=== PATIENT | female | born 1925 | race Caucasian/White ===

== ENCOUNTER 2016-11-13 12:42 | Inpatient (IN) ==
[2016-11-13] MEDS ORDERED: Aspirin 81 MG TAB.CHEW PO ONE (12:47)
[2016-11-13 13:06] LABS: Basophils % 0.4 %; Eosinophils % 0.1 %; Hematocrit 35.4 % (35.3-44.9); Hemoglobin 11.8 g/dL (11.5-15.4); Immature Granulocytes % 0.4 % (0-4); Lymphocytes # 0.5 K/mcL (0.6-4.6); Lymphocytes % 6.3 %; Mean Corpuscular HGB Conc 33.3 g/dL (31.6-35.5); Mean Corpuscular Hemoglobin 30.2 pg (28.0-33.3); Mean Corpuscular Volume 90.5 fL (83.0-100.0); Monocytes # 0.3 K/mcL (0.0-1.3); Monocytes % 4.1 %; Neutrophils # 6.3 K/mcL (1.6-8.9); Platelet Count 171 K/mcL (140-400); Red Blood Count 3.91 M/mcL (3.82-4.97); Red Cell Distribution Width 13.8 % (11.5-14.5); Segmented Neutrophils % 88.7 %
[2016-11-13 13:10] LABS: INR 1.6
[2016-11-13 13:17] LABS: Calcium 10.2 mg/dL (8.6-10.8); Potassium 2.9 mEq/L (3.5-4.5)
[2016-11-13] MEDS ORDERED: Nitroglycerin 0.4 MG TAB.SUBL SL PRN (13:27)
--- NOTE | 2016-11-13 13:28 | Emergency Department Note ---
Disposition Clinical Impression: Elevated troponin Chest pain Qualifiers: Chest pain type: unspecified Qualified Code(s): R07.9 - Chest pain, unspecified CKD (chronic kidney disease) Qualifiers: Chronic kidney disease stage: stage 3 (moderate) Qualified Code(s): N18.3 - Chronic kidney disease, stage 3 (moderate) Disposition: Admitted As Inpatient Condition: Good Chest Pain HPI - General Chief Complaint: ED Chest Pain Stated Complaint: chest pain Time Seen by Provider: 11/13/16 12:47 Source: EMS Mode of arrival: EMS Limitations: no limitations Vital Signs Reviewed: Yes Nursing Notes Reviewed: Yes - History of Present Illness HPI Narrative: 89-year-old female history of A. fib, CHF with a history of pacemaker since for evaluation of chest pain that started early this morning. Nonexertional retrosternal without radiation. No history of this pain in the past. Patient denies any vomiting but does note some nausea. No abdominal pain. No shortness of breath. Patient denies history of pain in the past. Patient denies any aggravating or alleviating symptoms. Patient states that she is on eloquent. Patient was told that she should not take aspirin by her primary doctor because she is on eloquent. Patient refused aspirin in route and also on arrival in the ER. Patient received 2 nitroglycerin prior to arrival without significant relief area will trial nitroglycerin here in the emergency department Pt complaint: chest pain Onset (ago): hour(s) Severity scale (1-10): 7 - Related Data Home Medications Medication Instructions Recorded Confirmed Furosemide [Lasix] 20 mg PO DAILY 06/12/15 11/13/16 LevETIRAcetam [Keppra] 250 mg PO DAILY 06/12/15 11/13/16 Potassium Chloride 10 meq PO DAILY 06/12/15 11/13/16 Chlorthalidone 25 mg PO DAILY 06/16/15 11/13/16 Apixaban [Eliquis] 2.5 mg PO BID 08/11/16 11/13/16 Acetaminophen [Tylenol] 1,000 mg PO BID PRN 11/13/16 11/13/16 Clotrimazole 1% CRM [Lotrimin 1%] 1 appl TP BID 11/13/16 11/13/16 Melatonin 5 mg PO HS 11/13/16 11/13/16 Mupirocin [Bactroban Oint] 1 appl TP BID 11/13/16 11/13/16 Ondansetron HCl [Zofran] 4 mg PO QID PRN 11/13/16 11/13/16 Tramadol HCl [Ultram] 50 mg PO BID PRN 11/13/16 11/13/16 Allergies Allergy/AdvReac Type Severity Reaction Status Date / Time azithromycin Allergy See Verified 11/13/16 12:44 [From Zithromax Z-Kimo] Comments Sulfa (Sulfonamide Allergy See Verified 11/13/16 12:44 Antibiotics) Comments All systems ED: reviewed and negative except as stated. Constitutional: Reports: as per HPI. Denies: fever Eyes: Reports: as per HPI ENT ED: Reports: as per HPI Cardiovascular: Reports: as per HPI, chest pain. Denies: palpitations Respiratory: Reports: as per HPI Gastrointestinal: Reports: as per HPI, nausea. Denies: abdominal pain, vomiting Genitourinary: Reports: as per HPI Musculoskeletal: Reports: as per HPI Integumentary: Reports: as per HPI Neurological: Reports: as per HPI Psychiatric: Reports: as per HPI Endocrine: Reports: as per HPI Chest Pain PMH - Past Medical History Medical history: Reports: atrial fibrillation, CHF, TIA Surgical history: Reports: non-contributory, thyroidectomy Psychiatric history: Reports: anxiety VIDEO PRODUCTION ENGINEER history: Reports: no VIDEO PRODUCTION ENGINEER history, other - Social History Smoking Status: Never smoker Alcohol use: Reports: none Drug use: Reports: none Physical Exam - General Limitations: no limitations General appearance: alert, in no apparent distress - Head Head exam: atraumatic, normocephalic, normal inspection - Eye Eye exam: Present: normal appearance, EOMI - ENT ENT exam: normal exam, mucous membranes moist - Neck Neck exam: Present: normal inspection, trachea midline - Chest Chest inspection: Present: normal inspection, symmetric chest wall rise - Respiratory Respiratory exam: Present: normal lung sounds bilaterally. Absent: respiratory distress - Cardiovascular Cardiovascular exam: Present: regular rate, normal rhythm - Abdominal Exam Abdominal exam: Present: soft, Non-Tender - Extremities Exam Extremities exam: Present: normal inspection. Absent: pedal edema - Back Exam Back exam: Present: normal inspection - Neurological Exam Neurological exam: Present: alert, oriented X3 - Skin Skin exam: Present: warm, dry, intact, normal color Course Vital Signs Temperature 98.3 F 11/13/16 12:49 Pulse Rate 68 11/13/16 12:49 Respiratory Rate 16 11/13/16 12:49 Blood Pressure 132/72 11/13/16 12:49 O2 Sat by Pulse Oximetry 97 11/13/16 12:49 Temperature 98.2 F 11/13/16 19:37 Pulse Rate 72 11/13/16 19:37 Respiratory Rate 18 11/13/16 19:37 Blood Pressure 138/71 11/13/16 19:37 O2 Sat by Pulse Oximetry 94 11/13/16 19:37 Oxygen Delivery Oxygen Delivery Room Air Chest Pain - MDM Narrative Medical decision making narrative: 89-year-old female presents for violation of chest pain. Patient states pain started this morning. Patient's pain was not entirely resolved with nitroglycerin. Patient received small doses of opioids to further resolve the pain. Patient does have a pacemaker. Patient's chest x-ray and lab work are significant for an elevated troponin which has not been elevated in the past. Patient does have an elevated kidney function as well. Patient did have prior elevated troponins but not recently. Patient was admitted to the hospitalist service for further evaluation. Patient does live at home. - Lab Data Lab results reviewed: Yes I reviewed the patient's lab results. Result diagrams: 11/13/16 12:58 11/13/16 12:58 Lab Results 11/13/16 11/13/16 11/13/16 Range/Units 12:58 12:58 12:58 WBC 7.1 (4.3-11.1) K/mcL RBC 3.91 (3.82-4.97) M/mcL Hgb 11.8 (11.5-15.4) g/dL Hct 35.4 (35.3-44.9) % MCV 90.5 (83.0-100.0) fL MCH 30.2 (28.0-33.3) pg MCHC 33.3 (31.6-35.5) g/dL RDW 13.8 (11.5-14.5) % Plt Count 171 (140-400) K/mcL MPV 10.0 (9.4-12.4) fL Immature Gran % 0.4 (0-4) % Seg Neutrophils % 88.7 % Lymphocytes % 6.3 % Monocytes % 4.1 % Eosinophils % 0.1 % Basophils % 0.4 % Neutrophils # 6.3 (1.6-8.9) K/mcL Lymphocytes # 0.5 L (0.6-4.6) K/mcL Monocytes # 0.3 (0.0-1.3) K/mcL Eosinophils # 0.0 (0.0-0.6) K/mcL Basophils # 0.0 (0.0-0.2) K/mcL PT 18.0 H (9.4-12.1) Seconds INR 1.6 Sodium 140 (136-145) mEq/L Potassium 2.9 L (3.5-4.5) mEq/L Chloride 100 (98-109) mEq/L Carbon Dioxide 29 (19-29) mEq/L BUN 54 H (7-20) mg/dL Creatinine 1.87 H (0.57-1.11) mg/dL Est GFR ( Amer) 31 L (> 60) Est GFR (Non-Af Amer) 25 L (> 60) BUN/Creatinine Ratio 29 H (6-26) Glucose 130 H (70-99) mg/dL Calculated Osmolality 307 H (280-300) Calcium 10.2 (8.6-10.8) mg/dL Troponin I (0-0.03) ng/mL 11/13/16 Range/Units 12:58 WBC (4.3-11.1) K/mcL RBC (3.82-4.97) M/mcL Hgb (11.5-15.4) g/dL Hct (35.3-44.9) % MCV (83.0-100.0) fL MCH (28.0-33.3) pg MCHC (31.6-35.5) g/dL RDW (11.5-14.5) % Plt Count (140-400) K/mcL MPV (9.4-12.4) fL Immature Gran % (0-4) % Seg Neutrophils % % Lymphocytes % % Monocytes % % Eosinophils % % Basophils % % Neutrophils # (1.6-8.9) K/mcL Lymphocytes # (0.6-4.6) K/mcL Monocytes # (0.0-1.3) K/mcL Eosinophils # (0.0-0.6) K/mcL Basophils # (0.0-0.2) K/mcL PT (9.4-12.1) Seconds INR Sodium (136-145) mEq/L Potassium (3.5-4.5) mEq/L Chloride (98-109) mEq/L Carbon Dioxide (19-29) mEq/L BUN (7-20) mg/dL Creatinine (0.57-1.11) mg/dL Est GFR ( Amer) (> 60) Est GFR (Non-Af Amer) (> 60) BUN/Creatinine Ratio (6-26) Glucose (70-99) mg/dL Calculated Osmolality (280-300) Calcium (8.6-10.8) mg/dL Troponin I 0.07 H* (0-0.03) ng/mL - Radiology Data Radiology results reviewed: Yes I reviewed the patient's radiology results. - EKG Data EKG attestation: Yes I reviewed and interpreted this EKG. EKG results narrative: Electronic ventricular pacemaker at a rate of 78. QTC 47. QRS duration 146. No ST changes that are notable on EKG. S.B.ALakeisha - Barbara.Karin.Pauline Situation: Demographics Background: Presenting Complaint Assessment: Vital Signs, Course and respsone to treatment, Patient/Family Expectation Recommendation: Barrier(s) to disposition, Recommendation based on pending studies, treatments, or consults S.B.A.RReji Report Given to: Dr. Dalia Urbano Repor Time: 14:39
[2016-11-13] MEDS ORDERED: *HR* Morphine 2 MG/ML SYRINGE IVP ONE (13:36)
[2016-11-13] MEDS ORDERED: Ondansetron 4 MG/2 ML VIAL IVP ONE (13:36)
--- NOTE | 2016-11-13 13:44 | Emergency Department Note ---
START Narrative - START START: I examined this patient and my medical decision-making was reviewed with the PRODUCTION PLANNER/PA/Advanced Practice Nurse/Resident Physician. I agree with the documented findings, disposition and treatment plan as described except to the extent set forth below. ED attending note: Patient seen with emergency medicine resident Dr Matt. We independently evaluated the patient. We independently had [id number] contact with the patient. Please see a copy of his note for details of the history and physical, evaluation, management and disposition of this emergency Department patient. Briefly: A 89-year-old female history of A. fib and pacemaker, presents with nonexertional chest pain unresponsive to nitroglycerin. Patient has not had a recent stress test. She does have a chronic kidney disease. EKG shows paced rhythm with no acute ischemic changes. Patient is hemodynamically stable. Receiving a cardiac analgesics to help control her chest discomfort. Troponin elevated. Provided 45 minutes critical care service for this patient. Patient will be admitted for chest pain with elevated troponin acute coronary syndrome. Disposition pending, awaiting callback from hospitalists. Patient is comfortable with this plan.
[2016-11-13] MEDS ORDERED: Naloxone 0.4 MG/ML INJ IVP PRN (17:29)
[2016-11-13] MEDS ORDERED: Acetaminophen 325 MG TABLET PO PRN (17:29)
--- NOTE | 2016-11-13 18:14 | Internal Med History&Physical ---
Date of Encounter: 11/13/16 Time of Encounter: 18:10 Assessment and Plan (1) Chest pain Current visit: Yes Status: Acute This is not likely a chest pain. This is most likely and epigastric pain. This is likely secondary to gastroenteritis. Patient has ongoing nausea. She is dehydrated. That is the reason her creatinine is elevated. Plan: We will start patient on IV normal saline 75 mL per hour. We will check labs tomorrow morning. We will cycle troponin. We will get echocardiogram. Qualifiers: Chest pain type: unspecified Qualified Code(s): R07.9 - Chest pain, unspecified (2) Elevated troponin Current visit: Yes Status: Acute Likely secondary to renal impairment. The reason for elevated troponin can be multifactorial. (3) CKD (chronic kidney disease) Current visit: Yes Status: Acute Chronic kidney disease is likely secondary age related. The possibility of an acute component secondary to dehydration. Qualifiers: Chronic kidney disease stage: stage 3 (moderate) Qualified Code(s): N18.3 - Chronic kidney disease, stage 3 (moderate) (4) DVT prophylaxis Current visit: Yes Status: Acute Patient on Elliquis Patient's home medication is Keppra which we continued. Patient is also taking elliquis and the reason for which she is not sure. Medical decision making: This patient has a moderate to severe risk of worsening cardiac perfusion in spite of being on appropriate treatment. Internal Medicine - H&P: HPI Chief complaint: Epigastric discomfort Admitted From: Emergency Dept Plans for Post Hospital Care: Home History of present illness: PCP: Dr Rod Russell. Brief PMH: HTN, Epilepsy, on Anticoagulation ? Cause HPI: Patient was complaining of a epigastric pain which was nonradiating and localized pain associated with nausea. Her symptoms started this morning around 7:30 am. Patient was at home by herself. She tried some home remedies but it did not help and that is the reason she called 911. Patient was evaluated by EMS. She denies chest pain, palpitation, dizziness, diplopia, vomiting, abdominal pain or diarrhea. Course in the emergency room: Patient was evaluated in the emergency room. Basic labs were drawn. Noted that patient has renal impairment. Also noted that patient's troponin is elevated. Reason for admission: Rule out ACS. Family history: Noncontributory Past Med Surg Social Fam HX - Past Medical History Medical history: atrial fibrillation, CHF, TIA Psychiatric history: anxiety - Past Surgical History Surgical History: non-contributory, thyroidectomy - Social History Smoking Status: Never smoker Smokeless Tobacco Status: No Alcohol use: none Drug use: none - Family History Mother History Unknown: Yes Father History Unknown: Yes Internal Medicine - H&P: Meds Furosemide [Lasix] 20 mg PO DAILY 06/12/15 [History] LevETIRAcetam [Keppra] 250 mg PO DAILY 06/12/15 [History] Potassium Chloride 10 meq PO DAILY 06/12/15 [History] Chlorthalidone 25 mg PO DAILY 06/16/15 [History] Apixaban [Eliquis] 2.5 mg PO BID 08/11/16 [History] Acetaminophen [Tylenol] 1,000 mg PO BID PRN 11/13/16 [History] Clotrimazole 1% CRM [Lotrimin 1%] 1 appl TP BID 11/13/16 [History] Melatonin 5 mg PO HS 11/13/16 [History] Mupirocin [Bactroban Oint] 1 appl TP BID 11/13/16 [History] Ondansetron HCl [Zofran] 4 mg PO QID PRN 11/13/16 [History] Tramadol HCl [Ultram] 50 mg PO BID PRN 11/13/16 [History] Allergies azithromycin [From Zithromax Z-Kimo] Allergy (Verified 11/13/16 12:44) See Comments UNKNOWN REACTION Sulfa (Sulfonamide Antibiotics) Allergy (Verified 11/13/16 12:44) See Comments UNKNOWN REACTION All Systems PM: A 10-system review of systems was performed and is negative for pertinent findings except as documented above in the HPI. - Constitutional Constitutional: no chills, no fever(s), no night sweats - EENT Eyes: no change in vision, no discharge, no pain, no photophobia Ears: no ear discharge, no ear pain, no tinnitus Nose, mouth and throat: no dysphagia, no nasal discharge, no neck pain, no sore throat - Cardiovascular Cardiovascular ROS IM: no chest pain, no diaphoresis, no dyspnea, no lightheadedness, no palpitations, no syncope - Respiratory Respiratory: no cough, no dyspnea, no wheezing, no excessive phlegm production - Gastrointestinal Gastrointestinal: no abdominal pain, no diarrhea, no hematemesis, no hematochezia, no melena, no nausea, no vomiting - Genitourinary Genitourinary: no change in urinary stream, no dysuria, no flank pain, no hematuria - Musculoskeletal Musculoskeletal ROS IM: no numbness, no tingling - Integumentary Integumentary IM: no rash, no unusual bruising - Neurological Neurological ROS: no confusion, no convulsions, no focal weakness, no numbness, no tingling, no tremor(s) - Hematologic/Lymphatic Hematologic/Lymphatic: no easy bruising - Constitutional Vitals: Temp Pulse Resp BP Pulse Ox 97.6 F 86 16 122/78 97 11/13/16 15:20 11/13/16 15:20 11/13/16 15:20 11/13/16 15:20 11/13/16 15:20 General appearance: Present: A&O X 3, pleasant, no acute distress, answers questions appropriately - Head Head exam: Present: atraumatic, normocephalic - Eye Eye exam: Present: PERRL, conjuntiva pink, sclera anicteric Pupils: Present: PERRL - Neck Neck exam general surgery: Present: supple, trachea midline. Absent: lymphadenopathy - Respiratory Respiratory exam: Present: CTAB. Absent: accessory muscle use, rales, rhonchi, wheezes - Cardiovascular Cardiovascular exam: Present: RRR, +S1, +S2. Absent: diastolic murmur, gallop, rubs, systolic murmur - GI/Abdominal GI/Abdominal exam: Present: normal bowel sounds, soft, no peritoneal signs. Absent: distended, tenderness - Extremities Exam Extremities exam: Present: warm, radial pulses palpable and symetrical. Absent : calf tenderness, cyanotic, pedal edema - Neurological Exam Neurological exam: Present: CN II-XII intact, oriented X3, no focal deficits. Absent: pronater drift, facial droop, speech deficit - Skin Skin exam: Present: dry, intact Internal Med - H&P Results - Labs CBC & Chem 7: 11/13/16 12:58 11/13/16 12:58 Labs: Results discussed with emergency room physician Teddy
[2016-11-13] MEDS: 0.9 % Sodium Chloride 1,000 ML IVC SCH (19:02)
[2016-11-13] MEDS: Melatonin 3 MG TABLET PO SCH (20:47)
[2016-11-13] MEDS: APIXABAN 2.5 MG TABLET PO SCH (20:47)
[2016-11-14 04:04] LABS: Basophils % 0.3 %; Eosinophils % 0.3 %; Hematocrit 33.2 % (35.3-44.9); Immature Granulocytes % 0.3 % (0-4); Lymphocytes # 0.9 K/mcL (0.6-4.6); Lymphocytes % 15.3 %; Mean Corpuscular HGB Conc 33.1 g/dL (31.6-35.5); Mean Corpuscular Volume 90.5 fL (83.0-100.0); Mean Platelet Volume 10.6 fL (9.4-12.4); Monocytes # 0.5 K/mcL (0.0-1.3); Monocytes % 8.8 %; Neutrophils # 4.5 K/mcL (1.6-8.9); Platelet Count 153 K/mcL (140-400); Red Blood Count 3.67 M/mcL (3.82-4.97); Red Cell Distribution Width 13.7 % (11.5-14.5)
[2016-11-14 04:25] LABS: Albumin 3.6 g/dL (3.5-5.0); Albumin/Globulin Ratio 1.2 (1.1-2.2); Bilirubin,Total 1.5 mg/dL (0.2-1.2); Calcium 9.8 mg/dL (8.6-10.8); Chol/HDL Ratio 5.1 (0-4.9); Globulin 3.1 g/dL (2.4-3.5); Magnesium 2.2 mg/dL (1.6-2.6); Phosphorous 4.1 mg/dL (2.3-4.7); Potassium 3.5 mEq/L (3.5-4.5); Total Protein 6.7 g/dL (6.0-8.3)
[2016-11-14] MEDS ORDERED: 0.9 % Sodium Chloride 500 ML IVC ONE (08:16)
[2016-11-14] MEDS: levETIRAcetam 250 MG TABLET PO SCH (08:33)
[2016-11-14] MEDS: APIXABAN 2.5 MG TABLET PO SCH ×2 (08:33→22:11)
[2016-11-14] MEDS: 0.9 % Sodium Chloride 1,000 ML IVC SCH (09:28)
--- NOTE | 2016-11-14 10:11 | Internal Med Progress Note ---
Date of Encounter: 11/14/16 Time of Encounter: 10:47 - Assessment and plan (1) Chest pain Current Visit: Yes Status: Acute Assessment and plan: Per H/P, patient has epigastric pain patient is a poor historian EKG showed Afib She had troponin elevation peak 0.11 She is not having chest pain at time of review She is on eliquis for AC I suspect her troponin elevation is from CHARLES on CKD ECHO has been ordered, will follow Qualifiers: Chest pain type: unspecified Qualified Code(s): R07.9 - Chest pain, unspecified (2) Atrial fibrillation Current Visit: Yes Status: Chronic Assessment and plan: Chronic, s/p AICD HR controlled Continue meds Continue eliquis Qualifiers: Atrial fibrillation type: chronic Qualified Code(s): I48.2 - Chronic atrial fibrillation (3) Seizure disorder Current Visit: Yes Status: Chronic Assessment and plan: Per patient and EMR, it was a suspicion of Seizures in 2013 when she had recurrent syncope She has been filling keppra at her pharmacy but has refused to take it in- patient Continue seizure precautions Encourage to take medicatio (4) Elevated troponin Current Visit: Yes Status: Acute Assessment and plan: As in chest pain, downtrending, follow ECHO (5) DVT prophylaxis Current Visit: Yes Status: Acute Assessment and plan: On Eliquis (6) Acute on chronic renal insufficiency Current Visit: Yes Status: Acute Assessment and plan: CKD III with baseline between 1.5-1.7 It is likely that her CKD has progressed since 2014 However, will give 500cc bolus will reevaluate a.m Renal eval if persistent - Subjective Interval history: Seen and evaluated at bedside When asked about her symptoms She reports feeling "chest tightness but is pointing to her epigastric region She denies nausea, vomiting, diaphoresis She has Afib with an ICD, CHF, Epilepsy and CKD III troponin has been adynamic-0.07-0.11-0.08 EKG is paced rhythm I have ordered an ECHO, will follow Kidney function is slightly worse today than on admission, potassium has improved - Constitutional Vitals: Temp Pulse Resp BP Pulse Ox 98.1 F 71 17 94/55 95 11/14/16 07:48 11/14/16 07:48 11/14/16 07:48 11/14/16 07:48 11/14/16 08:36 General appearance: Present: A&O X 3, pleasant, no acute distress, answers questions appropriately - Head Head exam: Present: atraumatic - Eye Eye exam: Present: PERRL, conjuntiva pink, sclera anicteric Pupils: Present: PERRL - Neck Neck exam general surgery: Present: supple, trachea midline. Absent: lymphadenopathy - Respiratory Respiratory exam: Present: CTAB. Absent: accessory muscle use, rales, rhonchi, wheezes Additional comments: Chest wall not tender, AICD site is clean - Cardiovascular Cardiovascular exam: Present: RRR, +S1, +S2. Absent: diastolic murmur, gallop, rubs, systolic murmur - GI/Abdominal GI/Abdominal exam: Present: normal bowel sounds, soft, no peritoneal signs. Absent: distended, tenderness - Extremities Exam Extremities exam: Present: warm, radial pulses palpable and symetrical. Absent : calf tenderness, cyanotic, pedal edema - Neurological Exam Neurological exam: Present: alert, CN II-XII intact, oriented X3, no focal deficits. Absent: pronater drift, facial droop, speech deficit - Skin Skin exam: Present: dry, intact Internal Medicine: Result - Labs CBC & Chem 7: 11/14/16 03:15 11/14/16 03:15 Labs: Short CBC 11/14/16 Range/Units 03:15 WBC 6.0 (4.3-11.1) K/mcL Hgb 11.0 L (11.5-15.4) g/dL Hct 33.2 L (35.3-44.9) % Plt Count 153 (140-400) K/mcL Neutrophils # 4.5 (1.6-8.9) K/mcL BMP 11/14/16 03:15 Sodium 141 Potassium 3.5 Chloride 101 Carbon Dioxide 28 BUN 52 H Creatinine 2.09 H Glucose 106 H Calcium 9.8 Cardiac Enzymes 11/13/16 11/14/16 11/14/16 Range/Units 18:52 03:15 09:32 Troponin I 0.09 H* 0.11 H* 0.08 H* (0-0.03) ng/mL Liver Function 11/14/16 Range/Units 03:15 Total Bilirubin 1.5 H (0.2-1.2) mg/dL AST 21 (5-34) Units/L ALT 7 (0-55) Units/L Alkaline Phosphatase 43 (38-126) Units/L Albumin 3.6 (3.5-5.0) g/dL - ABG Interpretation ABG results: PT/INR, D-dimer PT 18.0 Seconds (9.4-12.1) H 11/13/16 12:58 Consult Discharge Plan - Plan Referrals: Rod Russell MD [Primary Care Provider] - 11/20/16 11:00 am (Follow up with Michelle Garland CNP)
--- NOTE | 2016-11-14 16:45 | Electrocardiograph Report ---
[place] [id number] Test Date: 2016-11-13 Pat Name: Evangelina Canales Department: 112 Room: 2A24 Gender: F Online Advertising Analyst: : [id number] Requested By: Lucas Lopez Order Number: [id number] Reading MD: Daniela Garcia Measurements Intervals [place] Rate: 75 P: ND: 0 QRS: 232 QRSD: 155 T: 43 QT: 460 QTc: 488 Interpretive Statements ELECTRONIC VENTRICULAR PACEMAKER ABNORMAL RHYTHM ECG Electronically Signed On 11-14-2016 16:44:18 EDT by Daniela Garcia
[2016-11-14] MEDS: Melatonin 3 MG TABLET PO SCH (22:11)
--- NOTE | 2016-11-14 22:36 | Electrocardiograph Report ---
[place] [facility] Test Date: 2016-11-13 Pat Name: Evangelina Canales Department: 104 Room: 2A24 Gender: F Patent Agent: : 1925 Requested By: Moris Powers Order Number: [id number] Reading MD: Bhaskar Garcia MD Measurements Intervals [place] Rate: 75 P: DC: 0 QRS: 231 QRSD: 146 T: 39 QT: 458 QTc: 487 Interpretive Statements ELECTRONIC VENTRICULAR PACEMAKER ABNORMAL RHYTHM ECG Electronically Signed On 11-14-2016 22:35:10 EDT by Bhaskar Garcia MD
[2016-11-15] MEDS: levETIRAcetam 250 MG TABLET PO SCH (08:35)
[2016-11-15] MEDS: APIXABAN 2.5 MG TABLET PO SCH ×2 (08:36→22:14)
[2016-11-15] MEDS: 0.9 % Sodium Chloride 1,000 ML IVC SCH (08:36)
[2016-11-15 08:42] LABS: Basophils % 0.7 %; Eosinophils # 0.1 K/mcL (0.0-0.6); Eosinophils % 1.3 %; Hematocrit 34.4 % (35.3-44.9); Hemoglobin 11.1 g/dL (11.5-15.4); Immature Granulocytes % 0.8 % (0-4); Immature Platelets 2.8 % (1.1-6.1); Lymphocytes # 1.4 K/mcL (0.6-4.6); Lymphocytes % 22.8 %; Mean Corpuscular HGB Conc 32.3 g/dL (31.6-35.5); Mean Corpuscular Hemoglobin 29.8 pg (28.0-33.3); Mean Corpuscular Volume 92.5 fL (83.0-100.0); Mean Platelet Volume 10.2 fL (9.4-12.4); Monocytes # 0.5 K/mcL (0.0-1.3); Monocytes % 7.9 %; Neutrophils # 4.1 K/mcL (1.6-8.9); Platelet Count 155 K/mcL (140-400); Red Blood Count 3.72 M/mcL (3.82-4.97); Red Cell Distribution Width 13.6 % (11.5-14.5); Segmented Neutrophils % 66.5 %
[2016-11-15 08:57] LABS: Calcium 9.5 mg/dL (8.6-10.8); Potassium 3.4 mEq/L (3.5-4.5)
--- NOTE | 2016-11-15 12:01 | Internal Med Progress Note ---
Date of Encounter: 11/15/16 Time of Encounter: 12:00 - Assessment and plan (1) Chest pain Current Visit: Yes Status: Acute Assessment and plan: Per H/P, patient has epigastric pain patient is a poor historian, however, she denies CP today and same yesterday EKG showed Afib She had troponin elevation peak 0.11-0.08 She is on eliquis for AC, continue same I suspect her troponin elevation is from CHARLES on CKD ECHO has been ordered, will follow if ECHO does not show WMA, will discharge patient home Qualifiers: Chest pain type: unspecified Qualified Code(s): R07.9 - Chest pain, unspecified (2) Atrial fibrillation Current Visit: Yes Status: Chronic Assessment and plan: Chronic, s/p AICD HR controlled Continue meds Continue eliquis Qualifiers: Atrial fibrillation type: chronic Qualified Code(s): I48.2 - Chronic atrial fibrillation (3) Seizure disorder Current Visit: Yes Status: Chronic Assessment and plan: Per patient and EMR, it was a suspicion of Seizures in 2013 when she had recurrent syncope She has been filling keppra at her pharmacy but has refused to take it in- patient Continue seizure precautions Encourage to take medications (4) Elevated troponin Current Visit: Yes Status: Acute Assessment and plan: As in chest pain, downtrending, follow ECHO (5) DVT prophylaxis Current Visit: Yes Status: Acute Assessment and plan: On Eliquis (6) Acute on chronic renal insufficiency Current Visit: Yes Status: Acute Assessment and plan: CKD III with baseline between 1.5-1.7 It is likely that her CKD has progressed since 2014 However, will give 500cc bolus Cr and GFR slightly improved, almost at baseline - Subjective Interval history: Seen and evaluated at bedside She denies chest pain, nausea, vomiting, diaphoresis She reports her epigastric discomfort has improved She has Afib with an ICD, CHF, Epilepsy and CKD III troponin has been adynamic-0.07-0.11-0.08 EKG is paced rhythm Awaiting ECHO report - Constitutional Vitals: Temp Pulse Resp BP Pulse Ox 97.8 F 72 18 128/66 95 11/15/16 11:39 11/15/16 11:39 11/15/16 11:39 11/15/16 11:39 11/15/16 11:39 General appearance: Present: A&O X 3, pleasant, no acute distress, answers questions appropriately - Head Head exam: Present: atraumatic, normocephalic - Eye Eye exam: Present: PERRL, conjuntiva pink, sclera anicteric Pupils: Present: PERRL - Neck Neck exam general surgery: Present: supple, trachea midline. Absent: lymphadenopathy - Respiratory Respiratory exam: Present: CTAB. Absent: accessory muscle use, rales, rhonchi, wheezes - Cardiovascular Cardiovascular exam: Present: RRR, +S1, +S2. Absent: diastolic murmur, gallop, rubs, systolic murmur - GI/Abdominal GI/Abdominal exam: Present: normal bowel sounds, soft, no peritoneal signs. Absent: distended, tenderness - Extremities Exam Extremities exam: Present: warm, radial pulses palpable and symetrical. Absent : calf tenderness, cyanotic, pedal edema - Neurological Exam Neurological exam: Present: alert, CN II-XII intact, oriented X3, no focal deficits. Absent: pronater drift, facial droop, speech deficit - Skin Skin exam: Present: dry, intact Internal Medicine: Result - Labs CBC & Chem 7: 11/15/16 08:16 11/15/16 08:16 Labs: Short CBC 11/15/16 Range/Units 08:16 WBC 6.1 (4.3-11.1) K/mcL Hgb 11.1 L (11.5-15.4) g/dL Hct 34.4 L (35.3-44.9) % Plt Count 155 (140-400) K/mcL Neutrophils # 4.1 (1.6-8.9) K/mcL BMP 11/15/16 08:16 Sodium 141 Potassium 3.4 L Chloride 106 Carbon Dioxide 30 H BUN 46 H Creatinine 1.71 H Glucose 97 Calcium 9.5 - ABG Interpretation ABG results: PT/INR, D-dimer PT 18.0 Seconds (9.4-12.1) H 11/13/16 12:58 Consult Discharge Plan - Plan Referrals: Rod Russell MD [Primary Care Provider] - 11/20/16 11:00 am (Follow up with Michelle Garland CNP)
--- NOTE | 2016-11-15 14:41 | ECHO - Doppler Report ---
Echocardiogram Name: Evangelina Canales Date of Study: 11/15/2016 Date: 1925 Ht: 60.0 in Medical Record#: [id number] Age: 89 Wt: 90.0 lb Gender: Female BSA: 1.33 Order #: [id number] Location: [facility] Room #: 2A24 Reading Physician: Frederick Mckeon DO, [facility] Appeals Assistant: Jen Rocha Ordering Physician: Kane Manzanares MD Primary Physician: Rod Russell MD Indications: Chest pain, Epigastric pain Impressions: LVEF 35-40%. Global left ventricular systolic dysfunction. Indeterminate diastolic function. Normal right ventricular structure and function. Extremely severe enlargement of the left atrium. Moderately calcified aortic valve leaflets. Mild aortic regurgitation. Severely thickened, rheumatic-appearing mitral valve leaflets with reduced excursion. Moderate mitral regurgitation, which could be underestimated. Mild mitral stenosis suggested by Doppler (Mean gradient 4 mmHg). Visually, the severity of mitral stenosis appears worse. Moderate tricuspid regurgitation. Mild pulmonary hypertension. Left Ventricular Wall Motion: Rest Echo Findings The apex, apical inferior, mid inferior, basal inferior, apical anterior, mid anterior, basal anterior, apical septal, mid inferior septal, basal inferior septal, apical lateral, mid anterior lateral, basal anterior lateral, mid anterior septal, mid inferior lateral, basal anterior septal and basal inferior lateral alfredo were hypokinetic. Findings: Study Quality * Technically adequate exam. ECG Findings * Paced rhythm. Left Ventricle * LVEF 35-40%. * Normal LV chamber size. * Mild concentric left ventricular hypertrophy. * Global left ventricular systolic dysfunction. * Indeterminate diastolic function. Right Ventricle * Normal right ventricular structure and function. Left Atrium * Extremely severe enlargement of the left atrium. Right Atrium * Mildly dilated right atrium. Interatrial Septum * No evidence of PFO by color Doppler. Aortic Valve * Trileaflet aortic valve. * Moderately calcified aortic valve leaflets. * Mild aortic regurgitation. * No aortic stenosis. Mitral Valve * Severely thickened mitral valve leaflets with reduced excursion. * Mild mitral annular calcification. * Moderate mitral regurgitation, which could be underestimated. * Mild mitral stenosis suggested by Doppler (Mean gradient 4 mmHg). Visually, the severity of mitral stenosis appears worse. Tricuspid Valve * Normal tricuspid valve structure. * Moderate tricuspid regurgitation. * Mild pulmonary hypertension. Pulmonic Valve * Normal pulmonic valve structure and function. * Trace pulmonic regurgitation. Aorta * Normally sized aortic root. Pericardium * The pericardium appears normal. IVC * Normal IVC dimensions and inspiratory collapse. Pulmonary Artery * Normal visualized portions of the main pulmonary artery. Device lead * A device lead was visualized in the right atrium and right ventricle. History Hypertension Rheumatic Fever Family History of CAD Congestive Heart Failure Pacer/ICD Implant 08/24/2014 a Previous Echo was performed. Measurements: BP: 122/ 62 2D Normal Values RVIDd: 2.80 cm <2.7 cm IVSd: 1.60 cm 0.6 - 1.0 cm LVIDd: 4.80 cm 3.7 - 5.6 cm LVPWd: 1.40 cm 0.6 - 1.1 cm LVIDs: 3.90 cm 1.5 - 3.6 cm AO: 2.50 cm < 4.0 cm LA: 5.60 cm 2.0 - 4.0cm %FS: 18.70 cm >25 % LA volume: 252 Mitral Valve Peak Velocity 1.60 m/sec Mean Velocity:.92 m/sec Peak Grad:10.00 mmHg Mean Grad:4.00 mmHg Pressure Time:171.00 msec Valve Area:1.29 cm2 Peak E:1.26 m/sec Peak E' Lat Isai:6.63 cm/s Peak E' Med Isai:3.51 cm/s E/E' Lat Ratio:19 E/E' Med Ratio:35.9 Tricuspid Valve TV Regurg Peak Grad: 34.00mmHg TV Regurg Peak Isai: 2.92m/sec Updated by Frederick Mckeon DO, FACPatti, JUSTIN MENDOZA on 11/15/2016 2:34:45 PM electronically signed on 11/15/2016 2:36:48 PM with status of Final Wall Motion Adams: 1=Normal, 2=Hypokinesis, 3=Akinesis, 4=Dyskinesis, 5=Aneurysmal, 6=Hyperkinetic, X=Not Visualized (Blank)=Missing
--- NOTE | 2016-11-15 15:54 | Cardiology Consult Note ---
Date of Encounter: 11/15/16 Time of Encounter: 16:00 Assessment and Plan (1) Elevated troponin Current Visit: Yes Status: Acute Mild troponin elevation in the setting of CHARLES on CKD; doubt ACS, likely demand ischemia. Presented with epigastric pain, nausea and vomiting. Denies chest pain/ discomfort, arm/jaw/neck/or back pain. Denies dyspnea. ECG shows paced rhythm. Hx of non-ischemic cardiomyopathy. Recommend medical management. Follow-up with Dr. Lara ([facility]) in 2-3 weeks. (2) Non-ischemic cardiomyopathy Current Visit: Yes Status: Acute Long-standing hx of non-ischemic cardiomyopathy with systolic dysfunction dating back to 2006. TTE shows EF 35-40%, prior was 30%. s/p AICD implant--follows [facility]. Appears euvolemic upon exam. Continue home maintenance diuretic. Will add low dose Toprol XL. No ACEi/ARB due to CKD. Follow-up with Dr. Lara at [facility] in the outpatient setting within 2-3 weeks. (3) Atrial fibrillation Current Visit: Yes Status: Chronic Hx of atrial fibrillation, anticoagulated on Eliquis. Rate controlled, avg HR=73 paced. Qualifiers: Atrial fibrillation type: chronic Qualified Code(s): I48.2 - Chronic atrial fibrillation Discussion w patient/family: The assessment and plan as outlined above was discussed with the patient and/or family members who expressed understanding and agreement. All questions were answered. Thank you for involving us in the care of your patient. Please call with any questions. The patient will be discussed and reviewed with Dr. Goyal; changes to be made accordingly. History of Present Illness Consult date: 11/15/16 Requesting physician: Kane Manzanares Consult reason: Cardiomyopathy Chief complaint: Epigastric pain History of present illness: Ms. Canales is a 89 year old female with PMH significant for non-ischemic cardiomyopathy s/p AICD, CKD, and afib (eliquis) who presented to the ED on 11/13 with epigastric pain associated with nausea and vomiting. Cardiology consulted today due to EF 35-40% as demonstrated on TTE. Upon review, patient has a long-standing hx of systolic CHF dating back to 2006. She follows routinely with Dr. Lara at [facility]. Denies recent ICD shock or fire. Prior CV testing includes: TTE (limited) 1/25/15: Moderate-severely decreased LV systolic function, LVEF 30-35%, diffuse hypokinesis with regional variations.Mild concentric left ventricular hypertrophy.Normal right ventricular structure and function.Device lead seen in right atrium and right ventricle. Severely dilated left atrium.Mildly dilated right atrium.Mildly thickened aortic valve leaflets.Moderately thickened rheumatic-appearing mitral valve leaflets. TTE 06/15/14: LVEF 30%. Severe global left ventricular systolic dysfunction, indeterminate diastolic function.Normal RV size with mild hypokinesis. Severely biatrial enlargement. Mild aortic regurgitation.Moderately thickened MV leaflets with reduced mobility. No significant stenosis by Doppler, but likely underestimated. Mild mitral regurgitation.Moderate tricuspid regurgitation.Severe pulmonary hypertension. Estimated RVSP is 55 mmHg.A device lead was visualized in the right atrium and right ventricle. TTE 02/06/2007: EF 35-40% Past Med Surg Social Fam HX - Past Medical History Attestation: Yes The following information was validated with the patient. Source: patient, old records reviewed Medical history: atrial fibrillation, CHF, renal disease, TIA Psychiatric history: anxiety - Past Surgical History Surgical History: non-contributory, thyroidectomy - Social History Smoking Status: Never smoker Smokeless Tobacco Status: No Alcohol use: none Drug use: none - Family History Mother History Unknown: Yes Father History Unknown: Yes Medications and Allergies Furosemide [Lasix] 20 mg PO DAILY 06/12/15 [History] LevETIRAcetam [Keppra] 250 mg PO DAILY 06/12/15 [History] Potassium Chloride 10 meq PO DAILY 06/12/15 [History] Chlorthalidone 25 mg PO DAILY 06/16/15 [History] Apixaban [Eliquis] 2.5 mg PO BID 08/11/16 [History] Acetaminophen [Tylenol] 1,000 mg PO BID PRN 11/13/16 [History] Clotrimazole 1% CRM [Lotrimin 1%] 1 appl TP BID 11/13/16 [History] Melatonin 5 mg PO HS 11/13/16 [History] Mupirocin [Bactroban Oint] 1 appl TP BID 11/13/16 [History] Ondansetron HCl [Zofran] 4 mg PO QID PRN 11/13/16 [History] Tramadol HCl [Ultram] 50 mg PO BID PRN 11/13/16 [History] Allergies azithromycin [From Zithromax Z-Kmio] Allergy (Verified 11/13/16 12:44) See Comments UNKNOWN REACTION Sulfa (Sulfonamide Antibiotics) Allergy (Verified 11/13/16 12:44) See Comments UNKNOWN REACTION All Systems Review: A 10-system review of systems was performed and is negative for pertinent findings except as documented above in the HPI. - Cardiovascular Cardiovascular: as per HPI Physical Examination General: Conversant, Other (thin, frail) Cardiac: Other (irregularly irregular) Lungs: Normal Breath Sounds Neuro: Alert and responsive Abdomen: Soft Skin: No rashes noted on visualized skin Musculoskeletal: No Chest Wall Tenderness Extremities: No Edema, Normal Pulses Results 11/15/16 08:16 11/15/16 08:16 Lab Results 11/15/16 11/15/16 08:16 08:16 WBC 6.1 Hgb 11.1 L Hct 34.4 L Plt Count 155 Sodium 141 Potassium 3.4 L Chloride 106 Carbon Dioxide 30 H BUN 46 H Creatinine 1.71 H Glucose 97 Calcium 9.5 Active Medications Acetaminophen (Tylenol) 650 mg PO Q6HR PRN PRN Reason: Mild Pain (1-3) Stop: 05/15/17 17:30 Apixaban (Eliquis) 2.5 mg PO BID [facility] Stop: 05/15/17 21:01 Last Admin: 11/15/16 08:36 Dose: 2.5 mg Chlorthalidone (Chlorthalidone) 25 mg PO DAILY [facility] Stop: 05/16/17 09:01 Last Admin: 11/15/16 08:36 Dose: 25 mg Levetiracetam (Keppra) 250 mg PO DAILY [facility] Stop: 05/16/17 09:01 Last Admin: 11/15/16 08:35 Dose: Not Given Melatonin (Melatonin) 3 mg PO HS [facility] Stop: 05/15/17 21:01 Last Admin: 11/14/16 22:11 Dose: 3 mg Naloxone HCl (Narcan) 0.4 mg IVP Q2MIN PRN PRN Reason: Opioid Reversal Stop: 05/15/17 17:30 Nitroglycerin (Nitroglycerin) 0.4 mg SL Q5MIN PRN PRN Reason: Chest Pain Stop: 05/15/17 13:28 Omeprazole (Prilosec) 20 mg PO DAILY@0630 [facility] PRN Reason: Protocol Stop: 05/16/17 06:31 Last Admin: 11/15/16 07:13 Dose: 20 mg - Imaging and Cardiology Echo: report reviewed Other Results: 12 hour tele: avg HR=73 no significant event noted. - EKG Interpretation EKG results cardiology: personally reviewed Consult Discharge Plan - Plan Referrals: Rod Russell MD [Primary Care Provider] - 11/20/16 11:00 am (Follow up with Michelle Garland CNP)
[2016-11-15] MEDS: Melatonin 3 MG TABLET PO SCH (22:14)
[2016-11-16] MEDS: APIXABAN 2.5 MG TABLET PO SCH (07:54)
[2016-11-16] MEDS: levETIRAcetam 250 MG TABLET PO SCH (07:56)
[2016-11-16] MEDS ORDERED: Metoprolol XL (24 HR) Succ 25 MG TAB.ER.24H PO SCH (09:00)
--- NOTE | 2016-11-16 09:56 | Discharge Summary ---
Date of Encounter: 11/16/16 Time of Encounter: 09:44 - Discharge Diagnosis (1) Chest pain Priority: Primary Status: Resolved Qualifiers: Chest pain type: unspecified Qualified Code(s): R07.9 - Chest pain, unspecified (2) Atrial fibrillation Priority: Secondary Status: Chronic Qualifiers: Atrial fibrillation type: chronic Qualified Code(s): I48.2 - Chronic atrial fibrillation (3) Seizure disorder Priority: Secondary Status: Chronic (4) Elevated troponin Priority: Primary Status: Acute (5) DVT prophylaxis Priority: Secondary Status: Acute (6) Acute on chronic renal insufficiency Priority: Primary Status: Acute - Discharge Medications Prescriptions: Metoprolol XL (24 HR) Succ [Toprol Xl] 12.5 mg PO DAILY #30 tab.er.24h Home Medications: Potassium Chloride 10 meq PO DAILY 06/12/15 [History] Chlorthalidone 25 mg PO DAILY 06/16/15 [History] Apixaban [Eliquis] 2.5 mg PO BID 08/11/16 [History] Acetaminophen [Tylenol] 1,000 mg PO BID PRN 11/13/16 [History] Clotrimazole 1% CRM [Lotrimin 1%] 1 appl TP BID 11/13/16 [History] Melatonin 5 mg PO HS 11/13/16 [History] Mupirocin [Bactroban Oint] 1 appl TP BID 11/13/16 [History] Ondansetron HCl [Zofran] 4 mg PO QID PRN 11/13/16 [History] Tramadol HCl [Ultram] 50 mg PO BID PRN 11/13/16 [History] Metoprolol XL (24 HR) Succ [Toprol Xl] 12.5 mg PO DAILY #30 tab.er.24h 11/16/16 [Rx] Allergies/Adverse Reactions: Allergies azithromycin [From Zithromax Z-Kimo] Allergy (Verified 11/13/16 12:44) See Comments UNKNOWN REACTION Sulfa (Sulfonamide Antibiotics) Allergy (Verified 11/13/16 12:44) See Comments UNKNOWN REACTION Date of admission: 11/14/16 12:52 Primary care physician: Rod Russell MD Consults: 11/15/16 15:11 Consult to Cardiology [CONS] Routine Comment: Consulting Provider: [facility] [place] Reason for Consult: Patient with hx of Afib, known, presented with epigastric pain and adynamic troponin leak, ECHO with multiple wall motion abnormalities and decreased systolic function. Kindly evaluate, thank you. Call Completed: No Discharging clinician: Kane Manzanares Anticipated date of discharge: 11/16/16 - Patient Status Disposition: Home Health Service Condition: Good Functional capacity at discharge: independent ambulation Overall status at discharge: patient is back to baseline - Discharge Instructions Follow Up With: Rod Russell MD [Primary Care Provider] - 11/20/16 11:00 am (Follow up with Michelle Garland CNP) - Diet and Activity Activity: resume usual activities as tolerated Diet: low salt diet Interval History: See below Hospital course: Ms. Canales is a 89 year old female with PMH of CHFrEF with EF 35-40%, Non- ischemic CMP, Afib with ICD , Seizure disorder, HTN She presented with complains of chest and epigastric discomfort and generalized weakness and was admitted for management of chest pain to rule out ACS, CHARLES on CKD Labs on admission was significant for hypokalemia with potassium of 2.9, CHARLES on CKD with slight decrease in GFR and increased creatinine above baseline Troponin was elevated at 0.08 and peaked at 0.11, EKG was paced She was managed with gentle IVF hydration, potassium replacement ECHO was repeated and showed EF 35-40%, global left ventricular systolic dysfucntion, indeterminate diastolic dysfuncton, severe LAE, moderately calcified aortic valves, moderate MR, global wall hypokinesis cardiology was consulted given her complains and lab and ECHO findings, it was recommended that troponin leak was possibly from CHARLES on CKD as well as demand ischemia Her Symptoms have improved remarkably , her CR is trending towards baseline I have held her lasix and continued Chlorthalidone, Toprol low dose has also been started due to her EF, other home medications have been resumed She is stable for discharge home to follow up with PCP and Cardiology Patient persistently refused Keppra which was her home medications for suspected seizures since 2013, I have also discontinued that on her home med list as patient insists her neurologist has discontinued the medication for over 3 months Home services will be reinstated Plan of care discussed, verbalized understanding. - Time Spent with Patient Total time spent providing and/or coordinating discharge services: Less than 30 minutes - Constitutional Vitals: Temp Pulse Resp BP Pulse Ox 98.3 F 72 16 137/81 97 11/16/16 08:10 11/16/16 08:10 11/16/16 08:10 11/16/16 08:10 11/16/16 08:10 General appearance: Present: A&O X 3, pleasant, no acute distress, answers questions appropriately - Head Head exam: Present: atraumatic, normocephalic - Eye Eye exam: Present: PERRL, conjuntiva pink, sclera anicteric Pupils: Present: PERRL - Neck Neck exam general surgery: Present: supple, trachea midline. Absent: lymphadenopathy - Respiratory Respiratory exam: Present: CTAB. Absent: accessory muscle use, rales, rhonchi, wheezes - Cardiovascular Cardiovascular exam: Present: irregular rhythm, +S1, +S2, systolic murmur. Absent: diastolic murmur, gallop, rubs Additional comments: ICD site clean and dry - GI/Abdominal GI/Abdominal exam: Present: normal bowel sounds, soft, no peritoneal signs. Absent: distended, tenderness - Extremities Exam Extremities exam: Present: warm, radial pulses palpable and symetrical. Absent : calf tenderness, cyanotic, pedal edema - Neurological Exam Neurological exam: Present: alert, CN II-XII intact, normal gait, oriented X3, no focal deficits. Absent: pronater drift, facial droop, speech deficit - Skin Skin exam: Present: dry, intact
[2016-11-16 11:52] VITALS: BP 143/81
== END 2016-11-16 14:30 | disposition home health service (06) | DRG 311 ==
LOC: 2ANU 12:42 → EMEROO 12:42 → SUATTDRO 14:44 → 2ANU 15:06
PROVIDERS: ADMIT Internal Medicine; ATTEND Internal Medicine

== ENCOUNTER 2016-11-22 11:49 | Observation (INO) ==
--- NOTE | 2016-11-22 12:19 | Emergency Department Note ---
Disposition Clinical Impression: Unresponsive state, Seizure disorder, Acute on chronic renal insufficiency Altered mental status Qualifiers: Altered mental status type: disorientation Qualified Code(s): R41.0 - Disorientation, unspecified Atrial fibrillation Qualifiers: Atrial fibrillation type: chronic Qualified Code(s): I48.2 - Chronic atrial fibrillation Disposition: Admitted As Inpatient Condition: Fair Time of Disposition: 13:32 Altered Mental Status HPI - General Chief Complaint: ED Altered Mental Status Stated Complaint: ams Time Seen by Provider: 11/22/16 11:49 Source: EMS Limitations: no limitations - History of Present Illness HPI Narrative: 82-year-old female presents with chief complaint of unresponsiveness. Patient was being attended by her home health nurse when she was noticed to be unresponsive for 2-3 minutes. She is drooling with her head down and sitting in a chair. Afterwards patient regained consciousness but was disoriented until EMS arrived. She did not have jerking, tonic-clonic activity or staring spells. It is unknown how long until patient became alert and oriented 3 however when patient arrived to the ER she was alert oriented 3. She states she does not remember any of the events stated before. Per history from EMS and patient she denies any falls, head trauma. Patient has a history of TIA, stroke or seizure that was evaluated in 2013 and she was put on Keppra. However at that time is undetermined if patient actually has a seizure or TIA. Furthermore patient does not recall if she had any tonic-clonic activity, staring spells at that time. Patient has discontinued Keppra for the last 2 months stating it makes her dizzy and she does not want to be on it. She was recently discharged on 11/16 for chest discomfort and epigastric pain where she was found to have a TIA on CKD and elevated troponin which was considered secondary to demand ischemia and CHARLES. Patient has a history of atrial fibrillation and is on our request. She denies any bleeding. When patient was discharged on November 16 she refused to be restarted on Keppra. - Related Data Home Medications Medication Instructions Recorded Confirmed Potassium Chloride 10 meq PO DAILY 06/12/15 11/13/16 Chlorthalidone 25 mg PO DAILY 06/16/15 11/13/16 Apixaban [Eliquis] 2.5 mg PO BID 08/11/16 11/13/16 Acetaminophen [Tylenol] 1,000 mg PO BID PRN 11/13/16 11/13/16 Clotrimazole 1% CRM [Lotrimin 1%] 1 appl TP BID 11/13/16 11/13/16 Melatonin 5 mg PO HS 11/13/16 11/13/16 Mupirocin [Bactroban Oint] 1 appl TP BID 11/13/16 11/13/16 Ondansetron HCl [Zofran] 4 mg PO QID PRN 11/13/16 11/13/16 Tramadol HCl [Ultram] 50 mg PO BID PRN 11/13/16 11/13/16 Previous Rx's Medication Instructions Recorded Metoprolol XL (24 HR) Succ [Toprol 12.5 mg PO DAILY #30 tab.er.24h 11/16/16 Xl] Allergies Allergy/AdvReac Type Severity Reaction Status Date / Time azithromycin Allergy See Verified 11/13/16 12:44 [From Zithromax Z-Kimo] Comments Sulfa (Sulfonamide Allergy See Verified 11/13/16 12:44 Antibiotics) Comments Review of Systems: ROS: Constitutional: Denies fevers chills HEENT: Denies blurry vision, headache, sore throat, rhinorrhea Heart: Denies chest pain, palpitations, diaphoresis Lungs: Denies shortness of breath, cough Abdomen: Denies abdominal pain, nausea, vomiting : Denies dysuria, Extremeties: Denies leg cramps, swelling Neuro: Denies numbness and tingling All systems ED: reviewed and negative except as stated. Past Medical History - Past Medical History Medical history: Reports: atrial fibrillation, CHF, renal disease, seizures, TIA Surgical history: Reports: non-contributory, thyroidectomy Psychiatric history: Reports: anxiety RADIO COMMUNICATIONS SUPERINTENDENT history: Reports: no RADIO COMMUNICATIONS SUPERINTENDENT history, other - Social History Smoking Status: Never smoker Smokeless Tobacco Status: No Alcohol use: Reports: none Drug use: Reports: none Physical Exam General: Alert and oriented to place, time, self HEENT: Head normocephalic, atraumatic, EOMI, PERRLA, neck without lymphadenopathy, and no tenderness to palpation, absent JVD, moist mucous membranes Heart: Regular rate and irregular rhythm. Lungs: Clear to auscultation bilaterally Abdomen: Soft nontender nondistended with positive bowel sounds Extremities: Normal capillary refill, absent pedal edema back: No tenderness to palpation Neuro: Cranial 2 through 12 intact, upper and lower extremity strength 5 out of 5, bilateral sensation intact, alert oriented to place time situation. - General Limitations: no limitations General appearance: alert Course Course Narrative: We will order CT of the head without contrast, CBC, BMP, urinalysis, troponin, chest x-ray. This patient has history history of atrial fibrillation, seizures , TIA she will need to be most likely admitted for evaluation of her unresponsiveness. - Reevaluation(s) Reevaluation #1: CT had without contrast negative for acute changes, chest x-ray negative, troponin within normal limits, no abnormalities on CBC, BMP shows a serum creatinine 1.61 which is baseline for the patient, patient is still alert oriented 3. Patient states she does not know why she has a pacemaker, being from previous visits patient has a AICD for her atrial fibrillation. Time: 13:03 - Consultations Consultation #1: Discusssed with Dr. Pagan, rj. Time: 13:32 Vital Signs Temperature 98 F 11/22/16 11:50 Pulse Rate 72 11/22/16 11:50 Respiratory Rate 18 11/22/16 11:50 Blood Pressure 156/102 11/22/16 11:50 O2 Sat by Pulse Oximetry 96 11/22/16 11:50 Temperature 98 F 11/22/16 11:50 Pulse Rate 77 11/22/16 13:39 Respiratory Rate 18 11/22/16 13:39 Blood Pressure 174/105 11/22/16 13:39 O2 Sat by Pulse Oximetry 99 11/22/16 13:39 Oxygen Delivery Oxygen Delivery Room Air Altered Mental Status - MDM Narrative Medical decision making narrative: Patient's unresponsive state with a possible postictal state is concerning for seizures. Furthermore she has a AICD and will need to be evaluated for any abnormal arrhythmias. Currently she is alert and oriented 3, CT head is negative, hemoglobin is stable, urinalysis pending. Will admit patient for further evaluation. - Medical Records Medical records reviewed: Yes I reviewed the patient's medical records. - Lab Data Lab results reviewed: Yes I reviewed the patient's lab results. Result diagrams: 11/22/16 12:28 11/22/16 12:28 Lab Results 11/22/16 11/22/16 11/22/16 Range/Units 12:28 12:28 12:28 WBC 6.1 (4.3-11.1) K/mcL RBC 3.79 L (3.82-4.97) M/mcL Hgb 11.4 L (11.5-15.4) g/dL Hct 35.6 (35.3-44.9) % MCV 93.9 (83.0-100.0) fL MCH 30.1 (28.0-33.3) pg MCHC 32.0 (31.6-35.5) g/dL RDW 13.5 (11.5-14.5) % Plt Count 161 (140-400) K/mcL MPV 10.4 (9.4-12.4) fL Immature Gran % 0.3 (0-4) % Seg Neutrophils % 74.8 % Lymphocytes % 15.0 % Monocytes % 7.9 % Eosinophils % 1.3 % Basophils % 0.7 % Neutrophils # 4.5 (1.6-8.9) K/mcL Lymphocytes # 0.9 (0.6-4.6) K/mcL Monocytes # 0.5 (0.0-1.3) K/mcL Eosinophils # 0.1 (0.0-0.6) K/mcL Basophils # 0.0 (0.0-0.2) K/mcL Sodium 141 (136-145) mEq/L Potassium 3.7 (3.5-4.5) mEq/L Chloride 111 H (98-109) mEq/L Carbon Dioxide 18 L (19-29) mEq/L BUN 39 H (7-20) mg/dL Creatinine 1.62 H (0.57-1.11) mg/dL Est GFR ( Amer) 36 L (> 60) Est GFR (Non-Af Amer) 30 L (> 60) BUN/Creatinine Ratio 24 (6-26) Glucose 95 (70-99) mg/dL Calculated Osmolality 301 H (280-300) Calcium 9.5 (8.6-10.8) mg/dL Troponin I 0.03 (0-0.03) ng/mL Urine Color (Yellow) Urine Clarity (Clear) Urine pH (5.0-8.0) pH Units Ur Specific [place] (1.010-1.025) Urine Protein (Neg-Trace) mg/dL Urine Glucose (UA) (Normal) mg/dL Urine Ketones (Negative) mg/dL Urine Blood (Negative) Urine Nitrite (Negative) Urine Bilirubin (Negative) Urine Urobilinogen (Normal) mg/dL Ur Leukocyte Esterase (Negative) Urine Microscopic RBC (0-3) per hpf Urine Microscopic WBC (0-3) per hpf Ur Squamous Epith Cells (None-Few) per lpf Urine Bacteria (None-Few) per hpf Hyaline Casts (None-Few) per lpf Ur Culture Indicated? (NO) 11/22/16 Range/Units 13:29 WBC (4.3-11.1) K/mcL RBC (3.82-4.97) M/mcL Hgb (11.5-15.4) g/dL Hct (35.3-44.9) % MCV (83.0-100.0) fL MCH (28.0-33.3) pg MCHC (31.6-35.5) g/dL RDW (11.5-14.5) % Plt Count (140-400) K/mcL MPV (9.4-12.4) fL Immature Gran % (0-4) % Seg Neutrophils % % Lymphocytes % % Monocytes % % Eosinophils % % Basophils % % Neutrophils # (1.6-8.9) K/mcL Lymphocytes # (0.6-4.6) K/mcL Monocytes # (0.0-1.3) K/mcL Eosinophils # (0.0-0.6) K/mcL Basophils # (0.0-0.2) K/mcL Sodium (136-145) mEq/L Potassium (3.5-4.5) mEq/L Chloride (98-109) mEq/L Carbon Dioxide (19-29) mEq/L BUN (7-20) mg/dL Creatinine (0.57-1.11) mg/dL Est GFR ( Amer) (> 60) Est GFR (Non-Af Amer) (> 60) BUN/Creatinine Ratio (6-26) Glucose (70-99) mg/dL Calculated Osmolality (280-300) Calcium (8.6-10.8) mg/dL Troponin I (0-0.03) ng/mL Urine Color Yellow (Yellow) Urine Clarity Clear (Clear) Urine pH 6.0 (5.0-8.0) pH Units Ur Specific [place] 1.015 (1.010-1.025) Urine Protein Trace (Neg-Trace) mg/dL Urine Glucose (UA) Normal (Normal) mg/dL Urine Ketones Negative (Negative) mg/dL Urine Blood Negative (Negative) Urine Nitrite Negative (Negative) Urine Bilirubin Negative (Negative) Urine Urobilinogen Normal (Normal) mg/dL Ur Leukocyte Esterase Small H (Negative) Urine Microscopic RBC 0-3 (0-3) per hpf Urine Microscopic WBC 3-5 H (0-3) per hpf Ur Squamous Epith Cells Many H (None-Few) per lpf Urine Bacteria None Seen (None-Few) per hpf Hyaline Casts None Seen (None-Few) per lpf Ur Culture Indicated? YES A (NO) - Radiology Data Radiology results reviewed: Yes I reviewed the patient's radiology results. - EKG Data EKG attestation: Yes I reviewed and interpreted this EKG. EKG results narrative: Ventricular Paced rhythm, with PVC, absent ST-T wave elevation, rate 70. TPA Checklist - LKW: 3-4.5 hrs Add. Contraindications Patient/family understanding: The patient/family members have been counseled and understood the risk, benefit , and alternatives of treatment. Attestation Statement - Attestation Attestation: I examined this patient and my medical decision-making was reviewed with the VENTILATED RIB FITTER/PA/Advanced Practice Nurse/Resident Physician. I agree with the documented findings, disposition and treatment plan as described except to the extent set forth below. I had face to face time with the patient. 89-year-old with a 2-3 minute episode of which she became unresponsive head fell forward and she drooled. This was witnessed by home health care. Patient had a similar episode a couple years ago and is a question whether this was related to seizures or not. Home health did not report any tonic-clonic movement. Patient had been on Keppra and it was stopped a couple months ago. Patient states that she will not go back on Keppra due to the side effects. Skull examination the patient is awake and alert neuro is intact. CT of the head was negative lab work is essentially negative. I did speak to Dr. Pagan who will admit the patient. NIH Stroke Scale - Level of Consciousness LOC: Alert - LOC Questions LOC Questions: Answers both correctly - LOC Commands LOC Commands: Performs both correctly - Best Gaze Best Gaze: Normal - Visual Visual: No visual loss - Facial Palsy Facial Palsy: Normal - Motor Arms Motor Arm-Left: No drift for 10 seconds Motor Arm-Right: No drift for 10 seconds - Motor Legs Motor Leg-Left: No drift for 5 seconds Motor Leg-Right: No drift for 5 seconds - Limb Ataxia Limb Ataxia: Normal, No Ataxia - Sensory Sensory: Normal - Best Language Best Language: No aphasia - Dysarthria Dysarthria: Normal - Extinction and Inattention Extinction and Inattention: Normal - NIHSS Total Score NIHSS Total Score: 0
[2016-11-22 12:38] LABS: Basophils % 0.7 %; Eosinophils # 0.1 K/mcL (0.0-0.6); Eosinophils % 1.3 %; Hematocrit 35.6 % (35.3-44.9); Hemoglobin 11.4 g/dL (11.5-15.4); Immature Granulocytes % 0.3 % (0-4); Lymphocytes # 0.9 K/mcL (0.6-4.6); Mean Corpuscular Hemoglobin 30.1 pg (28.0-33.3); Mean Corpuscular Volume 93.9 fL (83.0-100.0); Mean Platelet Volume 10.4 fL (9.4-12.4); Monocytes # 0.5 K/mcL (0.0-1.3); Monocytes % 7.9 %; Neutrophils # 4.5 K/mcL (1.6-8.9); Platelet Count 161 K/mcL (140-400); Red Blood Count 3.79 M/mcL (3.82-4.97); Red Cell Distribution Width 13.5 % (11.5-14.5); Segmented Neutrophils % 74.8 %
[2016-11-22 12:51] LABS: Calcium 9.5 mg/dL (8.6-10.8); Potassium 3.7 mEq/L (3.5-4.5)
[2016-11-22] MEDS ORDERED: Ondansetron ODT 4 MG TAB.RAPDIS SL PRN (13:32)
[2016-11-22] MEDS ORDERED: Naloxone 0.4 MG/ML INJ IVP PRN (13:32)
[2016-11-22 13:38] LABS: Bilirubin,Urine Negative (Negative); Blood,Urine Negative (Negative); Clarity,Urine Clear (Clear); Color,Urine Yellow (Yellow); Glucose,Urine (UA) Normal (Normal); Ketones,Urine Negative (Negative); Leukocyte Esterase,Urine Small (Negative); Nitrite,Urine Negative (Negative); Protein,Urine Trace mg/dL (Neg-Trace); Specific Gravity,Urine 1.015 (1.010-1.025); Urobilinogen,Urine Normal (Normal)
[2016-11-22 13:39] LABS: Bacteria,Urine None Seen per hpf (None-Few); Hyaline Casts,Urine None Seen per lpf (None-Few); RBC,Urine 0-3 per hpf (0-3); Squamous Epithelial Cell,Urine Many per lpf (None-Few)
--- NOTE | 2016-11-22 14:01 | Internal Med History&Physical ---
<Finch,Elena J - Last Filed: 11/22/16 15:17> Date of Encounter: 11/22/16 Time of Encounter: 13:59 Assessment and Plan (1) Syncope Current visit: Yes Status: Acute on day of admission with 2-3 minute unresponsive episode. Patient does not remember episode; does not recall being light headed or dizzy. No evidence of bitting tongue, no bladder incont. ED head CT non-acute. TTE 11/14/2016 with no cardiac source. Etiology unknown at this time. She does have hx TIA and seizure disorder (self discontinued AEDs 2 months ago). Check orthostatics, EEG, carotids, Neurology consulted. Qualifiers: Syncope type: unspecified Qualified Code(s): R55 - Syncope and collapse (2) Seizure disorder Current visit: Yes Status: Chronic diagnosed in 2013 and was placed on Keppra at that time. Self discontinued 2 months prior to admission due to side effects. Now with syncopal episode. No reported seizure activity. EEG pending. Consult Neurology (3) Atrial fibrillation Current visit: Yes Status: Chronic per hx. Rate controlled. Cont home BB, eliquis Qualifiers: Atrial fibrillation type: chronic Qualified Code(s): I48.2 - Chronic atrial fibrillation (4) Hypertension Current visit: Yes Status: Acute uncontrolled in ED with SBPs 150-170s. Stop home chlorthaildone with stage 3 CKD. Cont home BB. Monitor BP, may need to increase. Monitor BP and titrate PRN Qualifiers: Hypertension type: essential hypertension Qualified Code(s): I10 - Essential (primary) hypertension (5) CKD (chronic kidney disease) Current visit: No Status: Acute per hx. Cr 1.6 on admission (baseline from 1.9-3.0 per chart review) Qualifiers: Chronic kidney disease stage: stage 3 (moderate) Qualified Code(s): N18.3 - Chronic kidney disease, stage 3 (moderate) (6) Non-ischemic cardiomyopathy Current visit: No Status: Acute with ICD. 11/14/2016 TTE with EF 35-40%. Appears compensated. Chlorthaliodne stopped with CKD as likely not diuresing with low GFR. Monitor fluid status. Will need reassess need for diuretic (7) DVT prophylaxis Current visit: Yes Status: Acute [facility] Internal Medicine - H&P: HPI Chief complaint: "I guess I blacked out" Admitted From: Home Plans for Post Hospital Care: Home History of present illness: Ms. Canales is a 89 year old female with PMH how presented to [facility] on 11/22/2016 after an unresponsive episode at home. She was admitted for further work-up and treatment. Information obtained from chart review and patient report although patient does not know or remember what happened. Per ED notes, patient was at home sitting in chair when she had a 2-3 minute unresponsive episode. Her [facility] aide was there and witnessed the event. No reported shaking or jerking noted. The [facility] aide is not at bedside so unable to obtain details. On my exam she says she feels fine, she actually has no complaints. She specifically denies no vision changes, no evidence of bitting tongue, no loss of bowel/bladder incont, CP, no SOB, no ABD pain Past Med Surg Social Fam HX - Past Medical History Medical history: atrial fibrillation, CHF, renal disease, seizures, TIA Psychiatric history: anxiety - Past Surgical History Surgical History: thyroidectomy - Social History Smoking Status: Never smoker Smokeless Tobacco Status: No Alcohol use: none Drug use: none - Additional Family History Additional family history: reviewed and non-contributory Internal Medicine - H&P: Meds Potassium Chloride 10 meq PO DAILY 06/12/15 [History] Chlorthalidone 25 mg PO DAILY 06/16/15 [History] Apixaban [Eliquis] 2.5 mg PO BID 08/11/16 [History] Acetaminophen [Tylenol] 1,000 mg PO BID PRN 11/13/16 [History] Clotrimazole 1% CRM [Lotrimin 1%] 1 appl TP BID 11/13/16 [History] Melatonin 5 mg PO HS 11/13/16 [History] Mupirocin [Bactroban Oint] 1 appl TP BID 11/13/16 [History] Metoprolol XL (24 HR) Succ [Toprol Xl] 12.5 mg PO DAILY #30 tab.er.24h 11/16/16 [Rx] Cholecalciferol (D-3) [Vitamin D] 1,000 unit PO DAILY 11/22/16 [History] Cyanocobalamin (Vitamin B-12) [Vitamin B12] 1,000 mcg PO DAILY 04/26/17 [History ] Allergies azithromycin [From Zithromax Z-Kimo] Allergy (Verified 11/13/16 12:44) See Comments UNKNOWN REACTION Sulfa (Sulfonamide Antibiotics) Allergy (Verified 11/13/16 12:44) See Comments UNKNOWN REACTION All Systems PM: A 10-system review of systems was performed and is negative for pertinent findings except as documented above in the HPI. - Constitutional Constitutional: no chills, no fever(s), no night sweats - EENT Eyes: no change in vision, no discharge, no pain, no photophobia Ears: no ear discharge, no ear pain, no tinnitus Nose, mouth and throat: no dysphagia, no nasal discharge, no neck pain, no sore throat - Cardiovascular Cardiovascular ROS IM: no chest pain, no diaphoresis, no dyspnea, no lightheadedness, no palpitations, no syncope - Respiratory Respiratory: no cough, no dyspnea, no wheezing, no excessive phlegm production - Gastrointestinal Gastrointestinal: no abdominal pain, no diarrhea, no hematemesis, no hematochezia, no melena, no nausea, no vomiting - Genitourinary Genitourinary: no change in urinary stream, no dysuria, no flank pain, no hematuria - Musculoskeletal Musculoskeletal ROS IM: no numbness, no tingling - Integumentary Integumentary IM: no rash, no unusual bruising - Neurological Neurological ROS: no confusion, no convulsions, no focal weakness, no numbness, no tingling, no tremor(s) - Hematologic/Lymphatic Hematologic/Lymphatic: no easy bruising - Constitutional Vitals: Temp Pulse Resp BP Pulse Ox 98 F 77 18 174/105 99 11/22/16 11:50 11/22/16 13:39 11/22/16 13:39 11/22/16 13:39 11/22/16 13:39 - Head Head exam: Present: atraumatic, normocephalic - Eye Eye exam: Present: PERRL, conjuntiva pink, sclera anicteric Pupils: Present: PERRL - Neck Neck exam general surgery: Present: supple, trachea midline. Absent: lymphadenopathy - Respiratory Respiratory exam: Present: CTAB. Absent: accessory muscle use, rales, rhonchi, wheezes - Cardiovascular Cardiovascular exam: Present: irregular rhythm, +S1, +S2. Absent: diastolic murmur, gallop, rubs, systolic murmur Additional comments: PPM/ICD to left chest - GI/Abdominal GI/Abdominal exam: Present: normal bowel sounds, soft, no peritoneal signs. Absent: distended, tenderness - Extremities Exam Extremities exam: Present: warm, radial pulses palpable and symetrical. Absent : calf tenderness, cyanotic, pedal edema - Neurological Exam Neurological exam: Present: CN II-XII intact, oriented X3, no focal deficits. Absent: pronater drift, facial droop, speech deficit - Skin Skin exam: Present: dry, intact Internal Med - H&P Results - Labs CBC & Chem 7: 11/22/16 12:28 11/22/16 12:28 Labs: Short CBC 11/22/16 Range/Units 12:28 WBC 6.1 (4.3-11.1) K/mcL Hgb 11.4 L (11.5-15.4) g/dL Hct 35.6 (35.3-44.9) % Plt Count 161 (140-400) K/mcL Neutrophils # 4.5 (1.6-8.9) K/mcL BMP 11/22/16 12:28 Sodium 141 Potassium 3.7 Chloride 111 H Carbon Dioxide 18 L BUN 39 H Creatinine 1.62 H Glucose 95 Calcium 9.5 Cardiac Enzymes 11/22/16 Range/Units 12:28 Troponin I 0.03 (0-0.03) ng/mL Urine 11/22/16 Range/Units 13:29 Urine Color Yellow (Yellow) Urine Clarity Clear (Clear) Urine pH 6.0 (5.0-8.0) pH Units Ur Specific [place] 1.015 (1.010-1.025) Urine Protein Trace (Neg-Trace) mg/dL Urine Glucose (UA) Normal (Normal) mg/dL - Impressions ITS Impressions Chest X-Ray 11/22/16 12:08 IMPRESSION: Stable cardiomegaly with no acute abnormality. D/ / 11/22/2016 12:26:22 Kali Esparza MD / kishan Interpreting Provider: Kali Esparza MD Head CT 11/22/16 12:08 IMPRESSION: 1. No acute intracranial abnormality. D/ / Alfonzo Wilkins MD / Alfonzo Wilkins MD Interpreting Provider: Alfonzo Wilkins MD <Sergo Pagan - Last Filed: 11/22/16 17:44> Date of Encounter: 11/22/16 Time of Encounter: 17:00 Internal Medicine - H&P: HPI History of present illness: Ms. Canales is a 89 year old female Past Med Surg Social Fam HX - Family History Mother Name: Denise Car Living Status: Age at : 87 Cause of : cancer Hx Family Cancer: Yes All Systems PM: A 10-system review of systems was performed and is negative for pertinent findings except as documented above in the HPI. - Constitutional Vitals: Temp Pulse Resp BP Pulse Ox 98.2 F 72 16 159/74 96 11/22/16 15:05 11/22/16 15:05 11/22/16 15:05 11/22/16 15:05 11/22/16 15:05 Internal Med - H&P Results - Labs CBC & Chem 7: 11/22/16 12:28 11/22/16 12:28 Labs: Urine 11/22/16 Range/Units 16:45 Urine Color Yellow (Yellow) Urine Clarity Clear (Clear) Urine pH 6.5 (5.0-8.0) pH Units Ur Specific [place] 1.015 (1.010-1.025) Urine Protein Negative (Neg-Trace) mg/dL Urine Glucose (UA) Normal (Normal) mg/dL - Attending Attestation I examined this patient and my medical decision-making was reviewed with the nurse practitioner. I agree with the documented history of present illness, review of systems, past medical, surgical social and family histories and examination findings, disposition and treatment plan as described above except to any changes set forth below. 89-year-old female patient with history of atrial fibrillation, congestive heart failure, prior TIA was brought in via EMS after she was found to have altered mental status by home health aide. Patient herself does not remember any of this episode but remembers being brought in to the EMS van. She began to recognize people soon but had trouble remembering the date and time. By the time she came to the ER, she was back to baseline. She does not recollect how long her episode lasted. According to the ED records, there was no bowel or bladder incontinence. No tonic-clonic activity noted. Patient had been treated for similar symptoms in 2013. At that time she was started on Keppra due to her symptoms for possible seizures although her EEG was negative. She had quit taking Keppra 2 months back due to increased somnolence and instability. She did not have any such episodes while she was on Keppra. Currently she denies any focal weakness or numbness. She feels like she is back to her baseline. CT of the head was negative. On examination patient is awake alert and oriented 3. Heart and lung examination is within normal limits. Neurologic examination shows normal cranial nerves with no focal deficits. Normal strength and sensation. Syncope/unresponsive state: This is although this has now resolved, will observe overnight in hospital and consult neurology for recommendations. Monitor telemetry. We will workup with EEG, carotid Dopplers. Patient did have a 2-D echocardiogram recently and she was admitted for chest pain. For A. fib, patient will continue her usual home medications For rate control and Eliquis. Patient also has chronic kidney disease stage III and renal function is at baseline. Essential hypertension: Blood pressure is uncontrolled. We will monitor blood pressure. Adjust antihypertensive regimen accordingly. Given her chronic kidney disease, will hold chlorthalidone.
--- NOTE | 2016-11-22 16:02 | Neurology - Consult Note ---
Date of Encounter: 11/22/16 Time of Encounter: 15:58 Assessment and Plan (1) Unresponsive state Current Visit: Yes Status: Acute At this juncture I am not absolute certain of what to make of the episodes that she has been experiencing. I would not expect a partial seizure to result in this type of unresponsiveness. And she does not seem to be having generalized tonic-clonic seizures. However since being on the Keppra she has not had any of the episodes. But she refuses to be restarted on Keppra or Dilantin. I would like to start her on Zonegran 100mg at hs. it is a good antiepileptic in works well for multiple seizure types. EEG is yet pending. I am not convinced that MRI is again necessary. I believe she is also had multiple cardiac workups. I will reassess her tomorrow. The documentation in the history of HPI and plan were at least partially created by [employer] voice recognition technology by Dr. Figueroa. Errors in grammar, wording or other phrases may exist. If errors are found after the documentation signed, they will be addressed individually in the addendum section of this document when appropriate. History of Present Illness HPI: Ms. Canales is a 89 year old female who is being seen for neurologic examination secondary to an unexplained episode of decreased level of consciousness. She has had multiple admissions and assessments for this complaint. Ultimately back in 2013 she was seen and evaluated by Dr. Sabillon who decided to try her on seizure medications. She was started on Keppra and hasn't had an episode since 2013. However she discontinued the medication on her own 2 months ago citing that it was "too strong and made her feel off balance. And today while in her apartment apparently she was found by her caregiver and sitting in a chair with decreased levels of consciousness. She was difficult to arouse. However she did not bite her tongue, she did not lose bladder or bowel continence. A CT scan of the brain revealed no acute changes. She has had previous MRI scan of the brain and EEGs which were negative for seizure activity then. She states that she will absolutely not consider going back on the Keppra. She was on Dilantin at some point in time and states that she will not consider Dilantin either. At the moment however she seems to be very lucid she gives a good history she is very tentative as not at all encephalopathic. She is actually very pleasant. Past Med Surg Social Fam HX - Past Medical History Medical history: atrial fibrillation, CHF, renal disease, seizures, TIA Psychiatric history: anxiety - Past Surgical History Surgical History: thyroidectomy - Social History Smoking Status: Never smoker Smokeless Tobacco Status: No Alcohol use: none Drug use: none Medications and Allergies Potassium Chloride 10 meq PO DAILY 06/12/15 [History] Chlorthalidone 25 mg PO DAILY 06/16/15 [History] Apixaban [Eliquis] 2.5 mg PO BID 08/11/16 [History] Acetaminophen [Tylenol] 1,000 mg PO BID PRN 11/13/16 [History] Clotrimazole 1% CRM [Lotrimin 1%] 1 appl TP BID 11/13/16 [History] Melatonin 5 mg PO HS 11/13/16 [History] Mupirocin [Bactroban Oint] 1 appl TP BID 11/13/16 [History] Metoprolol XL (24 HR) Succ [Toprol Xl] 12.5 mg PO DAILY #30 tab.er.24h 11/16/16 [Rx] Cholecalciferol (D-3) [Vitamin D] 1,000 unit PO DAILY 11/22/16 [History] Cyanocobalamin (Vitamin B-12) [Vitamin B12] 1,000 mcg PO DAILY 11/22/16 [History ] Allergies azithromycin [From Zithromax Z-Kimo] Allergy (Verified 11/13/16 12:44) See Comments UNKNOWN REACTION Sulfa (Sulfonamide Antibiotics) Allergy (Verified 11/13/16 12:44) See Comments UNKNOWN REACTION All Systems: A 10-system review of systems was performed and is negative for pertinent findings except as documented above in the HPI. Review of Systems: 10 point review of systems is consistent with a history of present illness and otherwise negative. Physical Examination - Vital Signs Vital Signs: Initial Vital Signs Temp Pulse Resp BP Pulse Ox 98 F 72 18 156/102 96 11/22/16 11:50 11/22/16 11:50 11/22/16 11:50 11/22/16 11:50 11/22/16 11:50 - Constitutional General appearance: comfortable - Neurologic Detailed motor examination: full strength in all major muscle groups (No involuntary movements or atrophy are present.) Detailed sensory examination: other (Light touch and deep touch are globally intact.) Reflexes: Biceps: 2+, Triceps: 1+, Brachioradialis: 2+, Patella: 1+, Achilles: 0 Mental Status Examination: awake, alert, oriented to person, oriented to place, oriented to time, follows commands appropriately, answers questions appropriately, no agnosia, no aphasia, no aproxia Cranial nerve examination: PERRL, EOMI, visual ignacio intact, corneal reflexes brisk symmetrically, sensory to face intact, mastication intact, no facial asymmetry is present, no dysarthria, hearing is intact symmetrically, soft palate elevates bilaterally upon phonation, gag reflex intact, flexes SCM and trapezius muscles symmetrically with full power, tongue protrudes midline, no atrophy or facial fasiculations present Cerebellar examination: no dysmetria, performs finger to nose and heel to yeung symmetrically without ataxia, no gait ataxia, no truncal ataxia, no difficulty with rapid alternating movements Results - Laboratory Findings CBC and BMP: 11/22/16 12:28 11/22/16 12:28 Abnormal lab findings: Abnormal lab results RBC 3.79 M/mcL (3.82-4.97) L 11/22/16 12:28 Hgb 11.4 g/dL (11.5-15.4) L 11/22/16 12:28 Chloride 111 mEq/L (98-109) H 11/22/16 12:28 Carbon Dioxide 18 mEq/L (19-29) L 11/22/16 12:28 BUN 39 mg/dL (7-20) H 11/22/16 12:28 Creatinine 1.62 mg/dL (0.57-1.11) H 11/22/16 12:28 Est GFR ( Amer) 36 (> 60) L 11/22/16 12:28 Est GFR (Non-Af Amer) 30 (> 60) L 11/22/16 12:28 Calculated Osmolality 301 (280-300) H 11/22/16 12:28 Ur Leukocyte Esterase Small (Negative) H 11/22/16 13:29 Urine Microscopic WBC 3-5 per hpf (0-3) H 11/22/16 13:29 Ur Squamous Epith Cells Many per lpf (None-Few) H 11/22/16 13:29 Ur Culture Indicated? YES (NO) A 11/22/16 13:29 Consult Discharge Plan - Plan Referrals: Rod Russell MD [Primary Care Provider] -
[2016-11-22] MEDS: Metoprolol XL (24 HR) Succ 25 MG TAB.ER.24H PO SCH (16:54)
[2016-11-22 17:01] LABS: Bilirubin,Urine Negative (Negative); Blood,Urine Negative (Negative); Clarity,Urine Clear (Clear); Color,Urine Yellow (Yellow); Glucose,Urine (UA) Normal (Normal); Ketones,Urine Negative (Negative); Leukocyte Esterase,Urine Small (Negative); Nitrite,Urine Negative (Negative); PH,Urine 6.5 pH Units (5.0-8.0); Protein,Urine Negative (Neg-Trace); Specific Gravity,Urine 1.015 (1.010-1.025); Urobilinogen,Urine Normal (Normal)
[2016-11-22 17:02] LABS: Bacteria,Urine None Seen per hpf (None-Few); Hyaline Casts,Urine None Seen per lpf (None-Few); RBC,Urine 0-3 per hpf (0-3); Squamous Epithelial Cell,Urine Moderate per lpf (None-Few); WBC,Urine 0-3 per hpf (0-3)
[2016-11-22] MEDS: APIXABAN 2.5 MG TABLET PO SCH (19:58)
[2016-11-22] MEDS ORDERED: Acetaminophen 325 MG TABLET PO PRN (22:14)
[2016-11-23 04:49] LABS: Basophils % 0.7 %; Eosinophils # 0.1 K/mcL (0.0-0.6); Eosinophils % 1.8 %; Hematocrit 32.9 % (35.3-44.9); Hemoglobin 10.9 g/dL (11.5-15.4); Immature Granulocytes % 0.5 % (0-4); Lymphocytes # 1.3 K/mcL (0.6-4.6); Lymphocytes % 22.8 %; Mean Corpuscular HGB Conc 33.1 g/dL (31.6-35.5); Mean Corpuscular Hemoglobin 30.2 pg (28.0-33.3); Mean Corpuscular Volume 91.1 fL (83.0-100.0); Mean Platelet Volume 10.2 fL (9.4-12.4); Monocytes # 0.5 K/mcL (0.0-1.3); Monocytes % 9.3 %; Neutrophils # 3.6 K/mcL (1.6-8.9); Platelet Count 162 K/mcL (140-400); Red Blood Count 3.61 M/mcL (3.82-4.97); Red Cell Distribution Width 13.5 % (11.5-14.5); Segmented Neutrophils % 64.9 %
[2016-11-23 05:06] LABS: Albumin 3.4 g/dL (3.5-5.0); Albumin/Globulin Ratio 1.1 (1.1-2.2); Alkaline Phosphatase 47 Units/L (38-126); Aspartate Amino Transferase 16 Units/L (5-34); BUN/Creatinine Ratio 21 (6-26); Bilirubin,Total 1.4 mg/dL (0.2-1.2); Blood Urea Nitrogen 33 mg/dL (7-20); Calcium 9.4 mg/dL (8.6-10.8); Carbon Dioxide 20 mEq/L (19-29); Chloride 111 mEq/L (98-109); Globulin 3.1 g/dL (2.4-3.5); Glucose 90 mg/dL (70-99); Osmolality,Calculated 297 (280-300); Potassium 3.7 mEq/L (3.5-4.5); Sodium 140 mEq/L (136-145); Total Protein 6.5 g/dL (6.0-8.3); eGFR For African Americans 38 (> 60); eGFR For Non-African Americans 31 (> 60)
[2016-11-23 05:07] LABS: Alanine Aminotransferase < 6 Units/L (0-55)
--- NOTE | 2016-11-23 08:19 | Neurology Progress Note ---
<Kraig Monge - Last Filed: 11/23/16 09:02> Date of Encounter: 11/23/16 Time of Encounter: 08:19 Assessment and Plan (1) Syncope Current Visit: Yes Status: Acute Patient never had this symptom before, previous echo from 11/15/2016 showed left ventricle ejection fraction 35-40%, global left ventricular systolic dysfunction, indeterminate diastolic function, extremely severe enlargement of the left atrium, moderately calcified aortic valve leaflets, severely thickened , rheumatic appearing mitral valve leaflets with reduced excursion, moderate mitral regurgitation and mild mitral stenosis/worsened severity of mitral stenosis, further questioning patient states that she had a strep throat infection 10 years ago with high fever, suspecting rheumatic heart disease, also patient has a history of a nonischemic cardiomyopathy status post AICD and atrial fibrillation on Eliquis, suspecting her syncopal episode is secondary to cardiovascular, patient had corrected QT prolongation more than 480 on previous EKG, recommend device check of her pacemaker and possible cardiology consultation, also recommend checking orthostatic vital sign since she was recently started on Toprol XL on top of diuretic medication and further syncopal workup, from neurology side, unlikely seizure activity however we will check EEG today and will make further recommendation after reviewing the test result. Qualifiers: Syncope type: unspecified Qualified Code(s): R55 - Syncope and collapse Subjective Principal diagnosis: Syncope Interval history: Patient seen and examined. Patient states that no more episode of syncope since the last time prior to this hospital admission, denies focal neurological symptoms such as slurred speech, facial droop, tingling/numbness/weakness of upper or lower extremities, patient states that she had a history of strep throat infection 10 years ago along with fever. Objective - Constitutional Vitals: Temp Pulse Resp BP Pulse Ox 97.8 F 74 16 137/80 93 11/23/16 06:55 11/23/16 06:55 11/23/16 06:55 11/23/16 06:55 11/23/16 06:55 General appearance: Present: cooperative, A&O X 3, pleasant, no acute distress, thin, answers questions appropriately - Head Head exam: Present: atraumatic, normal inspection, normocephalic - Eye Eye exam: Present: EOMI, normal appearance, PERRL - Extremities Exam Extremities exam: Present: normal capillary refill, normal inspection, warm, radial pulses palpable and symetrical. Absent: calf tenderness, pedal edema, tenderness - Neurological Exam Sensorimotor examination: Present: intact Motor Examination: Present: grossly full strength in all extremities, full strength in all major muscle groups Sensation intact: Present: intact, other (Light touch and deep touch are globally intact.) Reflex and gait examination: intact Reflexes: Biceps: 2+, Triceps: 2+, Brachioradialis: 2+, Patella: 2+, Achilles: 2 + Mental Status Examination: Present: awake, alert, oriented to person, oriented to place, oriented to time, follows commands appropriately, answers questions appropriately, no agnosia, no aphasia, no aproxia Cranial nerve examination: Present: PERRL, EOMI, visual ignacio intact, sensory to face intact, mastication intact, no facial asymmetry is present, no dysarthria, hearing is intact symmetrically, soft palate elevates bilaterally upon phonation, tongue protrudes midline, no atrophy or facial fasiculations present Cerebellar examination: Present: no dysmetria, no truncal ataxia, no difficulty with rapid alternating movements Results - Laboratory Findings CBC and BMP: 11/23/16 04:29 11/23/16 04:29 Abnormal lab findings: Abnormal lab results RBC 3.61 M/mcL (3.82-4.97) L 11/23/16 04:29 Hgb 10.9 g/dL (11.5-15.4) L 11/23/16 04:29 Hct 32.9 % (35.3-44.9) L 11/23/16 04:29 Chloride 111 mEq/L (98-109) H 11/23/16 04:29 BUN 33 mg/dL (7-20) H 11/23/16 04:29 Creatinine 1.57 mg/dL (0.57-1.11) H 11/23/16 04:29 Est GFR ( Amer) 38 (> 60) L 11/23/16 04:29 Est GFR (Non-Af Amer) 31 (> 60) L 11/23/16 04:29 Total Bilirubin 1.4 mg/dL (0.2-1.2) H 11/23/16 04:29 Albumin 3.4 g/dL (3.5-5.0) L 11/23/16 04:29 Ur Leukocyte Esterase Small (Negative) H 11/22/16 16:45 Ur Squamous Epith Cells Moderate per lpf (None-Few) H 11/22/16 16:45 Ur Culture Indicated? YES (NO) A 11/22/16 13:29 Consult Discharge Plan - Plan Referrals: Natasha Garland CNP [Advanced Practice Nurse] - 11/28/16 11:00 am <Palmer Figueroa - Last Filed: 11/23/16 14:04> Date of Encounter: 11/23/16 Time of Encounter: 13:59 Assessment and Plan (1) Unresponsive state Current Visit: Yes Status: Acute (2) Syncope Current Visit: Yes Status: Acute As stated above, I believe that the likelihood of a cardiogenic etiology for her episodic loss of consciousness is probably high. The EEG was normal. However the EKG rhythm strip revealed a very small polyphasic low voltage QRS complex. However it is suspicious that she been on the Keppra for 2 years without than event and subsequently has another one after she discontinued it on her own. For safe keeping I will simply keep her on Zonegran 100 mg at bedtime and will follow up with her my office as an outpatient for further titration. I will reevaluate her at your request. Qualifiers: Syncope type: unspecified Qualified Code(s): R55 - Syncope and collapse Subjective Interval history: The chart was reviewed, the patient was seen and examined. I agree with the resident's statement as above. I did review the EEG which was normal. However the EKG rhythm strip was abnormal. Objective - Constitutional Vitals: Temp Pulse Resp BP Pulse Ox 98.2 F 72 16 131/78 98 11/23/16 11:52 11/23/16 11:52 11/23/16 11:52 11/23/16 11:52 11/23/16 11:52 - Neurological Exam Sensorimotor examination: Present: intact Motor Examination: Present: grossly full strength in all extremities Sensation intact: Present: intact Reflex and gait examination: intact Reflexes: Biceps: 2+, Triceps: 2+, Brachioradialis: 2+, Patella: 2+, Achilles: 2 + Mental Status Examination: Present: awake, alert, oriented to person, oriented to place, oriented to time, follows commands appropriately, answers questions appropriately, no agnosia, no aphasia, no aproxia Cranial nerve examination: Present: PERRL, EOMI, visual ignacio intact, sensory to face intact, mastication intact, no facial asymmetry is present, hearing is intact symmetrically, soft palate elevates bilaterally upon phonation Results - Laboratory Findings CBC and BMP: 11/23/16 04:29 11/23/16 04:29 Abnormal lab findings: Abnormal lab results RBC 3.61 M/mcL (3.82-4.97) L 11/23/16 04:29 Hgb 10.9 g/dL (11.5-15.4) L 11/23/16 04:29 Hct 32.9 % (35.3-44.9) L 11/23/16 04:29 Chloride 111 mEq/L (98-109) H 11/23/16 04:29 BUN 33 mg/dL (7-20) H 11/23/16 04:29 Creatinine 1.57 mg/dL (0.57-1.11) H 11/23/16 04:29 Est GFR ( Amer) 38 (> 60) L 11/23/16 04:29 Est GFR (Non-Af Amer) 31 (> 60) L 11/23/16 04:29 Total Bilirubin 1.4 mg/dL (0.2-1.2) H 11/23/16 04:29 Albumin 3.4 g/dL (3.5-5.0) L 11/23/16 04:29 Ur Leukocyte Esterase Small (Negative) H 11/22/16 16:45 Ur Squamous Epith Cells Moderate per lpf (None-Few) H 11/22/16 16:45 Ur Culture Indicated? YES (NO) A 11/22/16 13:29
[2016-11-23] MEDS: APIXABAN 2.5 MG TABLET PO SCH ×2 (10:25→21:19)
[2016-11-23] MEDS: Metoprolol XL (24 HR) Succ 25 MG TAB.ER.24H PO SCH (10:25)
[2016-11-23] MEDS: Cholecalciferol (D-3) 1,000 UNIT TABLET PO SCH (10:25)
[2016-11-23] MEDS: Cyanocobalamin (B-12) 1,000 MCG TABLET PO SCH (10:26)
--- NOTE | 2016-11-23 13:30 | EEG/EMG/Oth Biometrics Report ---
EEG Procedure Report Date of procedure: 11/23/16 EEG Procedure: Routine EEG Procedure Note: This is a report of a 21 channel bipolar and referential montage EEG. A posterior dominant rhythm of 8 Hz moderate voltage alpha frequencies identified symmetrically and the posterior head regions. This rhythm attenuates symmetrically with eye opening. Hyperventilation is not performed during the study. Periods of drowsiness and stage II sleep are identified as reference by dropout of the posterior dominant rhythm, and the emergence of vertex activity, K complexes, and sleep spindles. Photic stimulation is performed and does not produce a driving response. The EKG rhythm strip is very low voltage and there appears to be a conduction block. Occasional PVCs are identified. Rate is 72 beats per minute. Impressions: This EEG recording is within normal limits. There is no evidence of epileptiform activity identified during the study. Comment: The EKG rhythm strip is very abnormal. The QRS complexes low-voltage and does not appear to be sinus rhythm. Cardiology assessment may prove beneficial. The documentation in the history of HPI and plan were at least partially created by [facility] voice recognition technology by Dr. Figueroa. Errors in grammar, wording or other phrases may exist. If errors are found after the documentation signed, they will be addressed individually in the addendum section of this document when appropriate.
--- NOTE | 2016-11-23 14:37 | Carotid Imaging Report ---
Carotid Duplex Patient Name:Evangelina Canales Order Number:[id number] Procedure Date:11/22/2016 Date:1925ge:89 yrs Gender:Female Rt.BP:159 / 74 mmHgHeart Rate: Location:[facility] Room #: 3B32 Senior Premium Auditor:Vera Izquierdo, TAYLOR Referring MD:Elena Finch CNP emr analyst:Rod Russell MD Reading MD:Kraig Blair MD Primary Indications:Syncope and collapse Risk Factors Yes/No Hypertension Yes Hx of TIA Yes Impressions: The right carotid artery has minimal plaque throughout. The left carotid artery is normal throughout. Recommendations: Preliminary discussed with pt RN and noted in pt EMR. Test completed on 11/22/2016 at 7:43:00 pm. Findings Carotid Duplex: Right: The right proximal common carotid artery has a PSV of 55 cm/s and a EDV of 12 cm/s. The right mid common carotid artery has a PSV of 58 cm/s and a EDV of 14 cm/s. There is nonstenotic plaque in the right bifurcation with a PSV of 49 cm/s and a EDV of 15 cm/s. There is smooth plaque. The right proximal internal carotid artery has a PSV of 45 cm/s and a EDV of 18 cm/s. The right mid internal carotid artery has a PSV of 48 cm/s and a EDV of 16 cm/s. The right distal internal carotid artery has a PSV of 53 cm/s and a EDV of 17 cm/s. The right eca has a PSV of 93 cm/s and a EDV of 14 cm/s. The right vertebral artery has a PSV of 67 cm/s and a EDV of 19 cm/s. There is antegrade spectral Doppler flow patterns. Left: The left proximal common carotid artery has a PSV of 89 cm/s and a EDV of 23 cm/s. The left mid common carotid artery has a PSV of 66 cm/s and a EDV of 18 cm/s. The left distal common carotid artery has a PSV of 79 cm/s and a EDV of 26 cm/s. The left bifurcation has a PSV of 71 cm/s and a EDV of 19 cm/s. The left proximal internal carotid artery has a PSV of 57 cm/s and a EDV of 18 cm/s. The left mid internal carotid artery has a PSV of 71 cm/s and a EDV of 28 cm/s. The left distal internal carotid artery has a PSV of 72 cm/s and a EDV of 28 cm/s. The left eca has a PSV of 94 cm/s and a EDV of 17 cm/s. The left vertebral artery has a PSV of 88 cm/s and a EDV of 16 cm/s. There is antegrade spectral Doppler flow patterns. Prior Study: No prior study available for comparison. Carotid Results Right PSV EDV Assessment Proximal CCA 55 12 Mid CCA 58 14 Bifurcation 49 15 Non Stenotic Plaque Proximal ICA 45 18 Mid ICA 48 16 Distal ICA 53 17 ECA 93 14 Vertebral Artery 67 19 Antegrade Flow Left PSV EDV Assessment Proximal CCA 89 23 Mid CCA 66 18 Distal CCA 79 26 Bifurcation 71 19 Proximal ICA 57 18 Mid ICA 71 28 Distal ICA 72 28 ECA 94 17 Vertebral Artery 88 16 Antegrade Flow Ratio's Right ICA/CCA Ratio: 0.91 ICA/CCA Values: 53/58 Left ICA/CCA Ratio: 1.09 ICA/CCA Values: 72/66 Updated by Kraig Blair MD on 11/23/2016 2:29:51 PM electronically signed on 11/23/2016 2:30:08 PM with status of Final
--- NOTE | 2016-11-23 18:08 | Internal Med Progress Note ---
Date of Encounter: 11/23/16 Time of Encounter: 09:00 - Assessment and plan (1) Syncope Current Visit: Yes Status: Acute Assessment and plan: Etiology is undetermined. - Patient has history of seizure disorder, off medication now. However, the syncope patient described is not consistent with seizure. - Neurology consult appreciated, medication adjusted per neurology. - EEG done. - Duplex carotid unremarkable - Echo shows systolic CHF with severe MS, will consult cardiology. Qualifiers: Syncope type: unspecified Qualified Code(s): R55 - Syncope and collapse (2) CKD (chronic kidney disease) Current Visit: No Status: Acute Assessment and plan: Stable, close monitoring Qualifiers: Chronic kidney disease stage: stage 3 (moderate) Qualified Code(s): N18.3 - Chronic kidney disease, stage 3 (moderate) (3) DVT prophylaxis Current Visit: Yes Status: Acute Assessment and plan: Patient is on Eliquis. (4) Atrial fibrillation Current Visit: Yes Status: Chronic Assessment and plan: Rate is a well-controlled. Continue beta janae and Eliquis Qualifiers: Atrial fibrillation type: chronic Qualified Code(s): I48.2 - Chronic atrial fibrillation (5) Seizure disorder Current Visit: Yes Status: Chronic Assessment and plan: History of seizure disorder. Zonegran placed per neurology (6) Non-ischemic cardiomyopathy Current Visit: No Status: Acute Assessment and plan: LVEF 35-40%, With MS, no signs of exacerbation, on beta janae. (7) Hypertension Current Visit: Yes Status: Acute Assessment and plan: Continue home medications Qualifiers: Hypertension type: essential hypertension Qualified Code(s): I10 - Essential (primary) hypertension - Time Spent With Patient 25 - 35 minutes - Subjective Interval history: Patient is a 89-year-old female admitted for syncope. Her past medical history is significant for A. fib, CHF, seizure, TIA. Patient was seen and examined. Denies dizziness or lightheaded. Denies shortness of breath or chest pain. Vitals are stable. Neurology CONSULT appreciated. EEG done. Carotid duplex result is unremarkable. Patient did echo a week ago, shows LVEF 35-40%, severe MS, will consult cardiology for further management. Closely monitor patient. - Constitutional Vitals: Temp Pulse Resp BP Pulse Ox 97.2 F L 72 15 130/76 96 11/23/16 15:51 11/23/16 15:51 11/23/16 15:51 11/23/16 15:51 11/23/16 15:51 General appearance: Present: A&O X 3, no acute distress, answers questions appropriately - Head Head exam: Present: atraumatic, normocephalic - Eye Eye exam: Present: PERRL, conjuntiva pink, sclera anicteric Pupils: Present: PERRL - Neck Neck exam general surgery: Present: supple, trachea midline. Absent: lymphadenopathy - Respiratory Respiratory exam: Present: CTAB. Absent: accessory muscle use, rales, rhonchi, wheezes - Cardiovascular Cardiovascular exam: Present: RRR, +S1, +S2. Absent: diastolic murmur, gallop, rubs, systolic murmur - GI/Abdominal GI/Abdominal exam: Present: normal bowel sounds, soft, no peritoneal signs. Absent: distended, tenderness - Extremities Exam Extremities exam: Present: warm, radial pulses palpable and symetrical. Absent : calf tenderness, cyanotic, pedal edema - Neurological Exam Neurological exam: Present: CN II-XII intact, oriented X3, no focal deficits. Absent: pronater drift, facial droop, speech deficit - Skin Skin exam: Present: dry, intact Internal Medicine: Result - Labs CBC & Chem 7: 11/23/16 04:29 11/23/16 04:29 Labs: Short CBC 11/23/16 Range/Units 04:29 WBC 5.5 (4.3-11.1) K/mcL Hgb 10.9 L (11.5-15.4) g/dL Hct 32.9 L (35.3-44.9) % Plt Count 162 (140-400) K/mcL Neutrophils # 3.6 (1.6-8.9) K/mcL BMP 11/23/16 04:29 Sodium 140 Potassium 3.7 Chloride 111 H Carbon Dioxide 20 BUN 33 H Creatinine 1.57 H Glucose 90 Calcium 9.4 Liver Function 11/23/16 Range/Units 04:29 Total Bilirubin 1.4 H (0.2-1.2) mg/dL AST 16 (5-34) Units/L ALT < 6 (0-55) Units/L Alkaline Phosphatase 47 (38-126) Units/L Albumin 3.4 L (3.5-5.0) g/dL Consult Discharge Plan - Plan Referrals: Natasha Garland CNP [Advanced Practice Nurse] - 11/28/16 11:00 am
--- NOTE | 2016-11-23 19:23 | Electrocardiograph Report ---
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
[2016-11-23] MEDS: Melatonin 3 MG TABLET PO SCH ×2 (21:19→21:20)
[2016-11-24 05:14] LABS: Basophils % 0.5 %; Eosinophils # 0.1 K/mcL (0.0-0.6); Eosinophils % 1.8 %; Hematocrit 34.7 % (35.3-44.9); Hemoglobin 11.3 g/dL (11.5-15.4); Immature Granulocytes % 0.4 % (0-4); Lymphocytes # 1.2 K/mcL (0.6-4.6); Lymphocytes % 20.9 %; Mean Corpuscular HGB Conc 32.6 g/dL (31.6-35.5); Mean Corpuscular Hemoglobin 29.7 pg (28.0-33.3); Mean Corpuscular Volume 91.1 fL (83.0-100.0); Mean Platelet Volume 10.2 fL (9.4-12.4); Monocytes # 0.5 K/mcL (0.0-1.3); Monocytes % 8.8 %; Neutrophils # 3.8 K/mcL (1.6-8.9); Platelet Count 173 K/mcL (140-400); Red Blood Count 3.81 M/mcL (3.82-4.97); Red Cell Distribution Width 13.4 % (11.5-14.5); Segmented Neutrophils % 67.6 %
[2016-11-24 05:28] LABS: Calcium 9.3 mg/dL (8.6-10.8); Potassium 3.7 mEq/L (3.5-4.5)
--- NOTE | 2016-11-24 08:57 | Cardiology Consult Note ---
Date of Encounter: 11/24/16 Time of Encounter: 08:55 Assessment and Plan (1) Syncope Current Visit: Yes Status: Acute Patient is an 89 year old female with history of afib on eliquis, non ischemic cardiomyopathy with systolic dysfunction, s/p pacemaker/AICD, CKD stage 3, seizure disorder, and history of TIA who was admitted with complaint of unresponsiveness/syncopal episode. EKG revealed electronic ventricular paced rhythm, rate 70, with uncertain underlying rhythm, no acute changes. CXR revealed stable cardiomegaly, stable ectatic atherosclerotic thoracic aorta , left sided AICD, pulmonary hyperinflation, and no acute lung consolidation or interstitial edema. Head CT was negative for acute intracranial abnormality Carotid duplex revealed minimal plaque throughout right carotid artery and normal left carotid artery. EEG was within normal limits, no evidence of epileptiform activity. Troponin 0.03, Cr 1.62 Orthostatics negative. Neuro was consulted for syncope, no MRI recommended at this time, started on Zonegran antiepileptic. Review of Neurology notes indicated episodic loss of consciousness likely cardiogenic. Review of Telemetry past 24 hours, no significant events or deviation from patient's normal. Pacemaker/AICD interrogation orders placed. [place] device. Qualifiers: Syncope type: unspecified Qualified Code(s): R55 - Syncope and collapse (2) Non-ischemic cardiomyopathy Current Visit: Yes Status: Chronic Known history of non-ischemic cardiomyopathy with systolic dysfunction with pacemaker/AICD placed in 2006, patient of Dr Lara at [facility]. Echo 11/14/16 revealed LVEF 35-40%. Global LV systolic dysfunction. Indeterminate diastolic function. Normal RV structure and function. Extremely severe enlargement of the Left Atrium. Moderately calcified aortic valve leaflets. Mild aortic regurgitation. 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 Moderate mitral regurgitation. Mild mitral stenosis suggested by Doppler, visually appears wore. Moderate tricuspid regurgitation. Mild pulmonary hypertension. Continue home medications for chronic disease management. (3) Atrial fibrillation Current Visit: Yes Status: Chronic Known history of afib on eliquis. s/p pacemaker/AICD EKG revealed electronic ventricular paced rhythm, rate 70, with uncertain underlying rhythm, no acute changes. Currently rate controlled. Continue Toprol and Eliquis home medications. Qualifiers: Atrial fibrillation type: chronic Qualified Code(s): I48.2 - Chronic atrial fibrillation (4) Hypertension Current Visit: Yes Status: Acute Borderline controlled. Bp 152/90, pulse 70 Cholorthalidone held during this hospital stay due to CKD stage 3, at baseline. Continue Toprol XL 12.5mg qd. Continue monitoring Qualifiers: Hypertension type: essential hypertension Qualified Code(s): I10 - Essential (primary) hypertension (5) Seizure disorder Current Visit: Yes Status: Chronic Seizure disorder diagnosed in 2013. Previously on Keppra, self dicontinued. EEG negative. Neuro notes reviewed, syncope likely cardiac etiology. Started patient on Zonegran antiepileptic. Discussion w patient/family: The assessment and plan as outlined above was discussed with the patient and/or family members who expressed understanding and agreement. All questions were answered. Thank you for involving us in the care of your patient. Please call with any questions. History of Present Illness Consult date: 11/23/16 Requesting physician: Shaka Rahman Consult reason: Syncope, echo with severe mitral stenosis Chief complaint: Unresponsive/syncope History of present illness: Ms. Canales is a 89 year old female with history of afib on eliquis, non ischemic cardiomyopathy with systolic dysfunction (11/15/16 LVEF 35-40%), s/p pacemaker/AICD, CKD stage 3, hypertension, seizure disorder, and history of TIA who was transferred to [facility] from [facility] with complaint of episode of unresponsiveness. Patient reports her home health nurse found her unresponsive for 2-3 minutes while sitting in a chair and drooling. Denies being conscious throughout episode. ED notes indicate patient did not have tonic-clonic activity or starring episodes. Patient reports that just prior to the event she was outside working in the garden, returned inside and was getting ready to go grocery shopping. She denies remembering any other preceding events including lightheadedness, dizziness, chest pain or pressure, palpitations, shortness of breath, or weakness. ED report indicates patient was disoriented until EMS arrived, but patient was back at baseline when EMS arrived. Patient reports she regained consciousness and was back to baseline upon EMS arrival. Denies prior episodes of unresponsiveness. Patient reports she self discontinued her Keppra for her seizures about 2 months ago due to side effect of lightheadedness and reportedly no seizure activity since. Patient was recently discharged from the hospital on 11/16/16 for epigastric pain and at that time was started on 12.5mg Toprol XL qd at last visit for non-ischemic cardiomyopathy. Reports no follow up appointment with [employer] after last hospital discharge. EKG revealed electronic ventricular paced rhythm, rate 70, with uncertain underlying rhythm, no acute changes. CXR revealed stable cardiomegaly, stable ectatic atherosclerotic thoracic aorta , left sided AICD, pulmonary hyperinflation, and no acute lung consolidation or interstitial edema. Head CT was negative for acute intracranial abnormality Carotid duplex revealed minimal plaque throughout right carotid artery and normal left carotid artery. EEG was within normal limits, no evidence of epileptiform activity. Neuro was consulted for syncope, no MRI recommended at this time, started on Zonegran antiepileptic, review of Neurology notes indicated episodic loss of consciousness likely cardiogenic Troponin 0.03, Cr 1.62 Orthostatics normal. Patient reports no additional episodes of syncope since admission. Denies fevers, chills, sweats, changes in vision or hearing, chest pain or pressure, shortness of breath, nausea, vomiting, abdominal pain, changes in bowels or bladder, weakness, or loss of sensation. Reports one of her sons had a pacemaker placed after hospitalization for episode of unresponsiveness. Cardiology was consulted to evaluate patient for syncope. Past Med Surg Social Fam HX - Past Medical History Medical history: atrial fibrillation, CHF ((EF 35-40% 11/14/16)), renal disease (CKD stage 3), seizures, TIA Psychiatric history: no psych history - Past Surgical History Surgical History: hysterectomy, thyroidectomy - Social History Smoking Status: Never smoker Smokeless Tobacco Status: No Alcohol use: none Drug use: none Occupational status: retired Current living situation: Home - Independent, Other (with home health nurse) Activity Level: Independent ambulation Recent Out of Country Travel Within the Last 8 Weeks: No Exposure or Possible Exposure to Illness During Travel: No - Family History Mother Name: Denise Car Living Status: Age at : 87 Cause of : cancer Hx Family Cancer: Yes Medications and Allergies Potassium Chloride 10 meq PO DAILY 06/12/15 [History] Chlorthalidone 25 mg PO DAILY 06/16/15 [History] Apixaban [Eliquis] 2.5 mg PO BID 08/11/16 [History] Acetaminophen [Tylenol] 1,000 mg PO BID PRN 11/13/16 [History] Clotrimazole 1% CRM [Lotrimin 1%] 1 appl TP BID 11/13/16 [History] Melatonin 5 mg PO HS 11/13/16 [History] Mupirocin [Bactroban Oint] 1 appl TP BID 11/13/16 [History] Metoprolol XL (24 HR) Succ [Toprol Xl] 12.5 mg PO DAILY #30 tab.er.24h 11/16/16 [Rx] Cholecalciferol (D-3) [Vitamin D] 1,000 unit PO DAILY 11/22/16 [History] Cyanocobalamin (Vitamin B-12) [Vitamin B12] 1,000 mcg PO DAILY 11/22/16 [History ] Allergies azithromycin [From Zithromax Z-Kimo] Allergy (Verified 11/13/16 12:44) See Comments UNKNOWN REACTION Sulfa (Sulfonamide Antibiotics) Allergy (Verified 11/13/16 12:44) See Comments UNKNOWN REACTION All Systems Review: A 10-system review of systems was performed and is negative for pertinent findings except as documented above in the HPI. - Constitutional Constitutional: no chills, no fever(s), no headache(s), no night sweats, no weakness, no weight gain - EENT Eyes: no blurred vision, no loss of vision Nose, mouth and throat: no dysphagia, no sore throat - Cardiovascular Cardiovascular: as per HPI, syncope, no chest pain at rest, no chest pain with exertion, no diaphoresis, no dyspnea at rest, no dyspnea on exertion, no lightheadedness, no palpitations - Respiratory Respiratory: no cough, no dyspnea - Gastrointestinal Gastrointestinal: no abdominal pain, no constipation, no diarrhea, no dysphagia , no nausea - Genitourinary Genitourinary: no dysuria - Musculoskeletal Musculoskeletal: no abnormal gait - Neurological Neurological: syncope, no abnormal speech, no dizziness, no focal weakness, no loss of vision, no memory loss, no numbness, no tingling Physical Examination Vital Signs, Last 4 Hours Temp Pulse Resp BP Pulse Ox 11/24/16 07:24 97.6 F 70 15 152/90 93 General: Conversant, No Apparent Distress HEENT: Atraumatic, Normocephaly, Mucus Membranes Moist Neck: No JVD Cardiac: Normal S1 and S2, No Murmur, Other (normal rate, irregular rhythm) Lungs: Normal Breath Sounds, No Wheeze, Rales, Rhonchi Neuro: Alert and responsive, No focal deficits noted Abdomen: Soft, Non-Tender Skin: No rashes noted on visualized skin Musculoskeletal: No Chest Wall Tenderness Extremities: No Clubbing, No Cyanosis, No Edema, Normal Pulses Results 11/24/16 04:34 11/24/16 04:34 Lab Results 11/24/16 11/24/16 04:34 04:34 WBC 5.6 Hgb 11.3 L Hct 34.7 L Plt Count 173 Sodium 141 Potassium 3.7 Chloride 111 H Carbon Dioxide 18 L BUN 39 H Creatinine 1.76 H Glucose 97 Calcium 9.3 Consult Discharge Plan - Plan Referrals: Natasha Garland CNP [Advanced Practice Nurse] - 11/28/16 11:00 am
[2016-11-24] MEDS: Metoprolol XL (24 HR) Succ 25 MG TAB.ER.24H PO SCH (08:58)
[2016-11-24] MEDS: Cholecalciferol (D-3) 1,000 UNIT TABLET PO SCH (08:58)
[2016-11-24] MEDS: APIXABAN 2.5 MG TABLET PO SCH (08:58)
[2016-11-24] MEDS: Cyanocobalamin (B-12) 1,000 MCG TABLET PO SCH (08:58)
[2016-11-24] MEDS ORDERED: Metoprolol XL (24 HR) Succ 25 MG TAB.ER.24H PO SCH (14:15)
[2016-11-24 15:36] VITALS: BP 147/81
--- NOTE | 2016-11-24 15:50 | Discharge Summary ---
Date of Encounter: 11/24/16 Time of Encounter: 15:00 - Discharge Diagnosis (1) Syncope Priority: Primary Status: Acute Qualifiers: Syncope type: unspecified Qualified Code(s): R55 - Syncope and collapse (2) CKD (chronic kidney disease) Priority: Secondary Status: Acute Qualifiers: Chronic kidney disease stage: stage 3 (moderate) Qualified Code(s): N18.3 - Chronic kidney disease, stage 3 (moderate) (3) DVT prophylaxis Priority: Secondary Status: Acute (4) Atrial fibrillation Priority: Secondary Status: Chronic Qualifiers: Atrial fibrillation type: chronic Qualified Code(s): I48.2 - Chronic atrial fibrillation (5) Seizure disorder Priority: Secondary Status: Chronic (6) Non-ischemic cardiomyopathy Priority: Secondary Status: Chronic (7) Hypertension Priority: Secondary Status: Acute Qualifiers: Hypertension type: essential hypertension Qualified Code(s): I10 - Essential (primary) hypertension - Discharge Medications Prescriptions: Metoprolol XL (24 HR) Succ [Toprol Xl] 25 mg PO DAILY #30 tab.er.24h Zonisamide [Zonegran] 100 mg PO DAILY #60 capsule Home Medications: Potassium Chloride 10 meq PO DAILY 06/12/15 [History] Chlorthalidone 25 mg PO DAILY 06/16/15 [History] Apixaban [Eliquis] 2.5 mg PO BID 08/11/16 [History] Acetaminophen [Tylenol] 1,000 mg PO BID PRN 11/13/16 [History] Clotrimazole 1% CRM [Lotrimin 1%] 1 appl TP BID 11/13/16 [History] Melatonin 5 mg PO HS 11/13/16 [History] Mupirocin [Bactroban Oint] 1 appl TP BID 11/13/16 [History] Cholecalciferol (D-3) [Vitamin D] 1,000 unit PO DAILY 11/22/16 [History] Cyanocobalamin (Vitamin B-12) [Vitamin B12] 1,000 mcg PO DAILY 11/22/16 [History ] Metoprolol XL (24 HR) Succ [Toprol Xl] 25 mg PO DAILY #30 tab.er.24h 11/24/16 [ Rx] Zonisamide [Zonegran] 100 mg PO DAILY #60 capsule 11/24/16 [Rx] Allergies/Adverse Reactions: Allergies azithromycin [From Zithromax Z-Kimo] Allergy (Verified 11/13/16 12:44) See Comments UNKNOWN REACTION Sulfa (Sulfonamide Antibiotics) Allergy (Verified 11/13/16 12:44) See Comments UNKNOWN REACTION - Notes to Outpatient Provider 1. Metoprolol XL has been increased dose to 25 mg daily, per cardiology recommendation. 2. Zonisamide 100mg po daidy added per neurology for seizure disorder. Date of admission: 11/22/16 14:02 Primary care physician: Rod Russell MD Consults: 11/22/16 15:25 Consult to Neurology [CONS] Routine Consulting Provider: Neurology [facility] Reason for Consult: Syncope Call Completed: Yes 11/23/16 11:27 Consult to Interpret Exam [CONS] Routine Consulting Provider: Singh Benito Consult to Interpret Exam: Interpret EEG 11/23/16 18:15 Consult to Cardiology [CONS] Routine Comment: Consulting Provider: Cardiology Karine Reason for Consult: Syncope, Echo shows severe MS with EF 35-40% Call Completed: No Discharging clinician: Shaka Rahman Anticipated date of discharge: 11/24/16 - Patient Status Disposition: Home Health Service Condition: Fair Overall status at discharge: patient is back to baseline - Discharge Instructions Follow Up With: Natasha aGrland CNP [Advanced Practice Nurse] - 11/28/16 11:00 am Forms: ED Satisfaction Letter - Diet and Activity Activity: increase activity as tolerated Diet: advance to your usual diet Interval History: Ms. Canales is a 89 year old female with PMH how presented to [facility] on 11/22/2016 after an unresponsive episode at home. She was admitted for further work-up and treatment. Information obtained from chart review and patient report although patient does not know or remember what happened. Per ED notes, patient was at home sitting in chair when she had a 2-3 minute unresponsive episode. Her [facility] aide was there and witnessed the event. No reported shaking or jerking noted. The [facility] aide is not at bedside so unable to obtain details. On my exam she says she feels fine, she actually has no complaints. She specifically denies no vision changes, no evidence of bitting tongue, no loss of bowel/bladder incont, CP, no SOB, no ABD pain Hospital course: Ms. Canales is a 89 year old female admitted for syncope. Patient was placed on continuous cardiac monitoring, duplex carotid. Patient recently had echo done about one week ago. Neurology and cardiology consult was called and saw patient. EEG has been done. All the tests results are unremarkable. Patient had no further syncope episode. Her medication has been adjusted by neurology and cardiology. Patient will discharge home with home health. Patient was seen and examined. She is awake alert, oriented 3. No dizziness. Call walk around in room. Vital signs stable. Patient is stable to discharge home with home health. Prescription given patient per neurology and cardiology recommendation. - Time Spent with Patient Total time spent providing and/or coordinating discharge services: 40 minutes Greater than 30 minutes - Constitutional Vitals: Temp Pulse Resp BP Pulse Ox 97.4 F L 78 17 147/81 96 11/24/16 15:36 11/24/16 15:36 11/24/16 15:36 11/24/16 15:36 11/24/16 15:36 General appearance: Present: A&O X 3, no acute distress, answers questions appropriately - Head Head exam: Present: atraumatic, normocephalic - Eye Eye exam: Present: PERRL, conjuntiva pink, sclera anicteric Pupils: Present: PERRL - Neck Neck exam general surgery: Present: supple, trachea midline. Absent: lymphadenopathy - Respiratory Respiratory exam: Present: CTAB. Absent: accessory muscle use, rales, rhonchi, wheezes - Cardiovascular Cardiovascular exam: Present: RRR, +S1, +S2. Absent: diastolic murmur, gallop, rubs, systolic murmur - GI/Abdominal GI/Abdominal exam: Present: normal bowel sounds, soft, no peritoneal signs. Absent: distended, tenderness - Extremities Exam Extremities exam: Present: warm, radial pulses palpable and symetrical. Absent : calf tenderness, cyanotic, pedal edema - Neurological Exam Neurological exam: Present: CN II-XII intact, oriented X3, no focal deficits. Absent: pronater drift, facial droop, speech deficit - Skin Skin exam: Present: dry, intact
--- NOTE | 2016-11-24 16:12 | Physician Discharge Referral ---
Home Health/Hosp Referral Info Transfer to: Home Health Provider in Charge Post Discharge: PCP - Diagnosis (1) Syncope Priority: Primary Status: Acute (2) CKD (chronic kidney disease) Priority: Secondary Status: Acute (3) DVT prophylaxis Priority: Secondary Status: Acute (4) Atrial fibrillation Priority: Secondary Status: Chronic (5) Seizure disorder Priority: Secondary Status: Chronic (6) Non-ischemic cardiomyopathy Status: Chronic (7) Hypertension Status: Acute - Respiratory Orders Smoking Cessation: Smoking cessation has been advised. For more information, call the [place] Tobacco Quit Line at 2-019-LIKQ-NOW. - Transfer Medications Prescriptions: Metoprolol XL (24 HR) Succ [Toprol Xl] 25 mg PO DAILY #30 tab.er.24h Zonisamide [Zonegran] 100 mg PO DAILY #60 capsule Home Medications: Potassium Chloride 10 meq PO DAILY 06/12/15 [History] Chlorthalidone 25 mg PO DAILY 06/16/15 [History] Apixaban [Eliquis] 2.5 mg PO BID 08/11/16 [History] Acetaminophen [Tylenol] 1,000 mg PO BID PRN 11/13/16 [History] Clotrimazole 1% CRM [Lotrimin 1%] 1 appl TP BID 11/13/16 [History] Melatonin 5 mg PO HS 11/13/16 [History] Mupirocin [Bactroban Oint] 1 appl TP BID 11/13/16 [History] Cholecalciferol (D-3) [Vitamin D] 1,000 unit PO DAILY 11/22/16 [History] Cyanocobalamin (Vitamin B-12) [Vitamin B12] 1,000 mcg PO DAILY 11/22/16 [History ] Metoprolol XL (24 HR) Succ [Toprol Xl] 25 mg PO DAILY #30 tab.er.24h 11/24/16 [ Rx] Zonisamide [Zonegran] 100 mg PO DAILY #60 capsule 11/24/16 [Rx] Allergies/Adverse Reactions: Allergies azithromycin [From Zithromax Z-Kimo] Allergy (Verified 11/13/16 12:44) See Comments UNKNOWN REACTION Sulfa (Sulfonamide Antibiotics) Allergy (Verified 11/13/16 12:44) See Comments UNKNOWN REACTION Certification: Further, I certify that my clinical findings support that this patient is homebound (i.e. absences from home require considerable and taxing effort and are for medical reasons or sikhism services or infrequently or short duration when for other reasons) because: Homebound Reason: Patient requires assistance of a person or device to safely leave home Attestation: My signature below is to certify that this patient is under my care and that I, or nurse practitioner, or a physician's dental assistant instructor working with me, has a face-to -face encounter with this patient.
== END 2016-11-24 16:34 | disposition home health service (06) ==
LOC: EMEROO 11:49 → 3BNU 11:49 → SUATTDRO 14:02 → 3BNU 14:18
PROVIDERS: ADMIT Internal Medicine; ATTEND Internal Medicine

== ENCOUNTER 2016-12-29 14:55 | Inpatient (IN) ==
[2016-12-29] MEDS ORDERED: Acetaminophen 325 MG TABLET PO PRN (17:44)
[2016-12-29] MEDS ORDERED: Naloxone 0.4 MG/ML INJ IVP PRN (17:44)
[2016-12-29] MEDS ORDERED: Ondansetron ODT 4 MG TAB.RAPDIS SL PRN (17:44)
--- NOTE | 2016-12-29 18:08 | Internal Med History&Physical ---
Date of Encounter: 12/29/16 Time of Encounter: 18:00 Assessment and Plan (1) Femoral neck fracture Current visit: Yes Status: Acute Patient had syncopal episode and fell earlier today. Xray revealed acute fracture of right femoral neck. On exam, right leg is externally rotated with tenderness over right hip. Given patient's syncope and cardiac disease, will need clearance from cardiology for surgery. Consulted cardiology for clearance. Orthopedic surgery consulted, Dr. Tez russ. Qualifiers: Encounter type: initial encounter Fracture type: closed Laterality: right Qualified Code(s): S72.001A - Fracture of unspecified part of neck of right femur, initial encounter for closed fracture (2) Syncope Current visit: Yes Status: Acute Patient had syncopal episode earlier today, resulting in a right hip fracture. Patient's episode was witnessed and she did not hit her head. She was admitted in October for syncope and had cardiology and neurology work up, and no cause was identified. Continuous front desk monitor Cardiology consulted for surgical clearance. Qualifiers: Syncope type: unspecified Qualified Code(s): R55 - Syncope and collapse (3) Atrial fibrillation Current visit: Yes Status: Chronic Patient with atrial fibrillation. EKG showed ventricular paced rhythm. Continue home dose of metoprolol. Hold Eliquis for expected surgery. Qualifiers: Atrial fibrillation type: chronic Qualified Code(s): I48.2 - Chronic atrial fibrillation (4) Non-ischemic cardiomyopathy Current visit: Yes Status: Chronic Patient with non-ischemic cardiomyopathy, and has pacemaker/AICD. 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 Cardiology consulted for surgical clearance. (5) Seizure disorder Current visit: No Status: Chronic Patient reports history of seizure disorder, was previously on Keppra, but stopped on her own. During last hospitalization for syncope evaluation, she was evaluated with an EEG by neurology, which was found to be normal. 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 Zonegram ordered seizure precautions. (6) Elevated troponin Current visit: Yes Status: Acute Patient's troponin is 0.04. She denies any chest pain. Upon review of previous results, she often has mildly elevated troponin. Will trend. (7) CKD (chronic kidney disease) Current visit: Yes Status: Chronic Patient with chronic kidney disease. Creatinine of 1.62 today is consistent with her baseline. Avoid NSAIDS and nephrotoxins Daily chemistry. Qualifiers: Chronic kidney disease stage: stage 3 (moderate) Qualified Code(s): N18.3 - Chronic kidney disease, stage 3 (moderate) (8) DVT prophylaxis Current visit: No Status: Acute Sequential compression Devices Patient on Eliquis for history of afib. Hold for expected surgery. Internal Medicine - H&P: HPI Chief complaint: syncope, hip fracture Admitted From: Emergency Dept Plans for Post Hospital Care: Transfer Custodial Facility History of present illness: Ms. Canales is a 89 year old female with atrial fibrillation on Eliquis, congestive heart failure, nonischemic cardiomyopathy with pacemaker and AICD, seizure disorder, chronic kidney disease, history of TIA who was transferred from the [place] ED after having a syncopal episode and breaking her right hip. Patient does not recall what happened. Per records from the [place] ED, patient was in a store with her health aide and lost consciousness falling against the grocery cart. Health aide was able to help patient to the floor, and patient did not hit her head per the report. Evaluation in the [place] ED included a hip x -ray which showed an acute fracture of the right femoral neck. Chest x-ray showed no acute cardiopulmonary disease, cardiomegaly, and COPD. EKG showed electronic ventricular paced rhythm with heart rate of 78. Creatinine was 1.62 , down from most recent previous value, and consistent with her baseline. Troponin was 0.04. Patient was hospitalized in October for syncope, and had cardiology evaluation as well as neurological evaluation, no cause was identified at that time. On exam, patient alert and oriented, in no distress. Heart had irregular rhythm with ilene. Lungs were clear. Right leg was externally rotated with tenderness over right hip. Past Med Surg Social Fam HX - Past Medical History Medical history: atrial fibrillation, CHF, renal disease, seizures, TIA, other Psychiatric history: no psych history - Past Surgical History Surgical History: hysterectomy, pacemaker/AICD, thyroidectomy - Social History Smoking Status: Never smoker Smokeless Tobacco Status: No Alcohol use: none Drug use: none - Family History Mother Living Status: Age at : 87 Hx Family Cancer: Yes Internal Medicine - H&P: Meds Potassium Chloride 10 meq PO DAILY 06/12/15 [History] Chlorthalidone 25 mg PO DAILY 06/16/15 [History] Apixaban [Eliquis] 2.5 mg PO BID 08/11/16 [History] Acetaminophen [Tylenol] 1,000 mg PO BID PRN 11/13/16 [History] Metoprolol XL (24 HR) Succ [Toprol Xl] 25 mg PO DAILY #30 tab.er.24h 11/24/16 [ Rx] Allergies azithromycin [From Zithromax Z-Kimo] Allergy (Severe, Verified 12/26/16 14:56) Anaphylaxis Sulfa (Sulfonamide Antibiotics) Allergy (Severe, Verified 12/26/16 14:56) Anaphylaxis nitrofurantoin [From Macrodantin] Allergy (Verified 12/26/16 14:58) burning & itching Influenza Virus Vaccines Adverse Reaction (Verified 12/26/16 14:58) See Comments severe side effects All Systems PM: A 10-system review of systems was performed and is negative for pertinent findings except as documented above in the HPI. - Constitutional Constitutional: falls, no chills, no fever(s), no night sweats - EENT Eyes: no change in vision, no discharge, no pain, no photophobia Ears: no ear discharge, no ear pain, no tinnitus Nose, mouth and throat: no dysphagia, no nasal discharge, no neck pain, no sore throat - Cardiovascular Cardiovascular ROS IM: syncope, no chest pain, no diaphoresis, no dyspnea, no lightheadedness, no palpitations - Respiratory Respiratory: no cough, no dyspnea, no wheezing, no excessive phlegm production - Gastrointestinal Gastrointestinal: no abdominal pain, no diarrhea, no hematemesis, no hematochezia, no melena, no nausea, no vomiting - Genitourinary Genitourinary: no change in urinary stream, no dysuria, no flank pain, no hematuria - Musculoskeletal Musculoskeletal ROS IM: no numbness, no tingling Additional comments: pain in right hip - Integumentary Integumentary IM: no rash, no unusual bruising - Neurological Neurological ROS: no confusion, no convulsions, no focal weakness, no numbness, no tingling, no tremor(s) - Hematologic/Lymphatic Hematologic/Lymphatic: no easy bruising - Constitutional Vitals: Temp Pulse Resp BP Pulse Ox 97.9 F 69 15 171/77 97 12/29/16 16:18 12/29/16 16:18 12/29/16 16:18 12/29/16 16:18 12/29/16 16:18 General appearance: Present: cachectic, A&O X 3, pleasant - Head Head exam: Present: atraumatic, normocephalic - Eye Eye exam: Present: PERRL, conjuntiva pink, sclera anicteric Pupils: Present: PERRL - Neck Neck exam general surgery: Present: supple, trachea midline. Absent: lymphadenopathy - Respiratory Respiratory exam: Present: CTAB. Absent: accessory muscle use, rales, rhonchi, wheezes - Cardiovascular Cardiovascular exam: Present: gallop, irregular rhythm, +S1, +S2. Absent: diastolic murmur, rubs, systolic murmur - GI/Abdominal GI/Abdominal exam: Present: normal bowel sounds, soft, no peritoneal signs. Absent: distended, tenderness - Extremities Exam Extremities exam: Present: warm, radial pulses palpable and symetrical. Absent : calf tenderness, cyanotic, pedal edema Additional comments: right leg externally rotated with tenderness over right hip - Neurological Exam Neurological exam: Present: CN II-XII intact, oriented X3, no focal deficits. Absent: pronater drift, facial droop, speech deficit - Skin Skin exam: Present: dry, intact Internal Med - H&P Results - Labs Labs: Labs from [place] ED: Hgb 11.7 Hct 35.8 WBC 7.0 Plt 187 Na 141 K 3.6 CL 107 Co2 19 BUN 41 Cr 1.62 Glu 104 Trop 0.04 PT 14.5 INR 1.3 PTT 22.7
[2016-12-29] MEDS: *HR* OxyCODONE Immed Rel 5 MG TABLET PO PRN (18:12)
[2016-12-30] MEDS: *HR* OxyCODONE Immed Rel 5 MG TABLET PO PRN ×2 (03:48→12:49)
[2016-12-30 03:54] LABS: Basophils % 0.4 %; Eosinophils % 0.1 %; Hematocrit 38.6 % (35.3-44.9); Immature Granulocytes % 0.7 % (0-4); Lymphocytes # 0.7 K/mcL (0.6-4.6); Lymphocytes % 6.8 %; Mean Corpuscular HGB Conc 31.1 g/dL (31.6-35.5); Mean Corpuscular Hemoglobin 29.5 pg (28.0-33.3); Mean Corpuscular Volume 94.8 fL (83.0-100.0); Mean Platelet Volume 10.1 fL (9.4-12.4); Monocytes # 1.1 K/mcL (0.0-1.3); Platelet Count 158 K/mcL (140-400); Red Blood Count 4.07 M/mcL (3.82-4.97); Red Cell Distribution Width 12.9 % (11.5-14.5)
[2016-12-30 03:58] LABS: Neutrophils # 8.9 K/mcL (1.6-8.9)
[2016-12-30 04:10] LABS: Calcium 9.7 mg/dL (8.6-10.8); Potassium 4.1 mEq/L (3.5-4.5)
--- NOTE | 2016-12-30 09:05 | Cardiology Consult Note ---
Date of Encounter: 12/30/16 Time of Encounter: 09:00 Assessment and Plan (1) Preop cardiovascular exam Current Visit: Yes Status: Acute Moderate risk patient for this moderate risk surgery. No active chest pain. Known NICMP, LVEF improved per reports, most recent 35-40%. Preoperative cardiac testing appears unnecessary - unlikely to change risk stratification. Recommend continue BB therapy. (2) Atrial fibrillation Current Visit: Yes Status: Chronic AF on Eliquis as outpatient. Recommend heparin or Lovenox during perioperative period. Resume Eliquis prior to D/C. Continue BB. Followup with primary claim examiner. Qualifiers: Atrial fibrillation type: chronic Qualified Code(s): I48.2 - Chronic atrial fibrillation (3) Non-ischemic cardiomyopathy Current Visit: Yes Status: Chronic Known NICMP. Euvolemic on examination. CHF education provided. BB: Continue Toprol XL. ACEi: CKD noted. Start low dose ACEi when able. Diuretic: None. AA: Not on aldactone. CKD noted. ICD: In place. No further inpatient testing needed. Followup with primary claim examiner. Discussion w patient/family: The assessment and plan as outlined above was discussed with the patient and/or family members who expressed understanding and agreement. All questions were answered. Thank you for involving us in the care of your patient. Please call with any questions. History of Present Illness Consult date: 12/30/16 Requesting physician: Mercy Najera Consult reason: Preop Chief complaint: Preop History of present illness: Ms. Canales is a 89 year old female here for fall. Reported history of unexplained syncope. Similar event last night - walking in store when fall. Consultation requested re: preop. Past cardiac history: NICMP, s/p ICD, LVEF 35-40%, MV disease (Moderate MR, Mild MS (by gradients, visually appeared worse). Moderate TR. Mild pHTN. Functional capacity - somewhat frail appearing, but seems relatively active. No chest pain reported. Minimal flat troponin noted. Personal claim examiner - Aretha Syed. Past Med Surg Social Fam HX - Past Medical History Medical history: atrial fibrillation, CHF, renal disease, seizures, TIA, other Psychiatric history: no psych history - Past Surgical History Surgical History: hysterectomy, pacemaker/AICD, thyroidectomy - Social History Smoking Status: Never smoker Smokeless Tobacco Status: No Alcohol use: none Drug use: none - Family History Mother Living Status: Age at : 87 Hx Family Cancer: Yes Medications and Allergies Potassium Chloride 10 meq PO DAILY 06/12/15 [History] Chlorthalidone 25 mg PO DAILY 06/16/15 [History] Apixaban [Eliquis] 2.5 mg PO BID 08/11/16 [History] Acetaminophen [Tylenol] 1,000 mg PO BID PRN 11/13/16 [History] Metoprolol XL (24 HR) Succ [Toprol Xl] 25 mg PO DAILY #30 tab.er.24h 11/24/16 [ Rx] Allergies azithromycin [From Zithromax Z-Kimo] Allergy (Severe, Verified 12/26/16 14:56) Anaphylaxis Sulfa (Sulfonamide Antibiotics) Allergy (Severe, Verified 12/26/16 14:56) Anaphylaxis nitrofurantoin [From Macrodantin] Allergy (Verified 12/26/16 14:58) burning & itching Influenza Virus Vaccines Adverse Reaction (Verified 12/26/16 14:58) See Comments severe side effects All Systems Review: A 10-system review of systems was performed and is negative for pertinent findings except as documented above in the HPI. - Cardiovascular Cardiovascular: as per HPI Physical Examination Vital Signs, Last 4 Hours Temp Pulse Resp BP Pulse Ox 12/30/16 06:38 98.5 F 76 18 158/79 99 General: Conversant, No Apparent Distress HEENT: Atraumatic, Mucus Membranes Moist Neck: No JVD Cardiac: Other (Irregular at times, Mild murur) Lungs: Normal Breath Sounds, No Wheeze, Rales, Rhonchi Neuro: Alert and responsive, No focal deficits noted Abdomen: Soft, Non-Tender Skin: No rashes noted on visualized skin Musculoskeletal: No Chest Wall Tenderness Extremities: No Clubbing, No Cyanosis, No Edema Results 12/30/16 03:27 12/30/16 03:27 Lab Results 12/29/16 12/30/16 12/30/16 19:55 03:27 03:27 WBC 10.8 D Hgb 12.0 Hct 38.6 Plt Count 158 Sodium 136 Potassium 4.1 Chloride 105 Carbon Dioxide 17 L BUN 34 H Creatinine 1.37 H Glucose 123 H Calcium 9.7 Troponin I 0.05 H* 12/30/16 03:27 WBC Hgb Hct Plt Count Sodium Potassium Chloride Carbon Dioxide BUN Creatinine Glucose Calcium Troponin I 0.05 H* - Imaging and Cardiology Echo: report reviewed - EKG Interpretation EKG results cardiology: personally reviewed Consult Discharge Plan - Plan Referrals: Rod Russell MD [Primary Care Provider] -
[2016-12-30] MEDS: Metoprolol XL (24 HR) Succ 25 MG TAB.ER.24H PO SCH (09:13)
[2016-12-30] MEDS: *HR* Morphine 2 MG/ML SYRINGE IVP PRN ×2 (09:17→14:51)
--- NOTE | 2016-12-30 15:31 | Internal Med Progress Note ---
Date of Encounter: 12/30/16 Time of Encounter: 13:00 - Assessment and plan (1) Hip fracture Current Visit: Yes Status: Acute Assessment and plan: Acute right hip fracture status post fall. Pending orthopedic surgery for the consult but plan for possible surgical fixation tomorrow. Pain control with when necessary IV morphine and oral Percocet. Supportive care. Patient has been cleared with moderate risk by cardiology. Qualifiers: Encounter type: initial encounter Fracture type: closed Laterality: right Qualified Code(s): S72.001A - Fracture of unspecified part of neck of right femur, initial encounter for closed fracture (2) CKD (chronic kidney disease) Current Visit: Yes Status: Chronic Assessment and plan: Serum creatinine noted to be at baseline. Qualifiers: Chronic kidney disease stage: stage 3 (moderate) Qualified Code(s): N18.3 - Chronic kidney disease, stage 3 (moderate) (3) Atrial fibrillation Current Visit: Yes Status: Chronic Assessment and plan: Rate controlled. Continue beta janae. Start IV heparin drip for anticoagulation pending surgery when oral anticoagulation will be resumed. Qualifiers: Atrial fibrillation type: chronic Qualified Code(s): I48.2 - Chronic atrial fibrillation (4) Non-ischemic cardiomyopathy Current Visit: Yes Status: Chronic Assessment and plan: Cardiology consult appreciated. Continue home medications, currently not in acute exacerbation of CHF. (5) Syncope Current Visit: Yes Status: Acute Assessment and plan: Underwent full workup recently with no definitive diagnosis. We will continue Zonesamide per Neurology recommendations, for seizure prevention. Qualifiers: Syncope type: unspecified Qualified Code(s): R55 - Syncope and collapse (6) Hypertension Current Visit: Yes Status: Chronic Qualifiers: Hypertension type: essential hypertension Qualified Code(s): I10 - Essential (primary) hypertension - Subjective Interval history: Reports poor appetite. No nausea, emesis or abdominal pain. Reports right hip pain. - Constitutional Vitals: Temp Pulse Resp BP Pulse Ox 98.7 F 66 16 152/79 95 12/30/16 14:47 12/30/16 14:47 12/30/16 14:47 12/30/16 14:47 12/30/16 14:47 General appearance: Present: cachectic, A&O X 3, answers questions appropriately - Respiratory Respiratory exam: Present: CTAB (Anterolaterally). Absent: accessory muscle use , rales, rhonchi, wheezes - Cardiovascular Cardiovascular exam: Present: RRR, +S1, +S2, systolic murmur. Absent: diastolic murmur, gallop, rubs - GI/Abdominal GI/Abdominal exam: Present: normal bowel sounds, soft, no peritoneal signs. Absent: distended, tenderness - Extremities Exam Extremities exam: Present: full ROM (Restricted at right hip. Right lateral hip and proximal thigh tenderness noted.), warm, radial pulses palpable and symetrical. Absent: calf tenderness, cyanotic, pedal edema - Neurological Exam Neurological exam: Present: CN II-XII intact, oriented X3, no focal deficits. Absent: pronater drift, facial droop, speech deficit Internal Medicine: Result - Labs CBC & Chem 7: 12/30/16 03:27 12/30/16 03:27 Labs: Short CBC 12/30/16 Range/Units 03:27 WBC 10.8 D (4.3-11.1) K/mcL Hgb 12.0 (11.5-15.4) g/dL Hct 38.6 (35.3-44.9) % Plt Count 158 (140-400) K/mcL Neutrophils # 8.9 (1.6-8.9) K/mcL BMP 12/30/16 03:27 Sodium 136 Potassium 4.1 Chloride 105 Carbon Dioxide 17 L BUN 34 H Creatinine 1.37 H Glucose 123 H Calcium 9.7 Cardiac Enzymes 12/29/16 12/30/16 Range/Units 19:55 03:27 Troponin I 0.05 H* 0.05 H* (0-0.03) ng/mL - VTE Documentation of Mechanical Device: Intermittent pneumatic compression device Consult Discharge Plan - Plan Referrals: Rod Russell MD [Primary Care Provider] -
[2016-12-30] MEDS ORDERED: *HR* Heparin 5,000 UNIT/ML VIAL IVP PRN ×2 (15:34)
[2016-12-30] MEDS ORDERED: *HR* Heparin 5,000 UNIT/ML VIAL IVP ONE (15:34)
[2016-12-30] MEDS ORDERED: Heparin 25,000 UNIT/500 ML D5W 25,000 UNIT/500 ML MLS IVC SCH (15:45)
--- NOTE | 2016-12-30 16:16 | Orthopedic Consult Note ---
Date of Encounter: 12/30/16 Time of Encounter: 16:15 Assessment and Plan (1) Hip fracture Current Visit: Yes Status: Acute Right hip femoral neck fracture was displaced The patient required a right hip hemiarthroplasty. She has been seen by cardiology input at moderate risk. The patient scheduled for surgery tomorrow. The procedure with expected postoperative course was discussed with the patient. The risks, benefits alternatives were discussed with the patient. Qualifiers: Encounter type: initial encounter Fracture type: closed Laterality: right Qualified Code(s): S72.001A - Fracture of unspecified part of neck of right femur, initial encounter for closed fracture History of Present Illness Chief complaint: Right hip pain HPI: Ms. Canales is a 89 year old female community ambulator who blacked out last night and fell down sustaining a right hip fracture. Patient does not know the cause/loss consciousness. She denies any chest pain or shortness of breath right now. The patient is currently comfortable with minimal pain. Past Med Surg Social Fam HX - Past Medical History Medical history: atrial fibrillation, CHF, renal disease, seizures, TIA, other Psychiatric history: no psych history - Past Surgical History Surgical History: hysterectomy, pacemaker/AICD, thyroidectomy - Social History Smoking Status: Never smoker Smokeless Tobacco Status: No Alcohol use: none Drug use: none - Family History Mother Living Status: Age at : 87 Hx Family Cancer: Yes Medications and Allergies Potassium Chloride 10 meq PO DAILY 06/12/15 [History] Chlorthalidone 25 mg PO DAILY 06/16/15 [History] Apixaban [Eliquis] 2.5 mg PO BID 08/11/16 [History] Acetaminophen [Tylenol] 1,000 mg PO BID PRN 11/13/16 [History] Metoprolol XL (24 HR) Succ [Toprol Xl] 25 mg PO DAILY #30 tab.er.24h 11/24/16 [ Rx] Allergies azithromycin [From Zithromax Z-Kimo] Allergy (Severe, Verified 12/26/16 14:56) Anaphylaxis Sulfa (Sulfonamide Antibiotics) Allergy (Severe, Verified 12/26/16 14:56) Anaphylaxis nitrofurantoin [From Macrodantin] Allergy (Verified 12/26/16 14:58) burning & itching Influenza Virus Vaccines Adverse Reaction (Verified 12/26/16 14:58) See Comments severe side effects All Systems Reviewed: A 10-system review of systems was performed and is negative for pertinent findings except as documented above in the HPI. Physical Exam - Constitutional Vitals: Temp Pulse Resp BP Pulse Ox 98.7 F 66 16 152/79 95 12/30/16 14:47 12/30/16 14:47 12/30/16 14:47 12/30/16 14:47 12/30/16 14:47 General appearance IM: A&O X 3, thin, answers questions appropriately Exam: Head normocephalic and atraumatic Neck supple and nontender Bilateral upper extremities are nontender over joints and long bones Right hip is tender, right lower extremity is shortened and external rotated, painful range of motion Sensation intact at foot, dorsalis pedis pulse is thready and posterior tibialis pulses nonpalpable, does move her ankle and toes well Left hip is nontender, normal motion of the ankle and toes, sensation intact, pedal pulses are also very thready Results - Labs Result Diagrams: 12/30/16 03:27 12/30/16 03:27 Labs: Abnormal lab results MCHC 31.1 g/dL (31.6-35.5) L 12/30/16 03:27 Carbon Dioxide 17 mEq/L (19-29) L 12/30/16 03:27 BUN 34 mg/dL (7-20) H 12/30/16 03:27 Creatinine 1.37 mg/dL (0.57-1.11) H 12/30/16 03:27 Est GFR ( Amer) 44 (> 60) L 12/30/16 03:27 Est GFR (Non-Af Amer) 36 (> 60) L 12/30/16 03:27 Glucose 123 mg/dL (70-99) H 12/30/16 03:27 Troponin I 0.05 ng/mL (0-0.03) H* 12/30/16 03:27 H & H 12/30/16 Range/Units 03:27 Hgb 12.0 (11.5-15.4) g/dL Hct 38.6 (35.3-44.9) % All other labs normal. - Diagnostic results Hip x-ray: image reviewed (Right hip displaced femoral neck fracture) Consult Discharge Plan - Plan Referrals: Rod Russell MD [Primary Care Provider] -
[2016-12-30 17:11] LABS: Hematocrit 36.4 % (35.3-44.9); Hemoglobin 11.9 g/dL (11.5-15.4); Immature Platelets 3.6 % (1.1-6.1); Mean Corpuscular HGB Conc 32.7 g/dL (31.6-35.5); Mean Corpuscular Hemoglobin 29.8 pg (28.0-33.3); Mean Corpuscular Volume 91.2 fL (83.0-100.0); Mean Platelet Volume 10.2 fL (9.4-12.4); Red Blood Count 3.99 M/mcL (3.82-4.97); Red Cell Distribution Width 12.8 % (11.5-14.5)
[2016-12-30 17:21] LABS: INR 1.3; Prothrombin Time 14.1 Seconds (9.4-12.1)
[2016-12-30 17:24] LABS: Activated Partial Thrombo Time 25.3 Seconds (26.0-36.0)
[2016-12-31 01:28] LABS: Basophils % 0.2 %; Eosinophils % 0.2 %; Hemoglobin 11.6 g/dL (11.5-15.4); Immature Granulocytes % 0.5 % (0-4); Lymphocytes # 0.7 K/mcL (0.6-4.6); Lymphocytes % 7.2 %; Mean Corpuscular HGB Conc 32.2 g/dL (31.6-35.5); Mean Corpuscular Hemoglobin 30.4 pg (28.0-33.3); Mean Corpuscular Volume 94.2 fL (83.0-100.0); Mean Platelet Volume 10.5 fL (9.4-12.4); Monocytes # 1.1 K/mcL (0.0-1.3); Monocytes % 10.8 %; Neutrophils # 8.2 K/mcL (1.6-8.9); Platelet Count 141 K/mcL (140-400); Red Blood Count 3.82 M/mcL (3.82-4.97); Segmented Neutrophils % 81.1 %
[2016-12-31 01:43] LABS: Calcium 9.7 mg/dL (8.6-10.8); Potassium 4.2 mEq/L (3.5-4.5)
[2016-12-31] MEDS: *HR* Morphine 2 MG/ML SYRINGE IVP PRN ×2 (08:20→17:25)
[2016-12-31] MEDS: Metoprolol XL (24 HR) Succ 25 MG TAB.ER.24H PO SCH (08:21)
--- NOTE | 2016-12-31 13:22 | Internal Med Progress Note ---
Date of Encounter: 12/31/16 Time of Encounter: 13:20 - Assessment and plan (1) Hip fracture Current Visit: Yes Status: Acute Assessment and plan: Acute right hip fracture status post fall. Orthopedics evaluation appreciated, patient is noted to have displaced right hip fracture, plan for right hip hemiarthroplasty today. Pain control with when necessary IV morphine and oral Percocet. Supportive care. Patient has been cleared with moderate risk by cardiology. Qualifiers: Encounter type: initial encounter Fracture type: closed Laterality: right Qualified Code(s): S72.001A - Fracture of unspecified part of neck of right femur, initial encounter for closed fracture (2) CKD (chronic kidney disease) Current Visit: Yes Status: Chronic Assessment and plan: Serum creatinine noted to be slightly worsening from baseline, likely related to poor oral intake and dehydration. Will start gentle IV hydration. Continue to monitor serum creatinine. Qualifiers: Chronic kidney disease stage: stage 3 (moderate) Qualified Code(s): N18.3 - Chronic kidney disease, stage 3 (moderate) (3) Atrial fibrillation Current Visit: Yes Status: Chronic Assessment and plan: Rate controlled. Continue beta janae. Continue IV heparin drip for anticoagulation pending surgery when oral anticoagulation will be resumed. Qualifiers: Atrial fibrillation type: chronic Qualified Code(s): I48.2 - Chronic atrial fibrillation (4) Non-ischemic cardiomyopathy Current Visit: Yes Status: Chronic Assessment and plan: Cardiology consult appreciated. Continue home medications, currently not in acute exacerbation of CHF. (5) Syncope Current Visit: Yes Status: Acute Qualifiers: Syncope type: unspecified Qualified Code(s): R55 - Syncope and collapse (6) Hypertension Current Visit: Yes Status: Chronic Qualifiers: Hypertension type: essential hypertension Qualified Code(s): I10 - Essential (primary) hypertension - Subjective Interval history: Continues to have poor appetite, slight rise in creatinine; right hip fracture noted to be displaced, awaiting hemiarthroplasty today; on IV Heparin drip. Right hip pain controlled; - Constitutional Vitals: Temp Pulse Resp BP Pulse Ox 97.5 F L 68 16 121/67 95 12/31/16 06:51 12/31/16 06:51 12/31/16 06:51 12/31/16 06:51 12/31/16 06:51 General appearance: Present: cachectic, A&O X 3, answers questions appropriately - Respiratory Respiratory exam: Present: CTAB. Absent: accessory muscle use, rales, rhonchi, wheezes - Cardiovascular Cardiovascular exam: Present: irregular rhythm, +S1, +S2. Absent: diastolic murmur, gallop, rubs, systolic murmur - GI/Abdominal GI/Abdominal exam: Present: normal bowel sounds, soft, no peritoneal signs. Absent: distended, tenderness Internal Medicine: Result - Labs CBC & Chem 7: 12/31/16 00:56 12/31/16 00:56 Labs: Short CBC 12/30/16 12/31/16 Range/Units 16:43 00:56 WBC 12.1 H 10.1 (4.3-11.1) K/mcL Hgb 11.9 11.6 (11.5-15.4) g/dL Hct 36.4 36.0 (35.3-44.9) % Plt Count 171 141 (140-400) K/mcL Neutrophils # 8.2 (1.6-8.9) K/mcL BMP 12/31/16 00:56 Sodium 136 Potassium 4.2 Chloride 104 Carbon Dioxide 21 BUN 40 H Creatinine 1.64 H Glucose 123 H Calcium 9.7 - ABG Interpretation ABG results: PT/INR, D-dimer PT 14.1 Seconds (9.4-12.1) H 12/30/16 16:43 - VTE Documentation of Mechanical Device: Intermittent pneumatic compression device Consult Discharge Plan - Plan Referrals: Rod Russell MD [Primary Care Provider] -
[2016-12-31] MEDS ORDERED: 0.9 % Sodium Chloride 1,000 ML IVC SCH ×2 (13:30)
[2016-12-31] MEDS ORDERED: *HR* FentaNYL (PF) 100 MCG/2 ML VIAL ONE (20:32)
[2016-12-31] MEDS ORDERED: *HR* Succinylcholine 200 MG/10 ML VIAL IVP ONE (20:32)
[2016-12-31] MEDS ORDERED: *HR* Etomidate 40 MG/20 ML VIAL IVP ONE (20:32)
[2016-12-31] MEDS ORDERED: Lidocaine -MPF 4% 5 ML AMPUL ONE (20:32)
[2016-12-31] MEDS ORDERED: *HR* Rocuronium Bromide 50 MG/5 ML VIAL ONE (20:32)
[2016-12-31] MEDS ORDERED: Lidocaine -MPF 2% 2 ML VIAL ONE ×2 (20:32→20:33)
[2016-12-31] MEDS ORDERED: *HR* Propofol 200 MG/20 ML VIAL IVP ONE (20:33)
--- NOTE | 2016-12-31 21:05 | Anesthesia Evaluation PreOp ---
Date of Encounter: 01/01/17 Time of Encounter: 21:49 - Past History Planned Operation: R-James Hip Arthoplasty Cardiac History: HTN (maintained on Metoprolol, Chlorthalidone), Arrhythmia ( AFib anticoagulated on Eliqus. Rate controlled on Metoprolol), Other (Non- ischemic Cardiomyopathy. LVEF 35-40% per Cardiology Note dated 12/29/2016. Moderate TR. Moderate MR & Mild MS (though Cardiology noted it appears worse than mild by gradient). Mild PulmHtn) Pulmonary History: Denies Any Significant HX INSIDE CHANNEL ACCOUNT MANAGER History: Seizures (??. EVauation in 2013 for LOC changes & started on Anti- seizure meds [Kepra, Dilantin] but pt did not like the way they made her feel and has been off them for >2 months ago. Questionable compliance with anti-Sz med Zonegram. Prior MRI & EEGs NEGative for Seizure activity), Syncope (Fall precipitated by presumed Syncope. Syncopal w/u by Cardiology as recently as 2016.), Other (Anxiety) Other Medical History: Renal (Stage 3 CKD) Anesthesia History: No Prior Anesthetic Complications, Past Anesthesia (Hyster, PaceMaker, Thyroidectomy) Alcohol Use: none Drug use: none Medications and Allergies Potassium Chloride 10 meq PO DAILY 06/12/15 [History] Chlorthalidone 25 mg PO DAILY 06/16/15 [History] Apixaban [Eliquis] 2.5 mg PO BID 08/11/16 [History] Acetaminophen [Tylenol] 1,000 mg PO BID PRN 11/13/16 [History] Metoprolol XL (24 HR) Succ [Toprol Xl] 25 mg PO DAILY #30 tab.er.24h 11/24/16 [ Rx] Allergies azithromycin [From Zithromax Z-Kimo] Allergy (Severe, Verified 12/26/16 14:56) Anaphylaxis Sulfa (Sulfonamide Antibiotics) Allergy (Severe, Verified 12/26/16 14:56) Anaphylaxis nitrofurantoin [From Macrodantin] Allergy (Verified 12/26/16 14:58) burning & itching Influenza Virus Vaccines Adverse Reaction (Verified 12/26/16 14:58) See Comments severe side effects - Meds/Allergy Pre-op Review Medications Reviewed: Yes Allergies Reviewed: Yes Beta Blockers on Current Med List: Yes (Metoprolol) If Beta Blockers taken, Date/Time (Last Dose taken): 6/4/17 @ 0821 Anesthesia Results - Labs 12/31/16 00:56 12/31/16 00:56 Laboratory Results WBC 10.1 K/mcL (4.3-11.1) 12/31/16 00:56 RBC 3.82 M/mcL (3.82-4.97) 12/31/16 00:56 Hgb 11.6 g/dL (11.5-15.4) 12/31/16 00:56 Hct 36.0 % (35.3-44.9) 12/31/16 00:56 MCV 94.2 fL (83.0-100.0) 12/31/16 00:56 MCH 30.4 pg (28.0-33.3) 12/31/16 00:56 MCHC 32.2 g/dL (31.6-35.5) 12/31/16 00:56 RDW 13.0 % (11.5-14.5) 12/31/16 00:56 Plt Count 141 K/mcL (140-400) 12/31/16 00:56 MPV 10.5 fL (9.4-12.4) 12/31/16 00:56 Immature Gran % 0.5 % (0-4) 12/31/16 00:56 Seg Neutrophils % 81.1 % 12/31/16 00:56 Lymphocytes % 7.2 % 12/31/16 00:56 Monocytes % 10.8 % 12/31/16 00:56 Eosinophils % 0.2 % 12/31/16 00:56 Basophils % 0.2 % 12/31/16 00:56 Neutrophils # 8.2 K/mcL (1.6-8.9) 12/31/16 00:56 Lymphocytes # 0.7 K/mcL (0.6-4.6) 12/31/16 00:56 Monocytes # 1.1 K/mcL (0.0-1.3) 12/31/16 00:56 Eosinophils # 0.0 K/mcL (0.0-0.6) 12/31/16 00:56 Basophils # 0.0 K/mcL (0.0-0.2) 12/31/16 00:56 Immature Plt Fraction 3.6 % (1.1-6.1) 12/30/16 16:43 PT 14.1 Seconds (9.4-12.1) H 12/30/16 16:43 INR 1.3 12/30/16 16:43 APTT 91.7 Seconds (26.0-36.0) H D 12/31/16 08:17 Sodium 136 mEq/L (136-145) 12/31/16 00:56 Potassium 4.2 mEq/L (3.5-4.5) 12/31/16 00:56 Chloride 104 mEq/L (98-109) 12/31/16 00:56 Carbon Dioxide 21 mEq/L (19-29) 12/31/16 00:56 BUN 40 mg/dL (7-20) H 12/31/16 00:56 Creatinine 1.64 mg/dL (0.57-1.11) H 12/31/16 00:56 Est GFR ( Amer) 36 (> 60) L 12/31/16 00:56 Est GFR (Non-Af Amer) 29 (> 60) L 12/31/16 00:56 BUN/Creatinine Ratio 24 (6-26) 12/31/16 00:56 Glucose 123 mg/dL (70-99) H 12/31/16 00:56 Calculated Osmolality 293 (280-300) 12/31/16 00:56 Calcium 9.7 mg/dL (8.6-10.8) 12/31/16 00:56 Troponin I 0.05 ng/mL (0-0.03) H* 12/30/16 03:27 - Imaging EKG: image reviewed (78bpm V-Paced) Anesthesia Exam Vital Signs Temp Pulse Resp BP Pulse Ox 12/31/16 19:58 98.2 F 67 14 160/71 97 12/31/16 10:26 97.8 F 64 16 128/74 96 12/31/16 06:51 97.5 F L 68 16 121/67 95 12/31/16 03:49 97.2 F L 63 15 117/75 96 12/30/16 23:46 97.6 F 66 15 118/75 97 Intake and Output 12/31/16 12/31/16 12/31/16 07:59 15:59 23:59 Intake Total 78 / 78 142 / 142 Output Total 300 / 300 250 / 250 Balance -222 / -222 -108 / -108 Intake: IV Fluids 78 / 78 142 / 142 Heparin 25,000 UNIT/500 78 / 78 142 / 142 ML D5W 25,000 unit In 500 ml @ 14 UNIT/KG/HR 11. 176 mls/hr IVC .Q24H MARIANA Rx#:[id number] Output: Urine 300 / 300 Urethral (Yo) 300 / 300 Catheter 250 / 250 Height: 5'0" Weight: 88# BMI = 17.2 NPO (# of Hours): MNOc - HEENT Pupil (Motor): Pupils equal, EOMI Mallampati: II Teeth: Edentulous Oral Opening: Greater than 3 - INSIDE CHANNEL ACCOUNT MANAGER LOC: Oriented INSIDE CHANNEL ACCOUNT MANAGER Motor: Normal RUE, Normal LUE, Normal RLE, Normal LLE, Normal Face INSIDE CHANNEL ACCOUNT MANAGER Sensory: Normal: RUE, LUE, RLE, LLE, Face - Cardiac Rhythm: Irregular Murmur: Systolic JVD: No - Pulmonary Breath Sounds: bilateral Clear Respiratory Effort: Symmetrical Anesthesia Assess/Plan ASA Score: 4 (Non-ischmic CM, AFib, Pacemaker, CRI/GFR = 39,) Modified Susan Scale for Level of Consciousness: Cooperative, oriented, and tranquil Monitoring Plan: Standard Monitors, A-Line Recovery Plan: PACU Anes Supervising Prov Stmt: Pt seen/evaluated, R&B Discussed, questions answered and consent obtained. Jorgito Anne MD
[2016-12-31] MEDS ORDERED: Acetaminophen IV 1,000 MG/100 ML INFUS..BTL ONE (22:15)
[2016-12-31] MEDS ORDERED: *HR* Phenylephrine 10 MG/ML VIAL ONE (23:27)
[2016-12-31] MEDS ORDERED: *HR* Labetalol 100 MG/20 ML MDV IVP PRN (23:43)
[2016-12-31] MEDS ORDERED: *HR* Promethazine 25 MG/ML VIAL IVP PRN (23:43)
[2016-12-31] MEDS ORDERED: *HR* HYDROmorphone (PF) 1 MG/ML SYRINGE IVP PRN (23:43)
--- NOTE | 2017-01-01 00:05 | Operative Note ---
Date of procedure: 12/31/16 Pre-op diagnosis: Right hip displaced femoral neck fracture Post-op diagnosis: same Procedure: Right hip hemiarthroplasty Implants: [employer] Echo - reduced proximal profile Complications: None Anesthesia: TEJALA Surgeon: Jd Reagan Estimated blood loss (cc): 100 Specimen: Femoral head sent to pathology Condition: stable Disposition: PACU Procedure in Detail: The patient received IV antibiotics in the holding area. She was brought to the operating room, sign in was performed. The patient underwent general anesthesia on the hospital bed. She was then transferred to the OR table in supine position. The patient was positioned in the left lateral decubitus position, supported by pelvic supports. Bony prominences of the left lower extremity were well padded. The right lower extremity was then prepped and draped in usual sterile fashion. A timeout was performed. The level of the greater trochanter was palpated, a 10-12 cm curvilinear posterior incision was made, followed by Bovie dissection. The hip abductor was sharply split in line with its fibers with a curved Victoria scissors, incising the fascia over the gluteus marek also. The Charnley retractors were then positioned, making sure all not to go too deeply, to protect the sciatic nerve. The bursa over the greater trochanter was excised with Bovie electrocautery. The left hip was then internally rotated, putting the short external rotators on stretch. These were taken down from the insertion point with the Bovie cautery, starting from less of a trochanter and going approximately to the femoral neck. The capsule along the posterior femoral neck and head was then T' ed, giving exposure to the fractured femoral head/neck. The head was then removed with a power corkscrew, and cutting the ligamentum teres. The head was measured and a size 46 mm diameter was chosen. The acetabulum was washed out of any bone fragments, and a trial head was placed giving a good fit. Next, the exposed fractured femoral neck was cleaned up with a sagittal saw, and a rongeur. A dust box worker was then used to remove the lateral bone. The canal finder was then inserted. We then started broaching with a press-fit broaches from the [employer] echo tray. Starting with a press-fit 7, and moving up to a press-fit 8, keeping the appropriate anteversion. The lateralizer was used. I kept increasing to a press-fit 11, there was still some toggling. The press-fit 12 could not be advanced. The patient had very thin cortices (Nikolai C); it was decided to use a reduced profile stem. I went back to the press-fit 11 broach for the reduced profile system. Then the #12 reduced profile broach, and this fit well. The trial stem was well fixed with no toggling. The broach was then removed. The canal was irrigated out and suctioned. The [employer] Echo press-fit stem with reduced proximal profile was then opened, using a lateralized 130 degree neck angle and a size 12 pressfit stem, the implant was tapped in place, making sure to keep the correct anteversion. Once well positioned, we trialed with a 46 mm diameter trial head, and a -6 neck length. Stability was checked along with leg length. The leg lengths felt equal, the patient had good extension of the left lower extremity, is able to flex the hip, adduct, and internally rotated up to 60 degrees before the hip started subluxing out. The trial components removed. The acetabulum was copiously irrigated with normal saline once again making sure it was well cleaned out. Next the 46 mm monopolar head was opened with a -6 neck length. This assembled and tapped in place. The hip was reduced, and stability was checked once again. We had good stability. The capsule was then closed with # 2 FiberWire figure of 8 sutures. The leg was placed on Victoria stand, and the short external rotators were reattached to the bone using the FiberWire. The tensor fascia along with the gluteus fascia was closed with FiberWire [id number] sutures and a #1 Vicryl running suture proximally. Once again irrigating the wound with pulse lavage. The deep fat layer was closed with 0 Vicryl, subcutaneous tissues with 2-0 Vicryl simple sutures, and finally the skin was closed with valarie. Sterile dressings were applied. A hip abduction wedge was in place between the patient' s legs. She was then rolled over into supine position and transferred back onto the hospital bed where she was extubated and taken to the recovery room in stable condition.
--- NOTE | 2017-01-01 00:45 | Anesthesia Evaluation Post Op ---
Date of Encounter: 01/01/17 Time of Encounter: 00:44 - Vital Signs Vital Signs: Vital Signs/O2 Sat/Glucose, Most Current Temp Pulse Resp BP Pulse Ox 01/01/17 00:58 98.9 F 71 18 162/90 96 01/01/17 00:48 98.9 F 70 18 152/81 99 01/01/17 00:38 70 18 191/92 100 01/01/17 00:28 70 16 177/97 98 01/01/17 00:18 98.6 F 70 20 158/94 93 - Lungs Lungs: Clear Ascult./Percussion - Airway Airway: Non-obstructed - Cardiovascular Irregular Rate, Baseline Rhythm - Mental Status Mental Status: Alert & Oriented, Answers Appropriately - Pain Pain Scale: 0 Pain Scale used: Numeric (1 - 10) - Nausea Vomiting Nausea Vomiting: Not Present - Hydration Hydration: NPO, Ice chips (declines), Yo catheter - Discharge PostOp Status: Transfer Patient to floor Anes Supervising Prov Stmt: Pt seen/evaluated, VSS and pt has met criteria for discharge to floor.. Jorgito Anne MD
[2017-01-01] MEDS ORDERED: Temazepam 15 MG CAPSULE PO PRN (01:20)
[2017-01-01] MEDS ORDERED: Naloxone 0.4 MG/ML INJ IVP PRN ×2 (01:20)
[2017-01-01] MEDS ORDERED: MOM Conc 10 ML UD.LIQ PO PRN (01:20)
[2017-01-01] MEDS ORDERED: Ondansetron ODT 4 MG TAB.RAPDIS SL PRN (01:20)
[2017-01-01] MEDS ORDERED: Sennosides 8.6 MG TABLET PO PRN (01:20)
[2017-01-01] MEDS: Ondansetron 4 MG/2 ML VIAL IVP PRN ×2 (01:47→10:42)
[2017-01-01] MEDS: 0.9 % Sodium Chloride 1,000 ML IVC SCH ×2 (01:48→21:45)
[2017-01-01] MEDS: ceFAZolin 2,000 MG in D5% in Water 100 ML IVPB SCH ×2 (01:50→08:45)
[2017-01-01] MEDS: *HR* OxyCODONE Immed Rel 5 MG TABLET PO PRN ×3 (05:27→21:44)
[2017-01-01 05:50] LABS: Basophils % 0.1 %; Hematocrit 33.4 % (35.3-44.9); Hemoglobin 10.9 g/dL (11.5-15.4); Immature Granulocytes % 0.7 % (0-4); Lymphocytes # 0.3 K/mcL (0.6-4.6); Lymphocytes % 3.1 %; Mean Corpuscular HGB Conc 32.6 g/dL (31.6-35.5); Mean Corpuscular Hemoglobin 30.4 pg (28.0-33.3); Mean Platelet Volume 10.8 fL (9.4-12.4); Monocytes # 0.6 K/mcL (0.0-1.3); Monocytes % 5.4 %; Neutrophils # 9.7 K/mcL (1.6-8.9); Platelet Count 147 K/mcL (140-400); Red Blood Count 3.59 M/mcL (3.82-4.97); Red Cell Distribution Width 12.8 % (11.5-14.5); Segmented Neutrophils % 90.7 %
[2017-01-01 05:54] LABS: Calcium 8.8 mg/dL (8.6-10.8)
[2017-01-01] MEDS: Multivit/Ca/Min/Fe/FA 1 TAB TABLET PO SCH (08:44)
[2017-01-01] MEDS: Acetaminophen 325 MG TABLET PO PRN (08:45)
[2017-01-01] MEDS: APIXABAN 5 MG TABLET PO SCH ×2 (08:45→21:41)
[2017-01-01] MEDS: Metoprolol XL (24 HR) Succ 25 MG TAB.ER.24H PO SCH (08:45)
[2017-01-01] MEDS: Ascorbic Acid 500 MG TABLET PO SCH ×2 (08:45→18:27)
--- NOTE | 2017-01-01 13:17 | Orthopedics Progress Note ---
Date of Encounter: 01/01/17 Time of Encounter: 12:40 - Assessment and Plan (1) Hip fracture Current Visit: Yes Status: Acute POD#1 s/p right hip hemiarthroplasty Dressings to right hip to be changed tomorrow. Therapy to continue working with patient. WBAT. Continue hip precautions x 6 weeks. Continue DVT prophylaxis. Continue pain control per hospitalist. Awaiting placement to [facility]. Will follow up with Sameera Quigley PA-C in [facility] office on 01/15/17 at 9:00 am. Qualifiers: Encounter type: initial encounter Fracture type: closed Laterality: right Qualified Code(s): S72.001A - Fracture of unspecified part of neck of right femur, initial encounter for closed fracture Subjective Principal diagnosis: POD#1 s/p right hip hemiarthroplasty Interval history: Patient doing well with minimal pain. No events overnight. Denies numbness in extremity, denies calf pain. States therapy has gotten her up out of bed once today and that went well. Objective Vital signs: Vital Signs Temp Pulse Resp BP Pulse Ox 01/01/17 11:41 98.0 F 70 16 115/67 96 01/01/17 10:32 68 20 129/64 99 01/01/17 06:51 97.6 F 68 20 129/64 99 01/01/17 04:15 98.1 F 68 16 133/72 98 01/01/17 03:15 97.7 F 70 16 124/70 100 01/01/17 02:15 97.7 F 70 16 129/75 100 01/01/17 01:45 97.7 F 70 16 148/73 100 01/01/17 01:15 97.7 F 71 16 165/79 100 01/01/17 00:58 98.9 F 71 18 162/90 96 01/01/17 00:48 98.9 F 70 18 152/81 99 01/01/17 00:38 70 18 191/92 100 01/01/17 00:28 70 16 177/97 98 01/01/17 00:18 98.6 F 70 20 158/94 93 12/31/16 19:58 98.2 F 67 14 160/71 97 Intake and Output 12/31/16 01/01/17 01/01/17 23:59 07:59 15:59 Intake Total 200 / 200 Output Total 100 / 100 75 / 75 Balance 100 / 100 -75 / -75 Intake: IV Fluids 100 / 100 Ancef 2,000 MG In 100 / 100 Dextrose 5% 100 ML @ 200 mls/hr IVPB Q8HR [facility] Rx#: [id number] Oral 100 / 100 Output: Emesis 75 / 75 Estimated Blood Loss 100 / 100 Incision: clean and dry (dressings c/d/i with no surrounding erythema or swelling. no calf pain to palpation. good dosiflexion of foot. NV intact.) - Labs CBC & BMP: 01/01/17 05:36 01/01/17 05:36 Labs: Abnormal lab results RBC 3.59 M/mcL (3.82-4.97) L 01/01/17 05:36 Hgb 10.9 g/dL (11.5-15.4) L 01/01/17 05:36 Hct 33.4 % (35.3-44.9) L 01/01/17 05:36 Neutrophils # 9.7 K/mcL (1.6-8.9) H 01/01/17 05:36 Lymphocytes # 0.3 K/mcL (0.6-4.6) L 01/01/17 05:36 PT 14.1 Seconds (9.4-12.1) H 12/30/16 16:43 APTT 91.7 Seconds (26.0-36.0) H D 12/31/16 08:17 BUN 40 mg/dL (7-20) H 01/01/17 05:36 Creatinine 1.62 mg/dL (0.57-1.11) H 01/01/17 05:36 Est GFR ( Amer) 36 (> 60) L 01/01/17 05:36 Est GFR (Non-Af Amer) 30 (> 60) L 01/01/17 05:36 Glucose 137 mg/dL (70-99) H 01/01/17 05:36 Troponin I 0.05 ng/mL (0-0.03) H* 12/30/16 03:27 - VTE Documentation of Mechanical Device: Intermittent pneumatic compression device Consult Discharge Plan - Plan Referrals: Rod Russell MD [Primary Care Provider] -
--- NOTE | 2017-01-01 15:07 | Internal Med Progress Note ---
Date of Encounter: 01/01/17 Time of Encounter: 15:06 - Assessment and plan (1) Hip fracture Current Visit: Yes Status: Acute Assessment and plan: Acute right hip fracture status post fall. Orthopedics evaluation appreciated, patient was noted to have displaced right hip fracture, status post right hip hemiarthroplasty, postoperative day 1. Pain control with when necessary IV morphine and oral Percocet. Local wound and postoperative care per orthopedics. Supportive care. Patient is noted to be on Eliquis for DVT prophylaxis. Physical therapy evaluation noted, recommends placement in extended care facility, to which patient is agreeable. 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 Qualifiers: Encounter type: initial encounter Fracture type: closed Laterality: right Qualified Code(s): S72.001A - Fracture of unspecified part of neck of right femur, initial encounter for closed fracture (2) CKD (chronic kidney disease) Current Visit: Yes Status: Chronic Assessment and plan: Serum creatinine continues to be around 1.6. Continue IV hydration, hold potassium supplements and diuretics. Also noted to have poor oral intake. Continue to monitor serum creatinine. Qualifiers: Chronic kidney disease stage: stage 3 (moderate) Qualified Code(s): N18.3 - Chronic kidney disease, stage 3 (moderate) (3) Atrial fibrillation Current Visit: Yes Status: Chronic Assessment and plan: Rate controlled. Continue beta janae. Continue Eliquis. Qualifiers: Atrial fibrillation type: chronic Qualified Code(s): I48.2 - Chronic atrial fibrillation (4) Non-ischemic cardiomyopathy Current Visit: Yes Status: Chronic Assessment and plan: Cardiology consult appreciated. Continue home medications, currently not in acute exacerbation of CHF. (5) Syncope Current Visit: Yes Status: Acute Assessment and plan: Underwent full workup recently with no definitive diagnosis. We will continue Zonesamide per Neurology recommendations, for seizure prevention. Qualifiers: Syncope type: unspecified Qualified Code(s): R55 - Syncope and collapse (6) Hypertension Current Visit: Yes Status: Chronic Qualifiers: Hypertension type: essential hypertension Qualified Code(s): I10 - Essential (primary) hypertension - Subjective Interval history: Reports severe right hip pain, requests pain medication; underwent right hip surgery yesterday; able to participate with PT; had nausea and vomiting this morning, resolved now; - Constitutional Vitals: Temp Pulse Resp BP Pulse Ox 98.0 F 70 16 115/67 96 01/01/17 11:41 01/01/17 11:41 01/01/17 11:41 01/01/17 11:41 01/01/17 11:41 General appearance: Present: cachectic, A&O X 3, answers questions appropriately - Respiratory Respiratory exam: Present: CTAB (anterolaterally). Absent: accessory muscle use , rales, rhonchi, wheezes - Cardiovascular Cardiovascular exam: Present: irregular rhythm, +S1, +S2. Absent: diastolic murmur, gallop, rubs, systolic murmur Internal Medicine: Result - Labs CBC & Chem 7: 01/01/17 05:36 01/01/17 05:36 Labs: Short CBC 01/01/17 Range/Units 05:36 WBC 10.7 (4.3-11.1) K/mcL Hgb 10.9 L (11.5-15.4) g/dL Hct 33.4 L (35.3-44.9) % Plt Count 147 (140-400) K/mcL Neutrophils # 9.7 H (1.6-8.9) K/mcL BMP 01/01/17 05:36 Sodium 138 Potassium 4.0 Chloride 106 Carbon Dioxide 20 BUN 40 H Creatinine 1.62 H Glucose 137 H Calcium 8.8 - ABG Interpretation ABG results: PT/INR, D-dimer PT 14.1 Seconds (9.4-12.1) H 12/30/16 16:43 - Impressions Impressions Hip X-Ray 01/01/17 00:00 IMPRESSION: Status post right hip arthroplasty. D/ / Kamar Boss MD / Kamar Boss MD Interpreting Provider: Kamar Boss MD - VTE Documentation of Mechanical Device: Intermittent pneumatic compression device Consult Discharge Plan - Plan Referrals: Rod Russell MD [Primary Care Provider] -
[2017-01-01] MEDS: *HR* Morphine 2 MG/ML SYRINGE IVP PRN (15:20)
--- NOTE | 2017-01-01 16:17 | Electrocardiograph Report ---
[place] [id number] Test Date: 2017-01-01 Pat Name: Evangelina Canales Department: 114 Room: [facility] Gender: F Molder Hand: FLACO : 1925 Requested By: Linda Farias Order Number: [id number] Reading MD: Toña Castaneda Measurements Intervals [place] Rate: 70 P: NV: 0 QRS: 220 QRSD: 142 T: 27 QT: 477 QTc: 497 Interpretive Statements ELECTRONIC VENTRICULAR PACEMAKER ABNORMAL RHYTHM ECG Electronically Signed On 01-01-2017 16:15:53 EDT by Toña Castaneda
[2017-01-02] MEDS: Acetaminophen 325 MG TABLET PO PRN ×2 (02:13→09:07)
[2017-01-02] MEDS: *HR* OxyCODONE Immed Rel 5 MG TABLET PO PRN (05:24)
[2017-01-02 05:39] LABS: Eosinophils % 0.1 %; Hematocrit 28.9 % (35.3-44.9); Hemoglobin 9.7 g/dL (11.5-15.4); Immature Granulocytes % 0.8 % (0-4); Lymphocytes % 6.1 %; Mean Corpuscular HGB Conc 33.6 g/dL (31.6-35.5); Mean Corpuscular Hemoglobin 30.6 pg (28.0-33.3); Mean Corpuscular Volume 91.2 fL (83.0-100.0); Mean Platelet Volume 10.6 fL (9.4-12.4); Monocytes % 9.5 %; Platelet Count 159 K/mcL (140-400); Red Blood Count 3.17 M/mcL (3.82-4.97); Red Cell Distribution Width 12.7 % (11.5-14.5); Segmented Neutrophils % 83.5 %
[2017-01-02 05:40] LABS: Lymphocytes # 0.6 K/mcL (0.6-4.6); Monocytes # 0.9 K/mcL (0.0-1.3); Neutrophils # 8.2 K/mcL (1.6-8.9)
[2017-01-02 06:02] LABS: Calcium 8.8 mg/dL (8.6-10.8); Potassium 3.7 mEq/L (3.5-4.5)
[2017-01-02] MEDS: *HR* Morphine 2 MG/ML SYRINGE IVP PRN (08:38)
[2017-01-02] MEDS: Ascorbic Acid 500 MG TABLET PO SCH (08:38)
[2017-01-02] MEDS: Multivit/Ca/Min/Fe/FA 1 TAB TABLET PO SCH (08:39)
[2017-01-02] MEDS: Metoprolol XL (24 HR) Succ 25 MG TAB.ER.24H PO SCH (08:39)
[2017-01-02] MEDS: APIXABAN 5 MG TABLET PO SCH (08:39)
--- NOTE | 2017-01-02 09:23 | Discharge Summary ---
Date of Encounter: 01/02/17 Time of Encounter: 09:17 - Discharge Diagnosis (1) Elevated troponin Priority: Secondary Status: Acute (2) Hip fracture Priority: Primary Status: Acute Qualifiers: Encounter type: initial encounter Fracture type: closed Laterality: right Qualified Code(s): S72.001A - Fracture of unspecified part of neck of right femur, initial encounter for closed fracture (3) Atrial fibrillation Priority: Secondary Status: Chronic Qualifiers: Atrial fibrillation type: chronic Qualified Code(s): I48.2 - Chronic atrial fibrillation (4) CKD (chronic kidney disease) Priority: Secondary Status: Chronic Qualifiers: Chronic kidney disease stage: stage 3 (moderate) Qualified Code(s): N18.3 - Chronic kidney disease, stage 3 (moderate) (5) Hypertension Priority: Secondary Status: Chronic Qualifiers: Hypertension type: essential hypertension Qualified Code(s): I10 - Essential (primary) hypertension (6) Non-ischemic cardiomyopathy Priority: Secondary Status: Chronic (7) DVT prophylaxis Priority: Secondary Status: Acute - Discharge Medications Prescriptions: Ascorbic Acid [Vitamin C] 500 mg PO BIDWM 30 Days Docusate [Colace] 100 mg PO BID PRN #20 capsule PRN Reason: Constipation Ferrous Sulfate 325 mg PO BIDWM 30 Days Multivit/Ca/Min/Fe/FA [Thera M Plus] 1 tab PO DAILY #30 tablet OxyCODONE Immed Rel [Roxicodone 5 MG] 5 mg PO Q6HR PRN #20 tablet PRN Reason: Moderate Pain (4-6) Zonisamide [Zonegran] 100 mg PO DAILY 30 Days Home Medications: Potassium Chloride 10 meq PO DAILY 06/12/15 [History] Chlorthalidone 25 mg PO DAILY 06/16/15 [History] Apixaban [Eliquis] 2.5 mg PO BID 08/11/16 [History] Acetaminophen [Tylenol] 1,000 mg PO BID PRN 11/13/16 [History] Metoprolol XL (24 HR) Succ [Toprol Xl] 25 mg PO DAILY #30 tab.er.24h 11/24/16 [ Rx] Ascorbic Acid [Vitamin C] 500 mg PO BIDWM 30 Days 01/02/17 [Rx] Docusate [Colace] 100 mg PO BID PRN #20 capsule 01/02/17 [Rx] Ferrous Sulfate 325 mg PO BIDWM 30 Days 01/02/17 [Rx] Multivit/Ca/Min/Fe/FA [Thera M Plus] 1 tab PO DAILY #30 tablet 01/02/17 [Rx] OxyCODONE Immed Rel [Roxicodone 5 MG] 5 mg PO Q6HR PRN #20 tablet 01/02/17 [Rx] Zonisamide [Zonegran] 100 mg PO DAILY 30 Days 01/02/17 [Rx] Allergies/Adverse Reactions: Allergies azithromycin [From Zithromax Z-Kimo] Allergy (Severe, Verified 12/26/16 14:56) Anaphylaxis Sulfa (Sulfonamide Antibiotics) Allergy (Severe, Verified 12/26/16 14:56) Anaphylaxis nitrofurantoin [From Macrodantin] Allergy (Verified 12/26/16 14:58) burning & itching Influenza Virus Vaccines Adverse Reaction (Verified 12/26/16 14:58) See Comments severe side effects Procedures/tests Complete & Pending: Procedures Performed prior 72 hours Category Date Time Status ECG 12 lead ECG [ECG] Routine Y 01/01/17 06:09 Completed Date of admission: 12/29/16 17:44 Primary care physician: Rod Russell MD Consults: 12/29/16 18:23 Consult to Cardiology [CONS] Routine Comment: Consulting Provider: Cardiology Karine Reason for Consult: Pre-surgical clearance. 89F with right hip fracture, Afib, non-ischemic cardiomyopathy, syncope with recent work up. Call Completed: No 01/01/17 01:20 Consult to Nurse Navigator [CONS] Routine Comment: ortho navigator Consult to Occupational Therapy [CONS] Routine Comment: Evaluate, develop and implement POC Reason for Consult: total hip replacement Consult to Physical Therapy [CONS] Routine Comment: Evaluate, develop and implement POC Reason for Consult: total hip replacement Consult to Party Demonstrator [CONS] Routine Reason for SW Consult: post op joint replacement RT Post Op Consult [CONS] Routine Discharging clinician: Darrell Parish Anticipated date of discharge: 01/02/17 - Patient Status Disposition: Transfer SNF Condition: Fair Functional capacity at discharge: wheelchair bound Overall status at discharge: patient is progressing back to baseline - Discharge Instructions Follow Up With: Rod Russell MD [Primary Care Provider] - Additional Instructions: Follow up with orthopedic surgery. Follow up with nephrology. Follow up with PCP. Follow up with plastics fabrication supervisor. - Diet and Activity Activity: as per physical therapy Diet: advance to your usual diet Interval History: EKG shows ventricular paced rhythm with PVCs. Labs reviewed-serum creatinine elevated, consistent with chronic kidney disease, at baseline. Syncope- recurrent. Patient was recently admitted and evaluated with no definitive diagnosis. Seen by cardiology during previous admission, no events on telemetry monitoring, patient does have ICD/pacemaker in situ. Seen by neurology during previous admission, underwent EEG which was normal, recommended to be started on Zonegram, however patient claims she did not receive any prescription for this and was not taking it at home. Was considered as a moderate risk patient for this moderate risk surgery. No active chest pain. Known NICMP, LVEF improved per reports, most recent 35-40%. Patient underwent surgery for her hip fracture, see report below. Date of procedure: 12/31/16 Pre-op diagnosis: Right hip displaced femoral neck fracture Post-op diagnosis: same Procedure: Right hip hemiarthroplasty Implants: [employer] Echo - reduced proximal profile Complications: None Anesthesia: GETA Surgeon: Jd Reagan Estimated blood loss (cc): 100 Specimen: Femoral head sent to pathology Condition: stable Disposition: PACU Procedure in Detail: The patient received IV antibiotics in the holding area. She was brought to the operating room, sign in was performed. The patient underwent general anesthesia on the hospital bed. She was then transferred to the OR table in supine position. The patient was positioned in the left lateral decubitus position, supported by pelvic supports. Bony prominences of the left lower extremity were well padded. The right lower extremity was then prepped and draped in usual sterile fashion. A timeout was performed. The level of the greater trochanter was palpated, a 10-12 cm curvilinear posterior incision was made, followed by Bovie dissection. The hip abductor was sharply split in line with its fibers with a curved Victoria scissors, incising the fascia over the gluteus marek also. The Charnley retractors were then positioned, making sure all not to go too deeply, to protect the sciatic nerve. The bursa over the greater trochanter was excised with Bovie electrocautery. The left hip was then internally rotated, putting the short external rotators on stretch. These were taken down from the insertion point with the Bovie cautery, starting from less of a trochanter and going approximately to the femoral neck. The capsule along the posterior femoral neck and head was then T' ed, giving exposure to the fractured femoral head/neck. The head was then removed with a power corkscrew, and cutting the ligamentum teres. The head was measured and a size 46 mm diameter was chosen. The acetabulum was washed out of any bone fragments, and a trial head was placed giving a good fit. Next, the exposed fractured femoral neck was cleaned up with a sagittal saw, and a rongeur. A wooden box maker was then used to remove the lateral bone. The canal finder was then inserted. We then started broaching with a press-fit broaches from the [employer] echo tray. Starting with a press-fit 7, and moving up to a press-fit 8, keeping the appropriate anteversion. The lateralizer was used. I kept increasing to a press-fit 11, there was still some toggling. The press-fit 12 could not be advanced. The patient had very thin cortices ([place] C); it was decided to use a reduced profile stem. I went back to the press-fit 11 broach for the reduced profile system. Then the #12 reduced profile broach, and this fit well. The trial stem was well fixed with no toggling. The broach was then removed. The canal was irrigated out and suctioned. The [employer] Echo press-fit stem with reduced proximal profile was then opened, using a lateralized 130 degree neck angle and a size 12 pressfit stem, the implant was tapped in place, making sure to keep the correct anteversion. Once well positioned, we trialed with a 46 mm diameter trial head, and a -6 neck length. Stability was checked along with leg length. The leg lengths felt equal, the patient had good extension of the left lower extremity, is able to flex the hip, adduct, and internally rotated up to 60 degrees before the hip started subluxing out. The trial components removed. The acetabulum was copiously irrigated with normal saline once again making sure it was well cleaned out. Next the 46 mm monopolar head was opened with a -6 neck length. This assembled and tapped in place. The hip was reduced, and stability was checked once again. We had good stability. The capsule was then closed with # 2 FiberWire figure of 8 sutures. The leg was placed on Victoria stand, and the short external rotators were reattached to the bone using the FiberWire. The tensor fascia along with the gluteus fascia was closed with FiberWire [id number] sutures and a #1 Vicryl running suture proximally. Once again irrigating the wound with pulse lavage. The deep fat layer was closed with 0 Vicryl, subcutaneous tissues with 2-0 Vicryl simple sutures, and finally the skin was closed with valarie. Sterile dressings were applied. A hip abduction wedge was in place between the patient' s legs. She was then rolled over into supine position and transferred back onto the hospital bed where she was extubated and taken to the recovery room in stable condition. She tolerated the procedure well, will be discharged to [facility] for continuity of care. Kidney function is at her baseline. D/W patient. Hospital course: Ms. Canales is a 89 year old female with atrial fibrillation on Eliquis, congestive heart failure, nonischemic cardiomyopathy with pacemaker and AICD, seizure disorder, chronic kidney disease, history of TIA who was transferred from the [place] ED after having a syncopal episode and breaking her right hip. Patient does not recall what happened. Per records from the [place] ED, patient was in a store with her health aide and lost consciousness falling against the grocery cart. Health aide was able to help patient to the floor, and patient did not hit her head per the report. Evaluation in the [place] ED included a hip x -ray which showed an acute fracture of the right femoral neck. Chest x-ray showed no acute cardiopulmonary disease, cardiomegaly, and COPD. EKG showed electronic ventricular paced rhythm with heart rate of 78. Creatinine was 1.62 , down from most recent previous value, and consistent with her baseline. Troponin was 0.04. Patient was hospitalized in October for syncope, and had cardiology evaluation as well as neurological evaluation, no cause was identified at that time. On exam, patient alert and oriented, in no distress. Heart had irregular rhythm with ilene. Lungs were clear. Right leg was externally rotated with tenderness over right hip. - Time Spent with Patient Total time spent providing and/or coordinating discharge services: Greater than 30 minutes - Constitutional Vitals: Temp Pulse Resp BP Pulse Ox 98.6 F 70 17 150/73 97 01/02/17 04:03 01/02/17 04:03 01/02/17 04:03 01/02/17 04:03 01/02/17 04:03 General appearance: Present: cachectic, cooperative, A&O X 3, pleasant, answers questions appropriately - Head Head exam: Present: atraumatic, normocephalic - Eye Eye exam: Present: PERRL, conjuntiva pink, sclera anicteric Pupils: Present: PERRL - Neck Neck exam general surgery: Present: supple, trachea midline. Absent: lymphadenopathy - Respiratory Respiratory exam: Present: CTAB. Absent: accessory muscle use, rales, rhonchi, wheezes - Cardiovascular Cardiovascular exam: Present: RRR, +S1, +S2. Absent: diastolic murmur, gallop, rubs, systolic murmur - GI/Abdominal GI/Abdominal exam: Present: normal bowel sounds, soft, no peritoneal signs. Absent: distended, tenderness - Extremities Exam Extremities exam: Present: warm, radial pulses palpable and symetrical. Absent : calf tenderness, cyanotic, pedal edema - Neurological Exam Neurological exam: Present: CN II-XII intact, oriented X3, no focal deficits. Absent: pronater drift, facial droop, speech deficit - Skin Skin exam: Present: dry, intact - VTE Documentation of Mechanical Device: Intermittent pneumatic compression device
[2017-01-02 09:29] VITALS: BP 139/74
--- NOTE | 2017-01-02 09:36 | Physician Discharge Referral ---
ExtendedCare Referral Info Transfer To: [facility] Institutional Level of Care: Skilled - Diagnosis (1) Elevated troponin Status: Acute (2) Hip fracture Status: Acute (3) Atrial fibrillation Status: Chronic (4) CKD (chronic kidney disease) Status: Chronic (5) Hypertension Status: Chronic (6) Non-ischemic cardiomyopathy Status: Chronic (7) DVT prophylaxis Status: Acute - Transfer Medications Prescriptions: Ascorbic Acid [Vitamin C] 500 mg PO BIDWM 30 Days Docusate [Colace] 100 mg PO BID PRN #20 capsule PRN Reason: Constipation Ferrous Sulfate 325 mg PO BIDWM 30 Days Multivit/Ca/Min/Fe/FA [Thera M Plus] 1 tab PO DAILY #30 tablet OxyCODONE Immed Rel [Roxicodone 5 MG] 5 mg PO Q6HR PRN #20 tablet PRN Reason: Moderate Pain (4-6) Zonisamide [Zonegran] 100 mg PO DAILY 30 Days Home Medications: Potassium Chloride 10 meq PO DAILY 06/12/15 [History] Chlorthalidone 25 mg PO DAILY 06/16/15 [History] Apixaban [Eliquis] 2.5 mg PO BID 08/11/16 [History] Acetaminophen [Tylenol] 1,000 mg PO BID PRN 11/13/16 [History] Metoprolol XL (24 HR) Succ [Toprol Xl] 25 mg PO DAILY #30 tab.er.24h 11/24/16 [ Rx] Ascorbic Acid [Vitamin C] 500 mg PO BIDWM 30 Days 01/02/17 [Rx] Docusate [Colace] 100 mg PO BID PRN #20 capsule 01/02/17 [Rx] Ferrous Sulfate 325 mg PO BIDWM 30 Days 01/02/17 [Rx] Multivit/Ca/Min/Fe/FA [Thera M Plus] 1 tab PO DAILY #30 tablet 01/02/17 [Rx] OxyCODONE Immed Rel [Roxicodone 5 MG] 5 mg PO Q6HR PRN #20 tablet 01/02/17 [Rx] Zonisamide [Zonegran] 100 mg PO DAILY 30 Days 01/02/17 [Rx] Allergies/Adverse Reactions: Allergies azithromycin [From Zithromax Z-Kimo] Allergy (Severe, Verified 12/26/16 14:56) Anaphylaxis Sulfa (Sulfonamide Antibiotics) Allergy (Severe, Verified 12/26/16 14:56) Anaphylaxis nitrofurantoin [From Macrodantin] Allergy (Verified 12/26/16 14:58) burning & itching Influenza Virus Vaccines Adverse Reaction (Verified 12/26/16 14:58) See Comments severe side effects - Respiratory Orders Oxygen / L per min (2) Smoking Cessation: Smoking cessation has been advised. For more information, call the [facility] Quit Line at [phone]. - Advance Directives Code Status: Full Code - Mobility Orders Other (As per PT) - Rehabiliation Orders Rehab Potential: Fair Rehab Orders: ROM Exercises, Evaluation for Physical Therapy, Evaluation for Occupational Therapy - Diet Orders Cardiac CERTIFICATION: I certify that the transfer of the above named patient to an Extended Care Facility is necessary for the continuing treatment of the diagnosis listed. The above information is true and accurate reflection of patient's current condition. Confidential - Redisclosure prohibited without a patient's written consent.
== END 2017-01-02 12:12 | DRG 470 ==
LOC: 3NENU → SUATTDRO 17:44
PROVIDERS: ADMIT Internal Medicine; ATTEND Internal Medicine

== ENCOUNTER 2017-05-24 14:10 | Observation (INO) ==
--- NOTE | 2017-05-24 15:23 | Emergency Department Note ---
Disposition Clinical Impression: Generalized weakness Disposition: Admitted As Inpatient Referrals: Rod Russell MD [Primary Care Provider] - Forms: ED Satisfaction Letter Time of Disposition: 18:03 Syncope HPI - General Chief Complaint: ED Dizziness Stated Complaint: Dizziness Time Seen by Provider: 05/24/17 14:19 Source: patient, EMS Limitations: no limitations Nursing Notes Reviewed: Yes Vital Signs Reviewed: Yes - History of Present Illness HPI Narrative: HPI: 89-year-old female by EMS from private residence for "generalized weakness". Patient woke up at 7 AM feeling "weak all over" states that she could not get herself up out of bed called a home healthcare nurse who advised that she should call an ambulance get to the hospital. Patient arrived here awake and alert although feeling tired. Patient states she has been worked up for "dizziness" in the past. Currently Dr. Callahan staff neurologists and [facility] is undergoing workup for her for this condition. She says her symptoms today are "completely different". Patient denies shortness of breath, chest pain, fever, chills, vomiting, change in bowel or bladder habits, trauma, falls, medication changes, ill contacts or recent travel. Patient says she woke up at about 7:00 this morning which is her usual time and just felt weak all over. Patient normally uses a walker when she walks outside the house but uses no assistive devices when inside the house. However she was too weak to get herself up out of bed today. - Related Data Home Medications Medication Instructions Recorded Confirmed Apixaban [Eliquis] 2.5 mg PO BID 08/11/16 04/08/17 Chlorthalidone 25 mg PO QAM 02/17/17 04/08/17 Potassium Chloride [K-Tab ER] 10 meq PO QAM 02/17/17 04/08/17 Furosemide [Lasix] 20 mg PO DAILY 04/08/17 04/08/17 LevETIRAcetam [Keppra] 500 mg PO BID 04/08/17 04/08/17 Previous Rx's Medication Instructions Recorded Metoprolol XL (24 HR) Succ [Toprol 25 mg PO DAILY #30 tab.er.24h 11/24/16 Xl] Zonisamide [Zonegran] 100 mg PO DAILY 30 Days capsule 01/02/17 Allergies Allergy/AdvReac Type Severity Reaction Status Date / Time azithromycin Allergy Severe Anaphylaxis Verified 04/08/17 11:57 [From Zithromax Z-Kimo] Sulfa (Sulfonamide Allergy Severe Anaphylaxis Verified 04/08/17 11:57 Antibiotics) nitrofurantoin Allergy burning & Verified 04/08/17 11:57 [From Macrodantin] itching Influenza Virus Vaccines AdvReac See Verified 04/08/17 11:57 Comments All systems ED: reviewed and negative except as stated. Constitutional: Reports: weakness Past Medical History - Past Medical History Attestation: Yes The following information was validated with the patient. Source: patient Medical history: Reports: atrial fibrillation, CHF, renal disease, seizures, TIA , other Surgical history: Reports: hip replacement, hysterectomy, pacemaker/AICD, thyroidectomy Psychiatric history: Reports: no psych history VIDEOTAPE SALES REPRESENTATIVE history: Reports: no VIDEOTAPE SALES REPRESENTATIVE history, other - Social History Smoking Status: Never smoker Smokeless Tobacco Status: No Alcohol use: Reports: none Drug use: Reports: none Physical Exam - General Limitations: no limitations General appearance: alert, in no apparent distress - Head Head exam: atraumatic, normocephalic - Eye Eye exam: Present: normal appearance, PERRL - ENT ENT exam: normal exam, normal oropharynx, mucous membranes moist - Neck Neck exam: Present: normal inspection, full ROM - Chest Chest inspection: Present: normal inspection, symmetric chest wall rise - Respiratory Respiratory exam: Present: normal lung sounds bilaterally - Cardiovascular Cardiovascular exam: Present: regular rate, normal rhythm - Abdominal Exam Abdominal exam: Present: soft, Non-Tender - Extremities Exam Extremities exam: Present: normal inspection, full ROM - Expanded Lower Extremity Exam Neurovascular/Tendon exam: Present: normal capillary refill - Back Exam Back exam: Present: normal inspection, full ROM - Neurological Exam Neurological exam: Present: alert, oriented X3, CN II-XII intact - Psychiatric Psychiatric exam: Present: normal affect, normal mood - Skin Skin exam: Present: warm, dry, intact Course - Reevaluation(s) Reevaluation #1: The patient was unable to ambulate even with assistance she was too weak. CBC chemistry panel troponin urinalysis within normal limits. Patient is awaiting patient is awaiting chest x-ray. Admission is anticipated. Disposition pending. Time: 17:02 Reevaluation #2: ED workup is complete chest x-ray labs including troponin and urinalysis CBC and chemistry panel within normal limits. Patient try to be ambulated with assistance unable to do so. Discussed the case with hospitalist Shirley Anderson, patient accepted for admission in stable condition. Time: 18:02 Vital Signs Temperature 97.6 F 05/24/17 14:11 Pulse Rate 73 05/24/17 14:11 Respiratory Rate 16 05/24/17 14:11 Blood Pressure 183/94 05/24/17 14:11 O2 Sat by Pulse Oximetry 96 05/24/17 14:11 Temperature 97.6 F 05/24/17 14:11 Pulse Rate 70 05/24/17 17:30 Respiratory Rate 16 05/24/17 17:30 Blood Pressure 161/85 05/24/17 17:30 O2 Sat by Pulse Oximetry 100 05/24/17 17:30 Oxygen Delivery Oxygen Delivery Room Air Syncope - Lab Data Result diagrams: 05/24/17 16:34 05/24/17 15:20 Lab Results 05/24/17 05/24/17 05/24/17 Range/Units 15:20 15:20 16:34 WBC 6.4 (4.3-11.1) K/mcL RBC 4.29 (3.82-4.97) M/mcL Hgb 12.1 (11.5-15.4) g/dL Hct 37.7 (35.3-44.9) % MCV 87.9 D (83.0-100.0) fL MCH 28.2 (28.0-33.3) pg MCHC 32.1 (31.6-35.5) g/dL RDW 14.0 (11.5-14.5) % Plt Count 160 (140-400) K/mcL MPV 10.1 (9.4-12.4) fL Immature Gran % 0.3 (0-4) % Seg Neutrophils % 69.4 % Lymphocytes % 21.4 % Monocytes % 7.6 % Eosinophils % 0.8 % Basophils % 0.5 % Neutrophils # 4.5 (1.6-8.9) K/mcL Lymphocytes # 1.4 (0.6-4.6) K/mcL Monocytes # 0.5 (0.0-1.3) K/mcL Eosinophils # 0.1 (0.0-0.6) K/mcL Basophils # 0.0 (0.0-0.2) K/mcL Sodium 140 (136-145) mEq/L Potassium 4.6 H (3.5-4.5) mEq/L Chloride 107 (98-109) mEq/L Carbon Dioxide 23 (19-29) mEq/L BUN 32 H (7-20) mg/dL Creatinine 1.40 H (0.57-1.11) mg/dL Est GFR ( Amer) 43 L (> 60) Est GFR (Non-Af Amer) 35 L (> 60) BUN/Creatinine Ratio 23 (6-26) Glucose 92 (70-99) mg/dL Calculated Osmolality 297 (280-300) Calcium 9.8 (8.6-10.8) mg/dL Troponin I 0.03 (0-0.03) ng/mL Urine Color (Yellow) Urine Clarity (Clear) Urine pH (5.0-8.0) pH Units Ur Specific Vernon (1.010-1.025) Urine Protein (Neg-Trace) mg/dL Urine Glucose (UA) (Normal) mg/dL Urine Ketones (Negative) mg/dL Urine Blood (Negative) Urine Nitrite (Negative) Urine Bilirubin (Negative) Urine Urobilinogen (Normal) mg/dL Ur Leukocyte Esterase (Negative) Urine Microscopic RBC (0-3) per hpf Urine Microscopic WBC (0-3) per hpf Ur Squamous Epith Cells (None-Few) per lpf Urine Bacteria (None-Few) per hpf Hyaline Casts (None-Few) per lpf 05/24/17 Range/Units 16:53 WBC (4.3-11.1) K/mcL RBC (3.82-4.97) M/mcL Hgb (11.5-15.4) g/dL Hct (35.3-44.9) % MCV (83.0-100.0) fL MCH (28.0-33.3) pg MCHC (31.6-35.5) g/dL RDW (11.5-14.5) % Plt Count (140-400) K/mcL MPV (9.4-12.4) fL Immature Gran % (0-4) % Seg Neutrophils % % Lymphocytes % % Monocytes % % Eosinophils % % Basophils % % Neutrophils # (1.6-8.9) K/mcL Lymphocytes # (0.6-4.6) K/mcL Monocytes # (0.0-1.3) K/mcL Eosinophils # (0.0-0.6) K/mcL Basophils # (0.0-0.2) K/mcL Sodium (136-145) mEq/L Potassium (3.5-4.5) mEq/L Chloride (98-109) mEq/L Carbon Dioxide (19-29) mEq/L BUN (7-20) mg/dL Creatinine (0.57-1.11) mg/dL Est GFR ( Amer) (> 60) Est GFR (Non-Af Amer) (> 60) BUN/Creatinine Ratio (6-26) Glucose (70-99) mg/dL Calculated Osmolality (280-300) Calcium (8.6-10.8) mg/dL Troponin I (0-0.03) ng/mL Urine Color Yellow (Yellow) Urine Clarity Clear (Clear) Urine pH 7.0 (5.0-8.0) pH Units Ur Specific [place] 1.013 (1.010-1.025) Urine Protein Trace (Neg-Trace) mg/dL Urine Glucose (UA) Normal (Normal) mg/dL Urine Ketones Negative (Negative) mg/dL Urine Blood Negative (Negative) Urine Nitrite Negative (Negative) Urine Bilirubin Negative (Negative) Urine Urobilinogen Normal (Normal) mg/dL Ur Leukocyte Esterase Trace H (Negative) Urine Microscopic RBC 0-3 (0-3) per hpf Urine Microscopic WBC 0-3 (0-3) per hpf Ur Squamous Epith Cells Few (None-Few) per lpf Urine Bacteria None Seen (None-Few) per hpf Hyaline Casts None Seen (None-Few) per lpf
[2017-05-24 15:41] LABS: Calcium 9.8 mg/dL (8.6-10.8); Potassium 4.6 mEq/L (3.5-4.5)
[2017-05-24 16:40] LABS: Basophils % 0.5 %; Eosinophils # 0.1 K/mcL (0.0-0.6); Eosinophils % 0.8 %; Hematocrit 37.7 % (35.3-44.9); Hemoglobin 12.1 g/dL (11.5-15.4); Immature Granulocytes % 0.3 % (0-4); Lymphocytes # 1.4 K/mcL (0.6-4.6); Lymphocytes % 21.4 %; Mean Corpuscular HGB Conc 32.1 g/dL (31.6-35.5); Mean Corpuscular Hemoglobin 28.2 pg (28.0-33.3); Mean Platelet Volume 10.1 fL (9.4-12.4); Monocytes # 0.5 K/mcL (0.0-1.3); Monocytes % 7.6 %; Neutrophils # 4.5 K/mcL (1.6-8.9); Platelet Count 160 K/mcL (140-400); Red Blood Count 4.29 M/mcL (3.82-4.97); Segmented Neutrophils % 69.4 %
[2017-05-24 16:41] LABS: Mean Corpuscular Volume 87.9 fL (83.0-100.0)
[2017-05-24 17:20] LABS: Bilirubin,Urine Negative (Negative); Blood,Urine Negative (Negative); Clarity,Urine Clear (Clear); Color,Urine Yellow (Yellow); Glucose,Urine (UA) Normal (Normal); Ketones,Urine Negative (Negative); Leukocyte Esterase,Urine Trace (Negative); Nitrite,Urine Negative (Negative); Protein,Urine Trace mg/dL (Neg-Trace); Specific Gravity,Urine 1.013 (1.010-1.025); Urobilinogen,Urine Normal (Normal)
[2017-05-24 17:24] LABS: Bacteria,Urine None Seen per hpf (None-Few); Hyaline Casts,Urine None Seen per lpf (None-Few); RBC,Urine 0-3 per hpf (0-3); Squamous Epithelial Cell,Urine Few per lpf (None-Few); WBC,Urine 0-3 per hpf (0-3)
[2017-05-24] MEDS ORDERED: Naloxone 0.4 MG/ML INJ IVP PRN (21:43)
[2017-05-24] MEDS ORDERED: *HR* HYDROcodone/Acet 5/325 mg TABLET PO PRN (21:43)
[2017-05-24] MEDS ORDERED: Ondansetron 4 MG/2 ML VIAL IVP PRN (21:43)
[2017-05-24] MEDS ORDERED: Acetaminophen 325 MG TABLET PO PRN (21:43)
--- NOTE | 2017-05-24 22:10 | Internal Med History&Physical ---
Date of Encounter: 05/24/17 Time of Encounter: 19:00 Assessment and Plan (1) TIA (transient ischemic attack) Current visit: Yes Status: Acute Pt. reports syncopal episodes lasting 20-25 minutes with last episode last Sunday. Pt. reports PCP thought these were seizures and placed her on Keppra. Pt. followed by Dr. Holliday in Neurology. Suspect posterior circulation TIA. Placed on Eliquis d/t suspicion of TIA activity. Pacemaker/AICD prevents MRI of head/brain. CT of head/brain ordered to assess for ischemia. Neurology consult ordered. Falls/safety/seizure precautions. Continuous cardiac telemetry. Orthostatic BPs and VS ordered. Echocardiogram ordered. Bilateral carotid Doppler duplex imaging ordered. Pt. to be monitored closely for signs of neurological decline. Pt. high risk for further morbidity d/t current sx, hx, and risk factors. Observation. Qualifiers: Transient cerebral ischemia type: other Qualified Code(s): G45.8 - Other transient cerebral ischemic attacks and related syndromes (2) Dizziness Current visit: Yes Status: Acute Acute dizziness since this morning. Orthostatic BPs and VS. Falls/safety precautions. (3) Generalized weakness Current visit: Yes Status: Acute Pt reports generalized weakness that began this morning. Had difficulty getting out of bed. PT/OT consults ordered to assess for ambulation stability for post- discharge needs. SW consult to assess for home needs. Falls/safety precautions. (4) CHF (congestive heart failure) Current visit: Yes Status: Chronic Hx of chronic CHF. Stable. Patient currently asymptomatic. Monitor pt. for fluid overload, edema, and SOB. Qualifiers: Congestive heart failure type: unspecified congestive heart failure type Congestive heart failure chronicity: chronic Qualified Code(s): I50.9 - Heart failure, unspecified (5) Atrial fibrillation Current visit: Yes Status: Chronic Hx of chronic atrial fibrillation. Pacemaker/AICD in place. Pt. taking Eliquis for anticoagulation. Continuous cardiac telemetry. Initial troponin 0.03. Will trend x2. Qualifiers: Atrial fibrillation type: chronic Qualified Code(s): I48.2 - Chronic atrial fibrillation (6) CKD (chronic kidney disease) Current visit: Yes Status: Chronic Hx of chronic CKD, stage III. Current GFR 35. Will use IV fluids judiciously if warranted. Will avoid nephrotoxic agents. Monitor I&O and daily weight. Qualifiers: Chronic kidney disease stage: stage 3 (moderate) Qualified Code(s): N18.3 - Chronic kidney disease, stage 3 (moderate) (7) HTN (hypertension) Current visit: Yes Status: Chronic Hx of chronic HTN. Monitor pt. and VS. Hold metoprolol to allow for permissive HTN d/t current sx of TIA w/syncope. Qualifiers: Hypertension type: essential hypertension Qualified Code(s): I10 - Essential (primary) hypertension (8) DVT prophylaxis Current visit: Yes Status: Acute Continue patient's Eliquis for DVT prophylaxis. Will monitor patient for signs of bleeding. Hgb/Hct WNL. Fecal hemoccult ordered d/t pts. report of previous rectal bleeding. Internal Medicine - H&P: HPI Chief complaint: Generalized weakness/Dizziness/Syncope Admitted From: Emergency Dept Plans for Post Hospital Care: Home History of present illness: Ms. Canales is a 89 year old female with history of atrial fibrillation, CHF, renal disease, seizures, and TIA presents from the ED today with chief complaint of generalized weakness and dizziness that began this morning when she tried to get out of bed. Patient also reports history of syncopal episodes lasting 20-25 minutes, with last episode last Sunday. Sensation states she felt fine last night before going to bed. Patient reports pacemaker/AICD and is on Eliquis for anticoagulation d/t atrial fibrillation. States she had two days of blood in stool after being placed on Eliquis but now resolved. Patient reports generalized weakness, dizziness, nausea, and syncopal episodes but denies recent illness, fever, chills, vomiting, changes in vision, abdominal pain, diarrhea, constipation, headache, cough. Past Med Surg Social Fam HX - Past Medical History Source: patient, old records reviewed Medical history: atrial fibrillation, CHF, renal disease, seizures, syncope, TIA , other Psychiatric history: no psych history - Past Surgical History Surgical History: hip replacement, hysterectomy, pacemaker/AICD, thyroidectomy - Social History Smoking Status: Never smoker Smokeless Tobacco Status: No Alcohol use: none Drug use: none Current living situation: Home Activity Level: Independent ambulation, Uses cane/walker Recent Out of Country Travel Within the Last 8 Weeks: No Exposure or Possible Exposure to Illness During Travel: No - Family History Mother Race: Family Member Ethnicity: Non- Living Status: Age at : 88 Cause of : Ovarian cancer Hx Family Cancer: Yes (Ovarian) Father Race: Family Member Ethnicity: Non- Living Status: Age at : 75 Cause of : Alzheimer's disease Hx Family Neurologic Disorders: Yes (Alzheimer's disease) Brother Race: Family Member Ethnicity: Non- Living Status: Age at : 88 Cause of : [place] Hx Family Cardiac Disorders: Yes ([place], CAD, HTN) Sister Race: Family Member Ethnicity: Non- Living Status: Still Living Hx Family Medical Disorders: No Internal Medicine - H&P: Meds Apixaban [Eliquis] 2.5 mg PO BID 08/11/16 [History] Metoprolol XL (24 HR) Succ [Toprol Xl] 25 mg PO DAILY #30 tab.er.24h 11/24/16 [ Rx] Chlorthalidone 25 mg PO QAM 02/17/17 [History] Potassium Chloride [K-Tab ER] 10 meq PO QAM 02/17/17 [History] Cyanocobalamin (Vitamin B-12) [Vitamin B12] 1,000 mcg PO DAILY 05/24/17 [History ] Divalproex (12 HR) [Depakote (12 HR)] 250 mg PO DAILY 05/24/17 [History] 3 Allergy/AdvReac Type Severity Reaction Status Date / Time azithromycin Allergy Severe Anaphylaxis Verified 04/08/17 11:57 [From Zithromax Z-Kimo] Sulfa (Sulfonamide Allergy Severe Anaphylaxis Verified 04/08/17 11:57 Antibiotics) nitrofurantoin Allergy burning & Verified 04/08/17 11:57 [From Macrodantin] itching Influenza Virus Vaccines AdvReac See Verified 04/08/17 11:57 Comments All Systems PM: A 10-system review of systems was performed and is negative for pertinent findings except as documented above in the HPI. - Constitutional Constitutional: as per HPI, falls, no chills, no fever(s), no night sweats - EENT Eyes: no change in vision, no discharge, no pain, no photophobia Ears: no ear discharge, no ear pain, no tinnitus Nose, mouth and throat: no dysphagia, no nasal discharge, no neck pain, no sore throat - Breasts Breasts: as per HPI - Cardiovascular Cardiovascular ROS IM: as per HPI, syncope, no chest pain, no diaphoresis, no dyspnea, no lightheadedness, no palpitations - Respiratory Respiratory: no cough, no dyspnea, no wheezing, no excessive phlegm production - Gastrointestinal Gastrointestinal: as per HPI, nausea, no abdominal pain, no diarrhea, no hematemesis, no hematochezia, no melena, no vomiting - Genitourinary Genitourinary: no change in urinary stream, no dysuria, no flank pain, no hematuria Menstruation: as per HPI, post hysterectomy - Musculoskeletal Musculoskeletal ROS IM: no numbness, no tingling - Integumentary Integumentary IM: no rash, no unusual bruising - Neurological Neurological ROS: as per HPI, dizziness, weakness, no confusion, no convulsions , no focal weakness, no numbness, no tingling, no tremor(s) - Psychiatric Psychiatric: as per HPI - Endocrine Endocrine IM: as per HPI - Hematologic/Lymphatic Hematologic/Lymphatic: no easy bruising - Allergic/Immunologic Allergic/Immunologic: as per HPI - Constitutional Vitals: Temp Pulse Resp BP Pulse Ox 97.8 F 70 16 167/83 98 05/24/17 20:07 05/24/17 20:07 05/24/17 20:07 05/24/17 20:07 05/24/17 20:07 General appearance: Present: cooperative, A&O X 3, pleasant, no acute distress, underweight, answers questions appropriately - Head Head exam: Present: atraumatic, normocephalic - Eye Eye exam: Present: PERRL, conjuntiva pink, sclera anicteric Pupils: Present: PERRL - ENT ENT exam: Present: normal exam, normal external ear exam, normal oropharynx - Neck Neck exam general surgery: Present: normal inspection - Respiratory Respiratory exam: Present: CTAB. Absent: accessory muscle use, rales, rhonchi, wheezes - Cardiovascular Cardiovascular exam: Present: irregular rhythm - GI/Abdominal GI/Abdominal exam: Present: normal bowel sounds, soft, no peritoneal signs. Absent: distended, tenderness - Rectal Rectal exam: Present: deferred - Additional comments: exam deferred. - Extremities Exam Extremities exam: Present: warm, radial pulses palpable and symmetrical. Absent : calf tenderness, cyanotic, pedal edema - Back Exam Back exam: Present: normal inspection - Neurological Exam Neurological exam: Present: CN II-XII intact, oriented X3, no focal deficits. Absent: pronater drift, facial droop, speech deficit - Psychiatric Psychiatric exam: Present: normal affect, normal mood - Skin Skin exam: Present: dry, intact Internal Med - H&P Results - Labs CBC & Chem 7: 05/24/17 16:34 05/24/17 15:20 - EKG Data Prior EKG available for review: no EKG comments: 05/24/17 22:18 EKG dated 05/24/17 shows electronic ventricular pacemaker and abnormal rhythm ECG. - Diagnostic Studies Chest x-ray Additional comments: Impressions Chest X-Ray 05/24/17 15:14 IMPRESSION: Cardiomegaly without acute process. D/ / 05/24/2017 17:15:22 Poncho Barillas MD / cha Interpreting Provider: Poncho Barillas MD
--- NOTE | 2017-05-24 22:17 | Event Note ---
Date of Encounter: 05/24/17 Time of Encounter: 22:17 Patient and examined with nurse practitioner. Agree with that assessment and plan. Suspect posterior circulation TIA. Will get a CT scan of the brain. Allow permissive hypertension.
[2017-05-24] MEDS: Pantoprazole 40 MG VIAL IVP SCH (23:05)
[2017-05-25 04:40] LABS: Basophils % 0.7 %; Eosinophils # 0.1 K/mcL (0.0-0.6); Eosinophils % 1.3 %; Hematocrit 33.7 % (35.3-44.9); Immature Granulocytes % 0.4 % (0-4); Lymphocytes # 0.6 K/mcL (0.6-4.6); Lymphocytes % 11.8 %; Mean Corpuscular HGB Conc 32.6 g/dL (31.6-35.5); Mean Corpuscular Hemoglobin 28.2 pg (28.0-33.3); Mean Corpuscular Volume 86.4 fL (83.0-100.0); Mean Platelet Volume 10.5 fL (9.4-12.4); Monocytes # 0.4 K/mcL (0.0-1.3); Monocytes % 7.2 %; Neutrophils # 4.3 K/mcL (1.6-8.9); Platelet Count 138 K/mcL (140-400); Segmented Neutrophils % 78.6 %
[2017-05-25 04:41] LABS: INR 1.4; Prothrombin Time 15.3 Seconds (9.4-12.1)
[2017-05-25 04:44] LABS: Activated Partial Thrombo Time 27.9 Seconds (26.0-36.0)
[2017-05-25 05:03] LABS: Albumin 3.5 g/dL (3.5-5.0); Albumin/Globulin Ratio 1.1 (1.1-2.2); Bilirubin,Total 1.3 mg/dL (0.2-1.2); Calcium 9.2 mg/dL (8.6-10.8); Chol/HDL Ratio 4.1 (0-4.9); Globulin 3.1 g/dL (2.4-3.5); Magnesium 1.9 mg/dL (1.6-2.6); Potassium 3.8 mEq/L (3.5-4.5); Total Protein 6.6 g/dL (6.0-8.3)
[2017-05-25 05:38] LABS: Hemoglobin A1C 5.7 %
[2017-05-25 07:59] LABS: Hematocrit 35.3 % (35.3-44.9); Hemoglobin 11.7 g/dL (11.5-15.4)
[2017-05-25] MEDS ORDERED: Metoprolol XL (24 HR) Succ 25 MG TAB.ER.24H PO SCH (09:00)
--- NOTE | 2017-05-25 09:04 | Electrocardiograph Report ---
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
[2017-05-25] MEDS: Pantoprazole 40 MG VIAL IVP SCH (11:29)
[2017-05-25] MEDS: Renal Vitamin 1 MG CAPSULE PO SCH (11:29)
[2017-05-25] MEDS: Divalproex (12 HR) 250 MG TABLET PO SCH (11:29)
[2017-05-25] MEDS: APIXABAN 2.5 MG TABLET PO SCH ×2 (11:29→20:12)
--- NOTE | 2017-05-25 12:20 | Neurology - Consult Note ---
Date of Encounter: 05/25/17 Time of Encounter: 12:12 Assessment and Plan (1) Generalized weakness Current Visit: Yes Status: Acute Weakness appears generalized. No associated with muscle pain. She has been feeling weakness on and off but neurological examination certainly non-focal. her speech and mental status appear intact therefore it is unlikely that she had a stroke. The weakness was not associated with other cranial nerve deficits therefore it is unlikely this was secondary to posterior circulation TIA. If posterior circulation is a concern then CTA of head may help with diagnosis. However, posterior circulation TIA will be adequately treated with Eliquis therefore CTA will be of little value in terms of altering treatment. Will recommend checking ESR and CK LDH to rule to muscle disease due to the weakness. a primary form of myopathy is unlikely (2) Seizure disorder Current Visit: No Status: Chronic Please note that the patient being on Depakote is only for empirical reason and seizure disorder is considered less likely. She has not responded to keppra. She is able to tolerate Depakote but that does not seem to help her syncopal spell. Current episode is different than her typical spell and is likely related her other medical/cardiac conditions. Will keep her on Depakote DR 250mg daily. No change. Please continue medical and supportive care. History of Present Illness Chief complaint: generalized weakness HPI: Ms. Canales is a 89 year old female with PMH significant for recurrent syncopal episodes vs seizure disorder, atrial fibrillation, HTN, and CKD who developed generalized weakness lasting about 3 hours. Patient known to me. Has seen her few times for recurrent syncope vs seizure. Has had about 10 syncopal episodes within the last 2 years but has not find definitive cause and was on Keppra for empirical treatment for possible seizures but symptoms are not typical for epilepsy. She was on Keppra 500mg bid in the past and apparently it did not help the episodes. She has had two episodes of syncope since last 2-3 weeks and one week ago i saw her and switched her from keppra to depakote. She had bloody stool on the first day of taking depakote which subsequently cleared up. Yesterday she slept until 11pm and felt weak. She states that she could not raise up her arms and legs and symptoms lasted about 3 hours. She did not lose her consciousness and knew what she felt during the whole event. She agrees that the episode is not similar to what she had before. She thought she might had a stroke. CT of head showed no acute intracranial abnormality. She has atrial fibrillation and is on Eliquis. Carotid artery duplex is pending. Past Med Surg Social Fam HX - Past Medical History Medical history: atrial fibrillation, CHF, renal disease, seizures, syncope, TIA , other Psychiatric history: no psych history - Past Surgical History Surgical History: hip replacement, hysterectomy, pacemaker/AICD, thyroidectomy - Social History Smoking Status: Never smoker Smokeless Tobacco Status: No Alcohol use: none Drug use: none - Family History Mother Race: Family Member Ethnicity: Non- Living Status: Age at : 88 Cause of : Ovarian cancer Hx Family Cancer: Yes (Ovarian) Father Race: Family Member Ethnicity: Non- Living Status: Age at : 75 Cause of : Alzheimer's disease Hx Family Neurologic Disorders: Yes (Alzheimer's disease) Brother Race: Family Member Ethnicity: Non- Living Status: Age at : 88 Cause of : [place] Hx Family Cardiac Disorders: Yes ([place], CAD, HTN) Sister Race: Family Member Ethnicity: Non- Living Status: Still Living Hx Family Medical Disorders: No Medications and Allergies Apixaban [Eliquis] 2.5 mg PO BID 08/11/16 [History] Metoprolol XL (24 HR) Succ [Toprol Xl] 25 mg PO DAILY #30 tab.er.24h 11/24/16 [ Rx] Chlorthalidone 25 mg PO QAM 02/17/17 [History] Potassium Chloride [K-Tab ER] 10 meq PO QAM 02/17/17 [History] Cyanocobalamin (Vitamin B-12) [Vitamin B12] 1,000 mcg PO DAILY 05/24/17 [History ] Divalproex (12 HR) [Depakote (12 HR)] 250 mg PO DAILY 05/24/17 [History] 3 Allergy/AdvReac Type Severity Reaction Status Date / Time azithromycin Allergy Severe Anaphylaxis Verified 04/08/17 11:57 [From Zithromax Z-Kimo] Sulfa (Sulfonamide Allergy Severe Anaphylaxis Verified 04/08/17 11:57 Antibiotics) nitrofurantoin Allergy burning & Verified 04/08/17 11:57 [From Macrodantin] itching Influenza Virus Vaccines AdvReac See Verified 04/08/17 11:57 Comments All Systems: A 10-system review of systems was performed and is negative for pertinent findings except as documented above in the HPI. Physical Examination - Vital Signs Vital Signs: Initial Vital Signs Temp Pulse Resp BP Pulse Ox 97.6 F 73 16 183/94 96 05/24/17 14:11 05/24/17 14:11 05/24/17 14:11 05/24/17 14:11 05/24/17 14:11 - Constitutional General appearance: chronically ill - Neurologic Sensorimotor examination: intact (Grossly intact) Detailed motor examination: grossly full strength in all extremities (Patient admits that she still feels weak but her muscle strength is 5/5 throughout. No focal deficits noted.) Detailed sensory examination: intact (Grossly intact) Posture: other (None) Reflex and gait examination: other (Gait not assessed due to generalized weakness) Reflexes: Biceps: 1+, Triceps: 1+, Brachioradialis: 1+, Patella: 1+ Mental Status Examination: awake, alert, oriented to person, oriented to place, oriented to time, follows commands appropriately, answers questions appropriately, no agnosia, no aphasia, no aproxia Cranial nerve examination: PERRL, EOMI, visual ignacio intact, corneal reflexes brisk symmetrically, sensory to face intact, mastication intact, no facial asymmetry is present, no dysarthria, hearing is intact symmetrically, soft palate elevates bilaterally upon phonation, gag reflex intact, flexes SCM and trapezius muscles symmetrically with full power, tongue protrudes midline, no atrophy or facial fasiculations present Results - Laboratory Findings CBC and BMP: 05/25/17 07:43 05/25/17 04:09 Abnormal lab findings: Abnormal lab results Plt Count 138 K/mcL (140-400) L 05/25/17 04:09 PT 15.3 Seconds (9.4-12.1) H 05/25/17 04:09 BUN 34 mg/dL (7-20) H 05/25/17 04:09 Creatinine 1.52 mg/dL (0.57-1.11) H 05/25/17 04:09 Est GFR ( Amer) 39 (> 60) L 05/25/17 04:09 Est GFR (Non-Af Amer) 32 (> 60) L 05/25/17 04:09 Glucose 102 mg/dL (70-99) H 05/25/17 04:09 Hemoglobin A1c 5.7 % (-5.6) H 05/25/17 04:09 Total Bilirubin 1.3 mg/dL (0.2-1.2) H 05/25/17 04:09 Troponin I 0.04 ng/mL (0-0.03) H* 05/25/17 04:09 LDL Cholesterol, Calc 128 mg/dL (0-99) H 05/25/17 04:09 Ur Leukocyte Esterase Trace (Negative) H 05/24/17 16:53 Consult Discharge Plan - Plan Referrals: Rod Russell MD [Primary Care Provider] -
[2017-05-25 13:11] LABS: Hematocrit 34.2 % (35.3-44.9); Hemoglobin 11.3 g/dL (11.5-15.4)
[2017-05-25 13:15] LABS: Creatine Kinase 56 Units/L (29-168); Lactate Dehydrogenase 232 Units/L (159-327)
--- NOTE | 2017-05-25 16:25 | Internal Med Progress Note ---
Date of Encounter: 05/25/17 Time of Encounter: 08:45 - Assessment and plan (1) TIA (transient ischemic attack) Current Visit: Yes Status: Acute Assessment and plan: Possible TIA - with generalized weakness and dizziness - symptoms now resolved - possibly cardiac arrhythmia due to severe systolic dysfunction/cardiomyopathy and atrial fibrillation History of recurrent syncopal episodes and history of seizure disorder Continue Eliquis, add Zocor CT head - no acute infarct, chronic vascular ischemic changes EKG - paced rhythm, no acute changes Troponin - 0.04, likely due to cardiomyopathy Chest x-ray - cardiomegaly without acute process Carotid Doppler - pending Echocardiogram (11/15/2016) - LVEF 35-40%, global LV systolic dysfunction, severe enlargement of the LA Neurology consult - conditions reviewed Cardiac telemetry, labs in a.m., monitor closely Qualifiers: Transient cerebral ischemia type: other Qualified Code(s): G45.8 - Other transient cerebral ischemic attacks and related syndromes (2) Atrial fibrillation Current Visit: Yes Status: Chronic Assessment and plan: Chronic atrial fibrillation, rate controlled Continue home dose of Toprol-XL, continue anticoagulation with Eliquis Qualifiers: Atrial fibrillation type: chronic Qualified Code(s): I48.2 - Chronic atrial fibrillation (3) CHF (congestive heart failure) Current Visit: Yes Status: Chronic Assessment and plan: Chronic systolic CHF LVEF 35-40% - nonischemic cardiomyopathy, extremely severe enlargement of LA, 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 Qualifiers: Chronic kidney disease stage: stage 3 (moderate) Qualified Code(s): N18.3 - Chronic kidney disease, stage 3 (moderate) (5) Seizure disorder Current Visit: No Status: Chronic Assessment and plan: Continue home dose of Depakote Patient follows up with neurology (6) Hypertension Current Visit: No Status: Chronic Assessment and plan: Essential hypertension, controlled, monitor Continue home dose of Chlorthalidone, Toprol-XL Qualifiers: Hypertension type: essential hypertension Qualified Code(s): I10 - Essential (primary) hypertension (7) DVT prophylaxis Current Visit: Yes Status: Acute Assessment and plan: Continue anticoagulation with Eliquis - Time Spent With Patient 25 - 35 minutes - Subjective Interval history: Examined this morning. Patient is awake and alert. Not in any distress. Denies chest pain or shortness of breath. No fever. Hemodynamically stable. Admitted for generalized weakness and dizziness, initially thought to be TIA. Patient does have history of syncopal episodes. She does follow up regularly with Dr. Holliday neurology. At present patient seems to be at baseline mental status. No focal neurological deficits. No other acute events or complaints. - Constitutional Vitals: Temp Pulse Resp BP Pulse Ox 99.5 F 70 15 153/75 97 05/25/17 15:31 05/25/17 15:31 05/25/17 15:31 05/25/17 15:31 05/25/17 15:31 General appearance: Present: cachectic, cooperative, A&O X 3, pleasant, no acute distress, underweight, answers questions appropriately Exam: Generalized weakness, chronically ill-appearing, frail 89-year-old - Head Head exam: Present: atraumatic - Eye Eye exam: Present: EOMI - ENT ENT exam: Present: mucous membranes moist - Respiratory Respiratory exam: Present: CTAB. Absent: rales, rhonchi, wheezes, tachypnea - Cardiovascular Cardiovascular exam: Present: RRR, +S1, +S2 - GI/Abdominal GI/Abdominal exam: Present: soft. Absent: distended, firm, guarding, tenderness - Extremities Exam Extremities exam: Present: radial pulses palpable and symmetrical. Absent: calf tenderness, cyanotic, pedal edema - Neurological Exam Neurological exam: Present: alert, CN II-XII intact, oriented X3, no focal deficits. Absent: facial droop, speech deficit Internal Medicine: Result - Labs CBC & Chem 7: 05/25/17 12:44 05/25/17 04:09 Labs: Short CBC 05/25/17 05/25/17 05/25/17 Range/Units 04:09 07:43 12:44 WBC 5.4 (4.3-11.1) K/mcL Hgb 11.0 L 11.7 11.3 L (11.5-15.4) g/dL Hct 33.7 L 35.3 34.2 L (35.3-44.9) % Plt Count 138 L (140-400) K/mcL Neutrophils # 4.3 (1.6-8.9) K/mcL BMP 05/25/17 04:09 Sodium 139 Potassium 3.8 Chloride 106 Carbon Dioxide 23 BUN 34 H Creatinine 1.52 H Glucose 102 H Calcium 9.2 Cardiac Enzymes 05/24/17 05/25/17 Range/Units 22:57 04:09 Troponin I 0.04 H* 0.04 H* (0-0.03) ng/mL Liver Function 05/25/17 Range/Units 04:09 Total Bilirubin 1.3 H (0.2-1.2) mg/dL AST 20 (5-34) Units/L ALT 7 (0-55) Units/L Alkaline Phosphatase 50 (38-126) Units/L Albumin 3.5 (3.5-5.0) g/dL - ABG Interpretation ABG results: PT/INR, D-dimer PT 15.3 Seconds (9.4-12.1) H 05/25/17 04:09 - Impressions Impressions Head CT 05/24/17 21:52 IMPRESSION: Chronic white matter microvascular ischemic changes. No CT evidence of an acute infarct. D/ / Carlos Cartwright MD / Carlos Cartwright MD Interpreting Provider: Carlos Cartwright MD Consult Discharge Plan - Plan Referrals: Rod Russell MD [Primary Care Provider] -
[2017-05-25 16:33] LABS: Hematocrit 34.9 % (35.3-44.9); Hemoglobin 11.3 g/dL (11.5-15.4)
[2017-05-26 02:49] LABS: Basophils % 0.7 %; Eosinophils # 0.1 K/mcL (0.0-0.6); Hematocrit 35.6 % (35.3-44.9); Hemoglobin 11.6 g/dL (11.5-15.4); Immature Granulocytes % 0.3 % (0-4); Lymphocytes # 1.3 K/mcL (0.6-4.6); Lymphocytes % 22.8 %; Mean Corpuscular HGB Conc 32.6 g/dL (31.6-35.5); Mean Corpuscular Hemoglobin 28.9 pg (28.0-33.3); Mean Corpuscular Volume 88.6 fL (83.0-100.0); Mean Platelet Volume 10.3 fL (9.4-12.4); Monocytes # 0.6 K/mcL (0.0-1.3); Monocytes % 9.4 %; Neutrophils # 3.8 K/mcL (1.6-8.9); Platelet Count 144 K/mcL (140-400); Red Blood Count 4.02 M/mcL (3.82-4.97); Red Cell Distribution Width 13.8 % (11.5-14.5); Segmented Neutrophils % 65.8 %
[2017-05-26 03:04] LABS: Albumin 3.6 g/dL (3.5-5.0); Albumin/Globulin Ratio 1.1 (1.1-2.2); Bilirubin,Total 1.2 mg/dL (0.2-1.2); Calcium 9.6 mg/dL (8.6-10.8); Globulin 3.4 g/dL (2.4-3.5)
[2017-05-26 03:06] LABS: Potassium 3.8 mEq/L (3.5-4.5)
[2017-05-26] MEDS: APIXABAN 2.5 MG TABLET PO SCH (08:21)
[2017-05-26] MEDS: Pantoprazole 40 MG VIAL IVP SCH (08:21)
[2017-05-26] MEDS: Divalproex (12 HR) 250 MG TABLET PO SCH (08:21)
[2017-05-26] MEDS: Renal Vitamin 1 MG CAPSULE PO SCH (08:22)
[2017-05-26] MEDS ORDERED: Metoprolol XL (24 HR) Succ 25 MG TAB.ER.24H PO SCH (09:00)
[2017-05-26] MEDS ORDERED: Cyanocobalamin (B-12) 1,000 MCG TABLET PO SCH (09:00)
--- NOTE | 2017-05-26 10:04 | Discharge Summary ---
Date of Encounter: 05/26/17 Time of Encounter: 07:30 - Discharge Diagnosis (1) TIA (transient ischemic attack) Priority: Primary Status: Acute Comments: Possible TIA - with generalized weakness and dizziness - symptoms now resolved - possible cardiac arrhythmia due to severe systolic dysfunction/cardiomyopathy and atrial fibrillation History of recurrent syncopal episodes and history of seizure disorder Continue Eliquis, add Zocor CT head - no acute infarct, chronic vascular ischemic changes EKG - paced rhythm, no acute changes Troponin - 0.04, likely due to cardiomyopathy Chest x-ray - cardiomegaly without acute process Carotid Doppler - normal Echocardiogram (11/15/2016) - LVEF 35-40%, global LV systolic dysfunction, severe enlargement of the LA Neurology consult - recommendations reviewed Return if symptoms worsen, follow up with PCP and neurology Qualifiers: Transient cerebral ischemia type: other Qualified Code(s): G45.8 - Other transient cerebral ischemic attacks and related syndromes (2) Atrial fibrillation Priority: Primary Status: Chronic Comments: Chronic atrial fibrillation, rate controlled Continue home dose of Toprol-XL, continue anticoagulation with Eliquis Qualifiers: Atrial fibrillation type: chronic Qualified Code(s): I48.2 - Chronic atrial fibrillation (3) CHF (congestive heart failure) Priority: Primary Status: Chronic Comments: Chronic systolic CHF LVEF 35-40% - nonischemic cardiomyopathy, extremely severe enlargement of LA, 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 Continue home dose of Metoprolol XL, Chlorthalidone Not in exacerbation Fluid restriction of 1.5 L per day and advised Qualifiers: Congestive heart failure type: systolic Congestive heart failure chronicity : chronic Qualified Code(s): I50.22 - Chronic systolic (congestive) heart failure (4) CKD (chronic kidney disease) Priority: Secondary Status: Chronic Comments: Chronic kidney disease stage III, stable - creatinine and GFR likely at baseline Qualifiers: Chronic kidney disease stage: stage 3 (moderate) Qualified Code(s): N18.3 - Chronic kidney disease, stage 3 (moderate) (5) Seizure disorder Priority: Secondary Status: Chronic Comments: Continue home dose of Depakote Patient follows up with neurology (6) Hypertension Priority: Secondary Status: Chronic Comments: Essential hypertension, controlled, monitor Continue home dose of Chlorthalidone, Toprol-XL Qualifiers: Hypertension type: essential hypertension Qualified Code(s): I10 - Essential (primary) hypertension - Discharge Medications Prescriptions: Renal Vitamin [Renal Caps Softgel] 1 mg PO DAILY #30 capsule Simvastatin [Zocor] 10 mg PO HS #30 tablet Home Medications: Apixaban [Eliquis] 2.5 mg PO BID 08/11/16 [History] Metoprolol XL (24 HR) Succ [Toprol Xl] 25 mg PO DAILY #30 tab.er.24h 11/24/16 [ Rx] Chlorthalidone 25 mg PO QAM 02/17/17 [History] Potassium Chloride [K-Tab ER] 10 meq PO QAM 02/17/17 [History] Cyanocobalamin (Vitamin B-12) [Vitamin B12] 1,000 mcg PO DAILY 05/24/17 [History ] Divalproex (12 HR) [Depakote (12 HR)] 250 mg PO DAILY 05/24/17 [History] Renal Vitamin [Renal Caps Softgel] 1 mg PO DAILY #30 capsule 05/26/17 [Rx] Simvastatin [Zocor] 10 mg PO HS #30 tablet 05/26/17 [Rx] Allergies/Adverse Reactions: 3 Allergy/AdvReac Type Severity Reaction Status Date / Time azithromycin Allergy Severe Anaphylaxis Verified 04/08/17 11:57 [From Zithromax Z-Kimo] Sulfa (Sulfonamide Allergy Severe Anaphylaxis Verified 04/08/17 11:57 Antibiotics) nitrofurantoin Allergy burning & Verified 04/08/17 11:57 [From Macrodantin] itching Influenza Virus Vaccines AdvReac See Verified 04/08/17 11:57 Comments Procedures/tests Complete & Pending: Procedures Performed prior 72 hours Category Date Time Status CT head/brain wo con [CT] Routine Cat Scan 05/24/17 21:52 Completed EV carotid duplex imaging BI Routine Y 05/25/17 21:54 Completed Date of admission: 05/24/17 18:12 Primary care physician: Rod Russell MD Consults: 05/24/17 21:46 Consult to Occupational Therapy [CONS] Routine Comment: Evaluate, develop and implement POC Reason for Consult: Patient currently experiencing dizziness and weakness. Also reports possible TIAs. Please assess for strength, stability, safety, ambulation, and assistive needs for post-discharge planning. Consult to Clutch Specialist [CONS] Routine Reason for SW Consult: Please assess pt. for home needs for post-discharge planning. 05/24/17 21:47 Consult to Physical Therapy [CONS] Routine Comment: Evaluate, develop and implement POC Reason for Consult: Patient currently experiencing dizziness and weakness. Also reports possible TIAs. Please assess for strength, stability, safety, ambulation, and assistive needs for post-discharge planning. 05/24/17 21:48 Consult to Neurology [CONS] Routine Consulting Provider: Neurology [facility] Reason for Consult: Pt. sees Dr. Holliday and is being admitted for generalized weakness and dizziness. Reports periods of blackouts lasting 20-25 minutes which could represent TIA activity. Pt. currently on Eliquis. Pacemaker/AICD prevents MRI of head/brain. CT of head/brain ordered. Call Completed: No 05/24/17 22:15 Consult to Nutrition [CONS] Routine Comment: Consulting Provider: NUTRITION Reason for Dietary Consult: PO Supplementation Anticipated date of discharge: 05/26/17 - Patient Status Disposition: Home Health Service Condition: Fair Functional capacity at discharge: uses cane/walker Overall status at discharge: patient is back to baseline - Discharge Instructions Instructions: Atrial Fibrillation (DC) Follow Up With: Rod Russell MD [Primary Care Provider] - 05/30/17 11:30 am () Boubacar Lara DO [Non-Partnered Physician] - Norbert Holliday MD [Partnered Physician] - 05/31/17 1:00 pm - Diet and Activity Activity: increase activity as tolerated, resume usual activities as tolerated Diet: low fat, low cholesterol, low salt diet Hospital course: Ms. Canales is a 89 year old female with past medical history atrial fibrillation , CHF, chronic kidney disease, seizure disorder, syncope and TIA. Patient presented to the ED with complaints of dizziness and syncope and generalized weakness. She has a history of chronic syncopal episodes. She does take Eliquis for anticoagulation. Patient was admitted for TIA. Patient's generalized weakness and dizziness had resolved. CT head did not show any acute infarct show some chronic vascular ischemic changes. EKG showed a paced rhythm with no acute ST-T changes. MRI brain could not be done due to the pacemaker. Echocardiogram shows LVEF 35-40% with global LV systolic dysfunction and severe enlargement of LA. Patient's symptoms could be attributed to possible cardiac arrhythmia secondary to cardiomyopathy and possibly due to atrial fibrillation. Patient was continued on Toprol-XL. She was continued on all home medications including anticoagulation. She was on a fluid restriction and strict I's and O's and daily weights. Her chronic kidney disease stage III is stable. She was continued on home dose of Depakote. Neurology has evaluated the patient and advised to continue current medication. Patient has been started on a low-dose of simvastatin. Neurology has also advised that CTA would be of little value in terms of altering treatment. All other labs are fairly within normal limits. Advised to continue all current medication. Patient did not have any other acute events or complications during her stay in the hospital. She has been explained about her condition and plan of care in detail. She understood and agreed. No unanswered questions. Patient is being discharged in stable condition. - Time Spent with Patient Total time spent providing and/or coordinating discharge services: Less than 30 minutes - Constitutional Vitals: Temp Pulse Resp BP Pulse Ox 98.1 F 61 12 128/79 93 05/26/17 07:26 05/26/17 07:26 05/26/17 07:26 05/26/17 07:26 05/26/17 07:26 General appearance: Present: cachectic, cooperative, A&O X 3, pleasant, no acute distress, underweight, answers questions appropriately Exam: Generalized weakness, chronically ill-appearing, frail 89-year-old - Head Head exam: Present: atraumatic - Eye Eye exam: Present: EOMI - ENT ENT exam: Present: mucous membranes moist - Respiratory Respiratory exam: Present: CTAB. Absent: rhonchi, wheezes, tachypnea - Cardiovascular Cardiovascular exam: Present: irregular rhythm, +S1, +S2, systolic murmur - GI/Abdominal GI/Abdominal exam: Present: soft. Absent: distended, firm, guarding, tenderness - Extremities Exam Extremities exam: Present: radial pulses palpable and symmetrical. Absent: calf tenderness, cyanotic, pedal edema - Neurological Exam Neurological exam: Present: alert, CN II-XII intact, oriented X3, no focal deficits. Absent: facial droop, speech deficit
--- NOTE | 2017-05-26 10:12 | Physician Discharge Referral ---
Home Health/Hosp Referral Info Transfer to: Home Health Provider in Charge Post Discharge: PCP - Diagnosis (1) TIA (transient ischemic attack) Priority: Primary Status: Acute (2) Atrial fibrillation Priority: Primary Status: Chronic (3) CHF (congestive heart failure) Priority: Primary Status: Chronic (4) CKD (chronic kidney disease) Priority: Secondary Status: Chronic (5) Seizure disorder Priority: Secondary Status: Chronic (6) Hypertension Priority: Secondary Status: Chronic - Respiratory Orders Smoking Cessation: Smoking cessation has been advised. For more information, call the [place] Tobacco Quit Line at 7-086-LIQT-NOW. - Diet/Nutrition Diet/Nutrition Orders: Cardiac - Activity Activity Orders: Ambulate - Services Needed Following services are medically necessary services: Nursing, Physical Therapy - Transfer Medications Prescriptions: Renal Vitamin [Renal Caps Softgel] 1 mg PO DAILY #30 capsule Simvastatin [Zocor] 10 mg PO HS #30 tablet Home Medications: Apixaban [Eliquis] 2.5 mg PO BID 08/11/16 [History] Metoprolol XL (24 HR) Succ [Toprol Xl] 25 mg PO DAILY #30 tab.er.24h 11/24/16 [ Rx] Chlorthalidone 25 mg PO QAM 02/17/17 [History] Potassium Chloride [K-Tab ER] 10 meq PO QAM 02/17/17 [History] Cyanocobalamin (Vitamin B-12) [Vitamin B12] 1,000 mcg PO DAILY 05/24/17 [History ] Divalproex (12 HR) [Depakote (12 HR)] 250 mg PO DAILY 05/24/17 [History] Renal Vitamin [Renal Caps Softgel] 1 mg PO DAILY #30 capsule 05/26/17 [Rx] Simvastatin [Zocor] 10 mg PO HS #30 tablet 05/26/17 [Rx] Allergies/Adverse Reactions: 3 Allergy/AdvReac Type Severity Reaction Status Date / Time azithromycin Allergy Severe Anaphylaxis Verified 04/08/17 11:57 [From Zithromax Z-Kimo] Sulfa (Sulfonamide Allergy Severe Anaphylaxis Verified 04/08/17 11:57 Antibiotics) nitrofurantoin Allergy burning & Verified 04/08/17 11:57 [From Macrodantin] itching Influenza Virus Vaccines AdvReac See Verified 04/08/17 11:57 Comments Certification: Further, I certify that my clinical findings support that this patient is homebound (i.e. absences from home require considerable and taxing effort and are for medical reasons or sikhism services or infrequently or short duration when for other reasons) because: Homebound Reason: Patient requires assistance of a person or device to safely leave home Attestation: My signature below is to certify that this patient is under my care and that I, or nurse practitioner, or a physician's assistant director of public works working with me, has a face-to -face encounter with this patient.
[2017-05-26 11:33] VITALS: BP 120/58
== END 2017-05-26 14:18 | disposition home health service (06) ==
LOC: EMEROO 14:10 → 3BNU 14:10
PROVIDERS: ADMIT Registered Nurse; ATTEND Registered Nurse